=== PATIENT | male | born 1960 | race Caucasian/White ===

== ENCOUNTER → 2018-06-26 14:16 | Outpatient (CLI) | payer MEDICARE, SELFPAY ==
--- NOTE | 2018-06-26 14:21 | XR_ITS ---
XR hand LT min 3V HISTORY: Left hand pain and swelling ITS.REASON: LT HAND PAIN ORDERING PHYSICIAN: Ritesh Collins MD PATIENT AGE: 58 years COMPARISON: None FINDINGS: No fracture or dislocation. No lytic or blastic change. There is normal mineralization.. The joint spaces are well-preserved. No significant degenerative/arthritic changes. No erosive changes evident.. Tiny subarticular cystic areas present along the radial and distal aspect of the middle phalanx of the third finger according to clinical significance IMPRESSION: No acute finding. Small subarticular cyst of the DIP joint of the third finger
== END ==
PROVIDERS: PCP Internal Medicine Adolescent Medicine; Visit Provider Internal Medicine Adolescent Medicine
DX: M79.642 Pain in left hand (principal)
CPT/HCPCS: 73130

== ENCOUNTER → 2019-02-06 11:52 | Outpatient (CLI) | payer MEDICARE, SELFPAY ==
[2019-02-06 13:34] LABS: Basophils % 0.4 % (0.1-2.0); Eosinophils # 0.1 K/mm3 (0.0-0.4); Eosinophils % 2.2 % (0.1-12.0); Hematocrit 48.3 % (42.0-52.0); Hemoglobin 15.1 g/dL (14.1-18.0); Lymphocytes # 1.8 K/mm3 (0.7-4.5); Lymphocytes % 30.5 % (10-50); Mean Corpuscular HGB Conc 31.2 g/dL (31.8-35.4); Mean Corpuscular Volume 102.5 fl (80-94); Mean Platelet Volume 9.5 fl (7.4-10.4); Monocytes # 0.5 K/mm3 (0.1-1.0); Neutrophils # 3.5 K/mm3 (1.8-7.8); Neutrophils % 57.8 % (37.0-80.0); Platelet Count 191 K/mm3 (142-424); Red Blood Count 4.71 M/mm3 (4.60-6.20); Red Cell Distribution Width 13.6 % (11.5-17.5)
[2019-02-06 16:03] LABS: Alanine Aminotransferase 37 U/L (12-78); Albumin Level 3.4 gm/dL (3.4-5.0); Albumin/Globulin Ratio 0.9 (1.1-1.8); Alkaline Phosphatase 139 U/L (46-116); Anion Gap 12.7 mEq/L (5-15); Aspartate Amino Transferase 28 U/L (15-37); Blood Urea Nitrogen 41 mg/dL (7-18); Calcium 9.6 mg/dL (8.5-10.1); Carbon Dioxide 32 mmol/L (21.0-32.0); Chloride 111 mmol/L (98-107); Creatinine,Serum 1.29 mg/dL (0.70-1.30); Estimated Glomerular Filt Rate 57 ml/min (>60); GFR (African American) 69 ML/MIN (>60); Globulin 3.6 gm/dl (1.3-3.2); Glucose 127 mg/dL (74-106); Potassium 3.7 mmoL/L (3.5-5.1)
[2019-02-06 16:15] LABS: Sodium 152 mmol/L (136-145)
== END ==
PROVIDERS: PCP Nurse Practitioner Family; Visit Provider Nurse Practitioner Family
DX: N17.9 Acute kidney failure, unspecified (principal); E87.0 Hyperosmolality and hypernatremia; R13.10 Dysphagia, unspecified
CPT/HCPCS: 36415; 80053; 85025

== ENCOUNTER → 2020-04-28 09:15 | Outpatient (CLI) | payer MEDICARE, SELFPAY ==
[2020-04-28 15:57] LABS: Chloride 114 mmol/L (98-107); Potassium 4.8 mmoL/L (3.5-5.1)
[2020-04-28 16:00] LABS: Alanine Aminotransferase 198 U/L (12-78); Albumin Level 4.6 g/dl (3.5-5.0); Albumin/Globulin Ratio 1.4 (1.1-1.8); Alkaline Phosphatase 239 U/L (38-126); Anion Gap 8.8 mEq/L (5-15); Aspartate Amino Transferase 119 U/L (17-59); Calcium 10.5 mg/dl (8.4-10.2); Carbon Dioxide 33 mmol/L (22.0-30.0); Globulin 3.3 g/dL (1.3-3.2); Glucose 87 mg/dl (74-100); Total Protein,Serum 7.9 g/dl (6.3-8.2)
[2020-04-28 16:03] LABS: Sodium 151 mmol/L (136-145)
[2020-04-28 16:05] LABS: Blood Urea Nitrogen 39 mg/dl (9-20)
[2020-04-28 16:06] LABS: Estimated Glomerular Filt Rate 69 ml/min (>60); GFR (African American) 83 ML/MIN (>60)
== END ==
PROVIDERS: Visit Provider Internal Medicine Adolescent Medicine
DX: R74.8 Abnormal levels of other serum enzymes (principal)
CPT/HCPCS: 36415; 80053

== ENCOUNTER 2021-04-20 20:18 | Observation (INO) | payer MEDICARE, SELFPAY ==
[2021-04-20] VITALS (17 sets, daily range): BP systolic 105–134; BP diastolic 53–72; PULSE 71–75; RESP 10–22; TEMP 34.1–35; O2SAT 85–99; BMI 20.2
--- NOTE | 2021-04-20 20:27 | ECG_ITS ---
APPROVED REPORT Exam: Resting ECG HR:67 bpm ECG Measurements Heart Rate 67 AXES IL 176 P 76 QRSd 115 QRS 72 QT 427 T 60 QTc 443 Conclusion SINUS RHYTHM INFERIOR MYOCARDIAL INFARCTION , PROBABLY OLD [40+ ms Q WAVE AND/OR ST/T ABNORMALITY IN II/aVF] ABNORMAL ECG UNCONFIRMED REPORT Electronically signed by : Ritesh Collins MD 04/21/2021 20:23:22
--- NOTE | 2021-04-20 20:36 | XR_ITS ---
PROCEDURE INFORMATION: Exam: XR Chest Exam date and time: 04/20/2021 8:36 PM Age: 61 years old Clinical indication: Injury or trauma; Fall; Blunt trauma (contusions or hematomas); Additional info: Seizure w/ fall TECHNIQUE: Imaging protocol: XR of the chest. Views: 4 or more views. COMPARISON: CR XR CHEST 2V 02/04/2019 12:58 AM FINDINGS: Lungs: Unremarkable. No consolidation. Pleural spaces: Unremarkable. No pleural effusion. No pneumothorax. Heart/Mediastinum: Unremarkable. No cardiomegaly. Bones/joints: Degenerative changes of the shoulders. Mild scoliosis. IMPRESSION: No acute findings.
--- NOTE | 2021-04-20 20:36 | XR_ITS ---
PROCEDURE INFORMATION: Exam: XR Pelvis Exam date and time: 04/20/2021 8:36 PM Age: 61 years old Clinical indication: Injury or trauma; Fall; Blunt trauma (contusions or hematomas); Bilateral; Pelvic region; Additional info: Seizure with fall TECHNIQUE: Imaging protocol: XR pelvis. Views: 1 or 2 view. COMPARISON: No relevant prior studies available. FINDINGS: Tubes, catheters and devices: Serrato catheter with tip overlying the expected location of the urinary bladder. Bones/joints: Unremarkable. No acute fracture. Soft tissues: Unremarkable. Gastrointestinal tract: Moderate to large stool burden within the colon. IMPRESSION: No acute findings.
--- NOTE | 2021-04-20 20:36 | CT_ITS ---
PROCEDURE INFORMATION: Exam: CT Head Without Contrast Exam date and time: 04/20/2021 8:36 PM Age: 61 years old Clinical indication: Injury or trauma; Fall; Blunt trauma (contusions or hematomas); Consciousness not specified; Additional info: Seizure TECHNIQUE: Imaging protocol: Computed tomography of the head without contrast. Radiation optimization: All CT scans at this facility use at least one of these dose optimization techniques: automated exposure control; mA and/or kV adjustment per patient size (includes targeted exams where dose is matched to clinical indication); or iterative reconstruction. COMPARISON: [facility] CT HEAD W/O CONTRAST 04/15/2015 1:13 PM FINDINGS: Brain: White matter changes compatible with small vessel occlusive change. No mass. No hemorrhage. Cerebral ventricles: No ventriculomegaly. Paranasal sinuses: Minimal debris within the posterior left maxillary sinus. Mastoid air cells: Visualized mastoid air cells are well aerated. Bones/joints: Mild deviation of the nasal bones left. Soft tissues: No significant soft tissue abnormality. IMPRESSION: Mild deviation of the nasal bones left which is of unknown chronicity. Correlation with point tenderness is recommended. Paranasal sinus disease.
--- NOTE | 2021-04-20 20:38 | CT_ITS ---
PROCEDURE INFORMATION: Exam: CT Cervical Spine Without Contrast Exam date and time: 04/20/2021 8:38 PM Age: 61 years old Clinical indication: Injury or trauma; Fall; Blunt trauma TECHNIQUE: Imaging protocol: Computed tomography images of the cervical spine without contrast. Radiation optimization: All CT scans at this facility use at least one of these dose optimization techniques: automated exposure control; mA and/or kV adjustment per patient size (includes targeted exams where dose is matched to clinical indication); or iterative reconstruction. COMPARISON: [facility] CT HEAD W/O CONTRAST 04/15/2015 1:13 PM FINDINGS: Bones/joints: Moderate to advanced multilevel degenerative changes. No acute fracture. Trachea: Debris within the posterior trachea. Lungs: Scarring at the lung apices. Soft tissues: No soft tissue swelling. IMPRESSION: No acute osseous abnormality. Debris within the posterior trachea which can be seen with aspiration.
[2021-04-20 20:42] LABS: Microscopic, Urine URINE MICROSCOPIC (MICROSCOPIC)
[2021-04-20 21:09] LABS: Basophils % 0.2 % (0.1-2.0); Eosinophils % 0.4 % (0.1-12.0); Hematocrit 41.9 % (42.0-52.0); Hemoglobin 13.7 g/dL (14.1-18.0); Lymphocytes # 1.2 K/mm3 (0.7-4.5); Lymphocytes % 10.1 % (10-50); Mean Corpuscular HGB Conc 32.8 g/dL (31.8-35.4); Mean Corpuscular Hemoglobin 33.3 pg (27.0-31.2); Mean Corpuscular Volume 101.6 fl (80-94); Mean Platelet Volume 9.7 fl (7.4-10.4); Monocytes # 0.6 K/mm3 (0.1-1.0); Monocytes % 5.1 % (1.7-9.3); Neutrophils # 9.8 K/mm3 (1.8-7.8); Neutrophils % 84.2 % (37.0-80.0); Platelet Count 152 K/mm3 (142-424); Red Blood Count 4.12 M/mm3 (4.60-6.20); Red Cell Distribution Width 16.2 % (11.5-17.5); White Blood Count 11.6 K/mm3 (4.8-10.8)
[2021-04-20 21:11] LABS: Alanine Aminotransferase 123 U/L (12-78); Albumin Level 4.2 g/dl (3.5-5.0); Albumin/Globulin Ratio 1.5 (1.1-1.8); Alkaline Phosphatase 153 U/L (38-126); Anion Gap 7.7 mEq/L (5-15); Aspartate Amino Transferase 119 U/L (17-59); Bilirubin,Total 0.6 mg/dl (0.2-1.3); Blood Urea Nitrogen 42 mg/dl (9-20); Calcium 9.8 mg/dl (8.4-10.2); Carbon Dioxide 32 mmol/L (22.0-30.0); Chloride 111 mmol/L (98-107); Creatine Kinase 117 U/L (55-170); Creatinine Clearance Estimated 81 mL/min (50-200); Estimated Glomerular Filt Rate 86 ml/min (>60); GFR (African American) 104 ML/MIN (>60); Globulin 2.8 g/dL (1.3-3.2); Glucose 95 mg/dl (74-100); Potassium 4.7 mmoL/L (3.5-5.1); Sodium 146 mmol/L (136-145)
[2021-04-20 21:16] LABS: C-Reactive Protein 2.8 mg/L (0-4)
[2021-04-20 21:21] LABS: Appearance,Urine CLEAR (Clear); Bilirubin,Urine Negative (Negative); Blood, Urine Negative (Negative); Color,Urine YELLOW (Yellow); Glucose,Urine (UA) Negative (Negative); Ketones,Urine Negative (Negative); Leukocyte Esterase,Urine Negative (Negative); Nitrate,Urine Negative (Negative); PH,Urine 6.5 (5.0-8.5); Protein,Urine 1+ (Negative); Urobilinogen,Urine 0.2 EU/dl (0.2)
[2021-04-20 21:30] LABS: Procalcitonin 0.086 ng/mL (0.0-2.0)
[2021-04-20 21:39] LABS: Coronavirus 19, PCR Not Detected (NotDetected); Influenza A, PCR Not Detected (NotDetected); Influenza B, PCR Not Detected (NotDetected)
--- NOTE | 2021-04-20 21:42 | HMH.EDSEIZ ---
ED Disposition Clinical Impression: New onset seizure Disposition: Admitted as Observation Condition on Discharge: Good Instructions: DI for Seizure Disorder -- Adult, DI for Seizure (Not Epilepsy/Seizure Disorder), DI for Seizure Disorder -- Child Referrals: Ritesh Collins MD [Primary Care Provider] - - Critical Care Critical Care Time: No Attestation: On 04/20/21, the high probability of a clinically significant, sudden or life threatening deterioration of the following system(s) required my full and direct attention, intervention and personal management. The time I documented below is in addition to time spent performing reported procedures but includes the following listed in this critical care notation. Medical Decision Making - Medical Records Medical records reviewed: Yes: I reviewed the patient's medical records. - Juan J Inquiry Pt receiving controlled substance: No Vital Signs: 04/20/21 20:08 Temperature 95 F L Temperature Source Rectal Pulse Rate [Left] 72 Respiratory Rate 16 Blood Pressure [Right Arm] 105/66 L Blood Pressure Mean [Right Arm] 79 02 Sat by Pulse Oximetry 95 Oxygen Delivery Method Room Air - Lab Data Lab results reviewed: Yes: I reviewed the patient's lab results. Lab Results 04/20/21 20:34: Urine Color Yellow, Urine Appearance Clear, Urine pH 6.5, Ur Specific [place] 1.020, Urine Protein 1+, Urine Glucose (UA) Negative, Urine Ketones Negative, Urine Blood Negative, Urine Nitrate Negative, Urine Bilirubin Negative, Urine Urobilinogen 0.2, Ur Leukocyte Esterase Negative, Urine WBC Occasional 04/20/21 20:34: Urine Opiates Screen Negative, Urine Methadone Screen Negative, Ur Barbituates Screen Negative, Ur Phencyclidine Scrn Negative, Ur Amphetamines Screen Negative, U Benzodiazepines Scrn Positive H, Urine Cocaine Screen Negative, U Marijuana (THC) Screen Positive H 04/20/21 20:37: SARS-CoV-2 (PCR) Not detected, Influenza A Untype (PCR) Not detected, Influenza Type B (PCR) Not detected 04/20/21 20:48: WBC 11.6 H, RBC 4.12 L, Hgb 13.7 L, Hct 41.9 L, MCV 101.6 H, MCH 33.3 H, MCHC 32.8, RDW 16.2, Plt Count 152, MPV 9.7, Neut % (Auto) 84.2 H, Lymph % (Auto) 10.1, [place] % (Auto) 5.1, Eos % (Auto) 0.4, Baso % (Auto) 0.2, Neut # (Auto) 9.8 H, Lymph # (Auto) 1.2, [place] # (Auto) 0.6, Eos # (Auto) 0.0, Baso # (Auto) 0.0, ESR 31 H 04/20/21 20:48: Sodium 146 H, Potassium 4.7, Chloride 111 H, Carbon Dioxide 32 H, Anion Gap 7.7, BUN 42 H, Creatinine 0.90, Estimated Creat Clear 81, Estimated GFR 86, Est GFR ( Amer) 104, Glucose 95, Calcium 9.8, Total Bilirubin 0.6, AST 119 H, ALT 123 H, Alkaline Phosphatase 153 H, Total Creatine Kinase 117, C-Reactive Protein 2.8, Total Protein 7.0, Albumin 4.2, Globulin 2.8, Albumin/Globulin Ratio 1.5, Procalcitonin 0.086 04/20/21 20:48: Lactate 1.0 04/20/21 20:48: Plasma/Serum Alcohol < 10 04/20/21 20:48: Salicylates < 1.0 L, Acetaminophen < 10 L Result diagrams: 04/20/21 20:48 04/20/21 20:48 Orders (Tests/Meds): ED MEDICATIONS Discontinued Medications Generic Name Dose Route Start Last Admin Trade Name Freq PRN Reason Stop Dose Admin Levetiracetam 1,000 mg/ Sodium 110 mls @ 220 mls/hr 04/20/21 22:26 Chloride IV 04/20/21 22:27 ONCE ONE ORDERS Category Date Time Status Blood Culture Stat Micro 04/20/21 20:38 Received - Radiology Data #1 Image(s): Chest, Pelvis Image Reviewed: Yes I have reviewed radiologist's interpretation Preliminary Findings: No Fracture Seen - CT Data CT Scan: Head, C-Spine Time Received: 22:[address] Reviewed: Yes: I have viewed the radiologist's interpretation Preliminary Findings: No Fracture Seen - ECG Data Tracing #1 Normal Sinus Rhythm: Yes Ischemic changes: non-specific ST-T wave changes - Physician Consults Physician Consulted: jennifer Reason -: Admission Medical Decision Narrative: prob sz and will be admitted at this time Seizures HPI - General Chief Complaint:
--- NOTE | 2021-04-20 21:43 | PC.NURSE ---
pt waking up disoriented attempting to pull lines and cath. pads in place. doc at bedside
[2021-04-20 21:51] LABS: Acetaminophen < 10 ug/ml (10-30); Ethyl Alcohol < 10 mg/dl (0-10); Salicylate < 1.0 mg/dL (2.0-20.0)
[2021-04-20 21:53] LABS: WBC,Urine Occasional #/hpf (0-3)
[2021-04-20 22:01] LABS: Benzodiazepines Screen,Urine Positive ng/ml (<200)
[2021-04-20 22:02] LABS: Amphetamine/Metha Screen,Urine Negative ng/ml (<1000)
[2021-04-20 22:03] LABS: Barbiturates Screen,Urine Negative ng/ml (<200)
[2021-04-20 22:04] LABS: Cannabinoid Screen,Urine Positive ng/ml (<50); Cocaine Screen,Urine Negative ng/ml (<300)
[2021-04-20 22:05] LABS: Methadone Screen,Urine Negative ng/ml (<300); Opiate Screen,Urine Negative ng/ml (<300)
[2021-04-20 22:06] LABS: Phencyclidine Screen,Urine Negative ng/ml (<25)
[2021-04-20 22:09] LABS: Erythrocyte Sedimentation Rate 31 mm/hr (0-20)
--- NOTE | 2021-04-20 23:12 | PC.NURSE ---
Patients temperature upon arrival to ER was 95.0f rectally. patient was given two warm blankets and warm iv fluids. Patients temperature was again rechecked at 2300 and temperature was 93.4 rectally. Patient placed on mara rodriguez MD notified.
[2021-04-21] VITALS (9 sets, daily range): BP systolic 98–133; BP diastolic 49–100; PULSE 61–97; RESP 16–20; TEMP 35.1–36.7; O2SAT 93–100; BMI 17.2
--- NOTE | 2021-04-21 01:08 | PC.NURSE ---
PT ARRIVED TO FLOOR VIA STRETCHER FROM ED W/STAFF @ [phone]
[2021-04-21 06:15] LABS: Basophils % 0.3 % (0.1-2.0); Eosinophils % 0.3 % (0.1-12.0); Hematocrit 38.3 % (42.0-52.0); Hemoglobin 12.7 g/dL (14.1-18.0); Lymphocytes # 1.6 K/mm3 (0.7-4.5); Lymphocytes % 13.8 % (10-50); Mean Corpuscular Hemoglobin 33.1 pg (27.0-31.2); Mean Corpuscular Volume 100.1 fl (80-94); Monocytes # 0.7 K/mm3 (0.1-1.0); Monocytes % 6.1 % (1.7-9.3); Neutrophils # 9.1 K/mm3 (1.8-7.8); Neutrophils % 79.5 % (37.0-80.0); Platelet Count 144 K/mm3 (142-424); Red Blood Count 3.83 M/mm3 (4.60-6.20); Red Cell Distribution Width 16.1 % (11.5-17.5); White Blood Count 11.4 K/mm3 (4.8-10.8)
[2021-04-21 06:25] LABS: Chloride 111 mmol/L (98-107); Potassium 4.3 mmoL/L (3.5-5.1); Sodium 143 mmol/L (136-145)
[2021-04-21 06:27] LABS: Blood Urea Nitrogen 33 mg/dl (9-20); Creatinine Clearance Estimated 69 mL/min (50-200); Estimated Glomerular Filt Rate 86 ml/min (>60); GFR (African American) 104 ML/MIN (>60)
[2021-04-21 06:28] LABS: Anion Gap 5.3 mEq/L (5-15); Calcium 8.7 mg/dl (8.4-10.2); Carbon Dioxide 31 mmol/L (22.0-30.0); Glucose 54 mg/dl (74-100); Magnesium 1.6 mg/dl (1.6-2.3)
--- NOTE | 2021-04-21 06:29 | PC.NURSE ---
pt has not rested well, has been pulling at lines and catheter, PRN medications given for anxiety with little change in behavior, is alert to name, birthdate, and that he is at [facility], but has confusion and has repeated words over and over, catheter D/C this shift per Dr. Collins
--- NOTE | 2021-04-21 08:12 | HMH.PHAVTE ---
[facility] Pharmacy VTE Monitoring - Patient Demographics Admission date: 04/21/21 Report Date: 04/21/21 Time: 08:12 Allergies/Adverse Reactions: Patient Allergies No Known Allergies Allergy (Verified 02/04/19 00:37) Height: 1.8 m Weight: 55.928 kg Patient Problems: Current Active Problems New onset seizure (Acute) - VTE Risk Labs: VTE Related Lab Results Hgb 12.7 g/dL (14.1-18.0) L 04/21/21 05:12 Hct 38.3 % (42.0-52.0) L 04/21/21 05:12 Plt Count 144 K/mm3 (142-424) 04/21/21 05:12 BUN 33 mg/dl (9-20) H 04/21/21 05:12 Creatinine 0.90 mg/dl (0.66-1.25) 04/21/21 05:12 Estimated Creat Clear 69 mL/min (50-200) 04/21/21 05:12 Was VTE Risk Assessment Performed: Yes VTE Score: 2 VTE Risk Level: Very Low Risk Clinical Trial Participant: No - Prophylaxis VTE Prophylaxis Ordered?: Yes Types of VTE Prophylaxis: TEDS Knee High
--- NOTE | 2021-04-21 08:40 | HMH.HP ---
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 Unfortunately yesterday while at home with his family he became unresponsive, had some tonic-clonic activity, drooling, eye rotation, EMS was called and witnessed what appeared to be generalized tonic-clonic seizure activity. He was given Versed intravenously and by the time he got to the emergency department this had stopped but he was exhibiting post ictal behaviors and was very somnolent. CT scan in the ER was unremarkable, labs were unrevealing and we decided to admit patient to hospital and I had him loaded with Keppra, 1000 mg IV in the ER. Patient now is in second floor for observation and further diagnostic testing. He is alert, talkative but remains disoriented. 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, lives independently and performs ADLs of center home Other Surgeries: Yes: Cardiac Catheterization Amputation: No Fractures: No - *Social History Smoking Status: Current every day smoker Tobacco Type: cigarettes # Packs/Day (cigarettes): 2 Alcohol Intake: never *Occupational Status:: disabled Household Members: none *Travel in the last 8 weeks: None Family Hx:: No significant family history Review of Systems - Review of Systems Review of systems:: unable to obtain Meds Home Medications Medication Instructions Recorded Confirmed Type Atorvastatin Calcium [Lipitor 20mg 20 mg PO HS 04/20/21 04/20/21 History Tablet*] Omeprazole [Omeprazole 20mg 20 mg PO DAILY 04/20/21 04/20/21 History Capsule] Allergies Allergy/AdvReac Type Severity Reaction Status Date / Time No Known Allergies Allergy Verified 02/04/19 00:37 Exam Vital signs and Labs for Last 24 Hours: Temp Pulse Resp BP Pulse Ox 97.7 F 64 16 116/50 L 96 04/21/21 08:00 04/21/21 08:00 04/21/21 08:00 04/21/21 08:00 04/21/21 08:00 Laboratory Results - last 24 hr 04/20/21 20:34: Urine Color Yellow, Urine Appearance Clear, Urine pH 6.5, Ur Specific [place] 1.020, Urine Protein 1+, Urine Glucose (UA) Negative, Urine Ketones Negative, Urine Blood Negative, Urine Nitrate Negative, Urine Bilirubin Negative, Urine Urobilinogen 0.2, Ur Leukocyte Esterase Negative, Urine WBC Occasional 04/20/21 20:34: Urine Opiates Screen Negative, Urine Methadone Screen Negative, Ur Barbituates Screen Negative, Ur Phencyclidine Scrn Negative, Ur Amphetamines Screen Negative, U Benzodiazepines Scrn Positive H, Urine Cocaine Screen Negative, U Marijuana (THC) Screen Positive H 04/20/21 20:37: SARS-CoV-2 (PCR) Not detected, Influenza A Untype (PCR) Not detected, Influenza Type B (PCR) Not detected 04/20/21 20:48: WBC 11.6 H, RBC 4.12 L, Hgb 13.7 L, Hct 41.9 L, MCV 101.6 H, MCH 33.3 H, MCHC 32.8, RDW 16.2, Plt Count 152, MPV 9.7, Neut % (Auto) 84.2 H, Lymph % (Auto) 10.1, [place] % (Auto) 5.1, Eos % (Auto) 0.4, Baso % (Auto) 0.2, Neut # (Auto) 9.8 H, Lymph # (Auto) 1.2, [place] # (Auto) 0.6, Eos # (Auto) 0.0, Baso # (Auto) 0.0, ESR 31 H 04/20/21 20:48: Sodium 146 H, Potassium 4.7, Chloride 111 H, Carbon Dioxide 32 H, Anion Gap 7.7, BUN 42 H, Creatinine 0.90, Estimated Creat Clear 81, Estimated GFR 86, Est GFR ( Amer) 104, Glucose 95, Calcium 9.8, Total Bilirubin 0.6, AST 119 H, ALT 123 H, Alkaline Phosphatase 153 H, Total Creatine Kinase 117, C-Reactive Prote
--- NOTE | 2021-04-21 10:18 | PC.NURSE ---
RT @ bedside to perform EEG
--- NOTE | 2021-04-21 13:14 | PC.NURSE ---
Addendum entered by Brooklyn Vieyra RN 04/21/21 18:06: No acute changes this afternoon. Pt has slept at intervals this shift. Family have been in periodically to see patient as well. Pt is cooperative and pleasant w/ staff. Diet changed to chopped meats d/t pt's poor dentition. No complaints voiced. Safety in place. Original Note: Pt awake, alert and is able to speak in sentences. Pt is tearful occasionally, but states he doesn't know why he is crying and continues to apologize to staff. Father is present at bedside. Pt cooperative w/ staff and not trying to get out of bed independently. Safety does remain in place, call linus w/in reach.
--- NOTE | 2021-04-21 21:25 | PC.NURSE ---
Pt's rectal temp 95.0, applied warm blankets, and increased room temp, will recheck temp in one hour.
[2021-04-22] VITALS: BP 91/47; PULSE 51; RESP 16; TEMP 36.4; O2SAT 96
[2021-04-22 04:00] VITALS: BP 101/49; PULSE 47; RESP 16; TEMP 36.4; O2SAT 98
[2021-04-22 05:16] VITALS: BMI 17.2
[2021-04-22 06:44] LABS: Chloride 107 mmol/L (98-107); Potassium 4.2 mmoL/L (3.5-5.1); Sodium 137 mmol/L (136-145)
--- NOTE | 2021-04-22 06:44 | PC.NURSE ---
Pt temp improved and remained stable t/o shift. Pt was cooperative t/o night and slept well. Bed safety remains in place.
[2021-04-22 06:47] LABS: Alanine Aminotransferase 87 U/L (12-78); Albumin Level 3.4 g/dl (3.5-5.0); Albumin/Globulin Ratio 1.4 (1.1-1.8); Alkaline Phosphatase 134 U/L (38-126); Anion Gap 4.2 mEq/L (5-15); Aspartate Amino Transferase 89 U/L (17-59); Bilirubin,Total 0.9 mg/dl (0.2-1.3); Blood Urea Nitrogen 27 mg/dl (9-20); Calcium 8.4 mg/dl (8.4-10.2); Carbon Dioxide 30 mmol/L (22.0-30.0); Creatinine Clearance Estimated 69 mL/min (50-200); Estimated Glomerular Filt Rate 86 ml/min (>60); GFR (African American) 104 ML/MIN (>60); Globulin 2.5 g/dL (1.3-3.2); Glucose 65 mg/dl (74-100); Total Protein,Serum 5.9 g/dl (6.3-8.2)
[2021-04-22 06:48] LABS: Basophils % 0.2 % (0.1-2.0); Eosinophils # 0.1 K/mm3 (0.0-0.4); Eosinophils % 1.5 % (0.1-12.0); Hematocrit 35.7 % (42.0-52.0); Hemoglobin 11.6 g/dL (14.1-18.0); Lymphocytes % 35.7 % (10-50); Mean Corpuscular HGB Conc 32.4 g/dL (31.8-35.4); Mean Corpuscular Hemoglobin 32.9 pg (27.0-31.2); Mean Corpuscular Volume 101.4 fl (80-94); Mean Platelet Volume 10.3 fl (7.4-10.4); Monocytes # 0.3 K/mm3 (0.1-1.0); Monocytes % 5.8 % (1.7-9.3); Neutrophils # 3.1 K/mm3 (1.8-7.8); Neutrophils % 56.7 % (37.0-80.0); Platelet Count 115 K/mm3 (142-424); Red Blood Count 3.52 M/mm3 (4.60-6.20); Red Cell Distribution Width 16.1 % (11.5-17.5); White Blood Count 5.5 K/mm3 (4.8-10.8)
--- NOTE | 2021-04-22 07:25 | HMH.ACPN2 ---
Internal Medicine - PN: Subj *Date: 04/22/21 *Time: 07:25 Exam Vital signs and Labs for Last 24 Hours: Temp Pulse Resp BP Pulse Ox 97.6 F 47 L 16 101/49 L 98 04/22/21 04:00 04/22/21 04:00 04/22/21 04:00 04/22/21 04:00 04/22/21 04:00 Laboratory Results - last 24 hr 04/22/21 05:19: WBC 5.5 D, RBC 3.52 L, Hgb 11.6 L, Hct 35.7 L, MCV 101.4 H, MCH 32.9 H, MCHC 32.4, RDW 16.1, Plt Count 115 L, MPV 10.3, Neut % (Auto) 56.7, Lymph % (Auto) 35.7, [place] % (Auto) 5.8, Eos % (Auto) 1.5, Baso % (Auto) 0.2, Neut # (Auto) 3.1, Lymph # (Auto) 2.0, [place] # (Auto) 0.3, Eos # (Auto) 0.1, Baso # (Auto) 0.0 04/22/21 05:19: Sodium 137, Potassium 4.2, Chloride 107, Carbon Dioxide 30, Anion Gap 4.2 L, BUN 27 H, Creatinine 0.90, Estimated Creat Clear 69, Estimated GFR 86, Est GFR ( Amer) 104, Glucose 65 L, Calcium 8.4, Total Bilirubin 0.9, AST 89 H D, ALT 87 H D, Alkaline Phosphatase 134 H, Total Protein 5.9 L, Albumin 3.4 L D, Globulin 2.5, Albumin/Globulin Ratio 1.4 I & O for Last 24 hours: Intake & Output 04/19/21 04/20/21 04/21/21 04/22/21 23:59 23:59 23:59 23:59 Intake Total 1238 / 1238 Output Total 800 / 800 Balance 438 / 438 Weight 65.771 kg 55.928 kg 55.883 kg Assessment and Plan (1) History of coronary atherosclerosis Status: Acute Category: Medical Code(s): Z86.79 - Personal history of other diseases of the circulatory system (2) History of traumatic brain injury Status: Acute Category: Medical Code(s): Z87.820 - Personal history of traumatic brain injury (3) Cognitive impairment Status: Acute Category: Medical Code(s): R41.89 - Other symptoms and signs involving cognitive functions and awareness (4) New onset seizure Status: Acute Category: Medical Code(s): R56.9 - Unspecified convulsions
[2021-04-22 08:00] VITALS: BP 115/70; PULSE 51; RESP 22; TEMP 36.4; O2SAT 95
--- NOTE | 2021-04-22 09:12 | PC.NURSE ---
Spoke to patient's brother (Chris) this AM, updated on plan of care. Brother gave his # for DC planning to call , gave this # to Dagmar as well w/ case management.
--- NOTE | 2021-04-22 09:22 | SW/DCPLANNER ---
Addendum entered by Noy Sparks 04/22/21 14:58: Gayla suggs/ [facility] has stated that services will begin on 04/27/21. Addendum entered by Noy Sparks 04/22/21 12:33: Patient information/order has been faxed to [facility]. I will follow up with Gayla from [facility] once information/order is reviewed. Original Note: I spoke with patients brother (Chris) regarding discharge plans. I explained to Chris that Dr Saini stressed the importance of home with family 24/7 vs placement. Chris stated that prior to hospital admission patient was living at home alone: the plan at discharge is for patient to move in with his father. I informed Chris that PT will evaluate patient this AM then I will call him back with updates. This patient could potentially discharge later today.
--- NOTE | 2021-04-22 10:47 | HMH.OTEV ---
OT Inpatient Evaluation Rehab OT IP Evaluation Start: 04/22/21 08:01 Freq: ONCE Status: Complete Protocol: Document 04/22/21 10:35 [email or web address] (Rec: 04/22/21 10:47 [facility] [id number]) Rehab OT IP Assessment Subjective History Pt oriented x 3 on arrival. Pt agreeable to engage in therapy evaluation. Pt was admitted via ED on 09/17/21 due to a seizure. 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 Unfortunately yesterday while at home with his family he became unresponsive, had some tonic-clonic activity, drooling, eye rotation, EMS was called and witnessed what appeared to be generalized tonic-clonic seizure activity. He was given Versed intravenously and by the time he got to the emergency department this had stopped but he was exhibiting post ictal behaviors and was very somnolent. CT scan in the ER was unremarkable, labs were unrevealing and we decided to admit patient to hospital and I had him loaded with Keppra, 1000 mg IV in the ER. Patient now is in second floor for observation and further diagnostic testing. Pt has a past medical history of Atherosclerotic Heart Disease, Coronary Artery Disease. Pt reports pior to his seizure he lived at home alone. He
[2021-04-22 10:58] VITALS: BMI 16.9
--- NOTE | 2021-04-22 11:20 | HMH.PTEV ---
Physical Therapy Evaluation Rehab PT IP Evaluation Start: 04/22/21 08:01 Freq: ONCE Status: Active Protocol: Document 04/22/21 11:17 PHORNE (Rec: 04/22/21 11:20 PHORNE [id number]) Subjective/History History History 61 yowm adm to [facility] after seizure at home. He reports he lives alone, 4-5 steps to enter the home and is generally independent with all mobility using SC. He does have remote hx of TBI. Subjective Subjective Pt reports no new c/o this am. Rehab PT IP Eval Objective Appearance Patient Behavior Appropriate Patient Orientation Person,Place,Time Difficulty following instructions none Speech Pattern Clear Ambulation Patient Able to Ambulate Yes Ambulation Observation IP General Gait Pattern Observation Shuffling Step Ambulation Distance (feet) 20 Ambulation Assistive Device None Ambulation Ability Contact Guard/Hand Hold Balance Ability to Arise Able, uses arms to help Sitting Balance Steady, safe Standing Balance Steady, wide stance Dynamic Sitting Balance Ability Good Dynamic Standing Balance Ability Fair Transfers Bed Transfer Ability Contact Guard/Hand Hold Chair Transfer Ability Contact Guard/Hand Hold Sit to Stand Bed Transfer Ability Contact Guard/Hand Hold Sit to Stand Chair Transfer Ability Contact Guard/Hand Hold Rehab PT IP prob,goals,plan Problems Date of Evaluation: 04/22/21 PT IP Problems Bed Mobility,Transfers,Gait, Self care Rehab Potential Rehab Potential Good Plan PT Intervention Plan Bed Mobility,Transfers,Gait, Self care,Therapeutic Exercise PT Plan Frequency BID Duration LOS Discharge Goals Bed Transfer Ability Supervision/Stand by Sit to Stand Chair Transfer Ability Supervision/Stand by Ambulation Assistive Device Straight Cane Ambulation Distance (feet) 40 Discharge Plan PT Discharge Plan Pt is currently appropriate to return home once medically stable with family assist. G -code Required No Eval Complexity Eval Charge Codes 86402 - Moderate Complexity PHYSICIAN CERTIFICATION: I certify the specified therapy services for Rafa Driscoll are required, authorized, and reviewed every 30 days.
--- NOTE | 2021-04-22 13:35 | HMH.DCSUM ---
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 Unfortunately yesterday while at home with his family he became unresponsive, had some tonic-clonic activity, drooling, eye rotation, EMS was called and witnessed what appeared to be generalized tonic-clonic seizure activity. He was given Versed intravenously and by the time he got to the emergency department this had stopped but he was exhibiting post ictal behaviors and was very somnolent. CT scan in the ER was unremarkable, labs were unrevealing and we decided to admit patient to hospital and I had him loaded with Keppra, 1000 mg IV in the ER. Patient now is in second floor for observation and further diagnostic testing. He is alert, talkative but remains disoriented. Hospital Course Hospital Course: 61-year-old male with history of traumatic brain injury. Came to the ER due to new onset seizure. Brought in by EMS. 2 witnessed seizures by family and hospital/EMS. Responded well to Versed. Started on Keppra p.o. Tolerating well with no further seizure activity during hospitalization. Drug screen interestingly positive for marijuana. Given traumatic brain injury, toxin exposure, suspect these are likely the cause of his seizure. CT obtained with no gross abnormalities or focal findings. No signs of stroke. Deferred on EEG there is no further seizure activity. Consider further work-up in the outpatient setting. Pt back to baseline. Patient pleasant on day of discharge. Examined with no focal findings. Assessed by physical therapy and Occupational Therapy. Plan to discharge home with family so he can be observed. Counseled on new medication and potential side effects. We will potentially adjust dose in the outpatient setting. close follow-up in the next 1-2 weeks. stable for DC home. Objective Vital signs: Temp Pulse Resp BP Pulse Ox 97.5 F L 51 L 22 115/70 95 04/22/21 08:00 04/22/21 08:00 04/22/21 08:00 04/22/21 08:00 04/22/21 08:00 Narrative: - Constitutional no acute distress, thin, disheveled, alert, baseline mentation - *Routine HEENT Exam Head: Present: normocephalic Eye: Present: EOMI, PERRL ENT: Present: mucous membranes moist, poor dentition - *Routine Neck Exam Present: supple. Absent: lymphadenopathy - *Routine Respiratory Exam Present: CTA bilaterally - *Routine Cardiovascular Exam Present: RRR - *Routine Abdominal Exam Present: soft, normoactive bowel sounds. Absent: tenderness - *Routine Extremities Exam Present: full ROM. Absent: cyanosis, clubbing, edema - *Routine Skin Exam Present: warm. Absent: rash - *Routine Neurological Exam Present: alert; Patient is very verbal, however has somewhat of a word salad conversation, continues to go back and forth between talking about eating and going to the bathroom. pleasant. Mood and affect congruent; He is able to move arms and legs well. No grossly abnormal cranial nerves. Results Labs on day of discharge: Labs from last 24 hours 04/22/21 04/22/21 05:19 05:19 WBC 5.5 D RBC 3.52 L Hgb 11.6 L Hct 35.7 L MCV 101.4 H MCH 32.9 H MCHC 32.4 RDW 16.1 Plt Count 115 L MPV 10.3 Neut % (Auto) 56.7 Lymph % (Auto) 35.7 Carver % (Auto) 5.8 Eos % (Auto) 1.5 Baso % (Auto) 0.2 Neut # (Auto) 3.1 Lymph # (Auto) 2.0 Carver # (Auto) 0.3 Eos # (Auto) 0.1 Baso # (Auto) 0.0 Sodium 137 Potassium 4.2 Chloride 107 Carbon Dioxide 30 Anion Gap 4.2 L BUN 27 H Creatinine 0.90 Estimated Creat Clear 69 Estimated GFR 86 Est GFR ( Amer) 104 Glucose 65 L Calcium 8.4 Total Bilirubin 0.9 AST 89
--- NOTE | 2021-04-22 13:57 | HMH.PHAINT ---
Discharge counseling complete. Informed patient of new medications, purpose, how to take, and possible side effects. Pt understood and had no questions or concerns
== END 2021-04-22 14:34 | disposition home or self-care (01) ==
LOC: ER 20:28 → 2ND 22:32
PROVIDERS: Admitting Provider Internal Medicine Adolescent Medicine; Emergency Provider Emergency Medicine; PCP Internal Medicine Adolescent Medicine; Visit Provider Internal Medicine Adolescent Medicine
DX: R56.9 Unspecified convulsions (principal); Z87.820 Personal history of traumatic brain injury; R41.89 Other symptoms and signs involving cognitive functions and awareness; F17.210 Nicotine dependence, cigarettes, uncomplicated; R64 Cachexia; Z68.1 Body mass index [BMI] 19.9 or less, adult; Z20.822 Contact with and (suspected) exposure to COVID-19; Z79.899 Other long term (current) drug therapy
CPT/HCPCS: G0378; 36415; 70450; 71045; 72125; 72170; 80048; 80053; 80305; 80329; 81001; 82550; 83605; 83735; 84145; 85025; 85651; 86140; 87040; 93005; 95816; 96365; 97116; 97162; 97166; 97530; 99284; C9803; J1953; U0003; U0005

== ENCOUNTER 2021-05-09 13:31 | Outpatient (CLI) | payer MEDICARE, SELFPAY ==
[2021-05-09 13:54] VITALS: BMI 16.4
[2021-05-09 14:00] VITALS: BP 122/64; PULSE 44; RESP 18; TEMP 36.4; O2SAT 100
[2021-05-09 14:30] VITALS: BP 119/60; PULSE 49; RESP 18; O2SAT 99
[2021-05-09 15:04] LABS: Basophils # 0.1 K/mm3 (0-0.2); Basophils % 0.7 % (0.1-2.0); Eosinophils # 0.1 K/mm3 (0.0-0.4); Eosinophils % 1.2 % (0.1-12.0); Hematocrit 46.2 % (42.0-52.0); Lymphocytes # 2.2 K/mm3 (0.7-4.5); Lymphocytes % 27.5 % (10-50); Mean Corpuscular HGB Conc 30.3 g/dL (31.8-35.4); Mean Corpuscular Hemoglobin 32.9 pg (27.0-31.2); Mean Corpuscular Volume 108.6 fl (80-94); Mean Platelet Volume 10.2 fl (7.4-10.4); Monocytes # 0.4 K/mm3 (0.1-1.0); Monocytes % 4.7 % (1.7-9.3); Neutrophils # 5.2 K/mm3 (1.8-7.8); Neutrophils % 65.9 % (37.0-80.0); Platelet Count 166 K/mm3 (142-424); Red Blood Count 4.25 M/mm3 (4.60-6.20)
[2021-05-09 15:15] VITALS: BP 107/48; PULSE 48; RESP 18; O2SAT 99
[2021-05-09 15:33] LABS: Anion Gap 10.4 mEq/L (5-15); Blood Urea Nitrogen 70 mg/dl (9-20); Calcium 9.3 mg/dl (8.4-10.2); Carbon Dioxide 29 mmol/L (22.0-30.0); Chloride 115 mmol/L (98-107); Creatinine Clearance Estimated 70 mL/min (50-200); Estimated Glomerular Filt Rate 99 ml/min (>60); GFR (African American) 119 ML/MIN (>60); Glucose 76 mg/dl (74-100); Potassium 4.4 mmoL/L (3.5-5.1)
[2021-05-09 15:35] LABS: Sodium 150 mmol/L (136-145)
--- NOTE | 2021-05-09 15:51 | PC.NURSE ---
05/09/21 1534 Bj Najera called Braden Michael RN at 1534 to report na level 150. RN repeated and verified pt name, , and lab value. Result called to Ayanna Aguila APRN/Dr. Collins, no new orders noted.
== END 2021-05-09 15:50 | disposition home or self-care (01) ==
PROVIDERS: PCP Internal Medicine Adolescent Medicine; Visit Provider Nurse Practitioner Family
DX: E87.0 Hyperosmolality and hypernatremia (principal)
CPT/HCPCS: 80048; 85025; 96360

== ENCOUNTER → 2021-05-12 08:16 | Outpatient (CLI) | payer MEDICARE, SELFPAY ==
--- NOTE | 2021-05-12 09:02 | MR_ITS ---
FINAL REPORT CLINICAL HISTORY: WEAKNESS.. UNABLE TO WALK. 10ML PROHANCE GIVEN. SEIZURE FINDINGS: Multiplanar MR imaging of the brain was performed without and with contrast. There is no evidence of intracranial hemorrhage or mass. No abnormal extra-axial fluid collection is seen. The ventricular size is within normal limits. There is no evidence of shift of the midline structures. The posterior fossa and brainstem have an unremarkable appearance. No area of abnormal restricted diffusion is identified. No abnormal contrast enhancement is seen. Normal major vessel vascular flow voids are noted. IMPRESSION: No acute intracranial abnormality identified. Reviewed, Interpreted and Dictated by Rafa Mena III, MD Transcribed by Selena Sr Authenticated by Rafa Mena III, MD on 05/12/2021 11:38:31 AM [facility]
[2021-05-12 09:08] LABS: Chloride 107 mmol/L (98-107); Sodium 144 mmol/L (136-145)
[2021-05-12 09:11] LABS: Alanine Aminotransferase 222 U/L (12-78); Albumin Level 4.1 g/dl (3.5-5.0); Albumin/Globulin Ratio 1.3 (1.1-1.8); Alkaline Phosphatase 225 U/L (38-126); Aspartate Amino Transferase 138 U/L (17-59); Bilirubin,Total 0.8 mg/dl (0.2-1.3); Blood Urea Nitrogen 38 mg/dl (9-20); Calcium 9.1 mg/dl (8.4-10.2); Carbon Dioxide 32 mmol/L (22.0-30.0); Estimated Glomerular Filt Rate 99 ml/min (>60); GFR (African American) 119 ML/MIN (>60); Globulin 3.1 g/dL (1.3-3.2); Glucose 77 mg/dl (74-100); Total Protein,Serum 7.2 g/dl (6.3-8.2)
[2021-05-13 10:13] LABS: Hep A Ab, IgM Negative (Negative); Hepatitis B Core Antibody IgM Negative (Negative); Hepatitis B Surface Antigen Negative (Negative); Hepatitis C Antibody <0.1 s/co ratio (0.0-0.9)
== END ==
LOC: RAD 08:23
PROVIDERS: PCP Internal Medicine Adolescent Medicine; Visit Provider Nurse Practitioner Family
DX: R56.9 Unspecified convulsions (principal); R53.1 Weakness; R26.9 Unspecified abnormalities of gait and mobility; E87.0 Hyperosmolality and hypernatremia; R74.8 Abnormal levels of other serum enzymes
CPT/HCPCS: 36415; 70553; 80053; 80074; A9576

== ENCOUNTER → 2021-05-24 10:14 | Outpatient (CLI) | payer MEDICARE, SELFPAY ==
--- NOTE | 2021-05-24 10:20 | CT_ITS ---
FINAL REPORT TECHNIQUE: Axial images through the chest were performed by computed tomography before and after the administration of IV contrast. This study was performed with techniques to keep radiation doses as low as reasonably achievable, (ALARA). Individualized dose reduction techniques using automated exposure control or adjustment of mA and/or kV according to the patient's size were employed. CLINICAL HISTORY: WEIGHT LOSS FINDINGS: There is no axillary adenopathy. There is no hilar or mediastinal adenopathy. Mediastinal vasculature is well opacified. There is no pulmonary artery filling defect. The heart size is normal. There is no pericardial or pleural effusion. Limited images of the upper abdomen are unremarkable. The lung window images demonstrate a little bit of pleural and parenchymal scarring in the posterior right hemithorax. IMPRESSION: Mild pleural and parenchymal scarring in the posterior aspect of the upper right lower lobe. Reviewed, Interpreted and Dictated by Yair Acharya MD Transcribed by Kandace Breaux Authenticated by Yair Acharya MD on 05/24/2021 01:54:00 PM [facility]
--- NOTE | 2021-05-24 10:20 | CT_ITS ---
FINAL REPORT CLINICAL HISTORY: WEIGHT LOSS FINDINGS: The lung bases are clear. There are some small low-attenuation foci in the liver with the largest measuring up to 8 mm. These are nonspecific and probably due to benign cysts. The gallbladder is present. The spleen is unremarkable. The adrenals are normal. The pancreas is unremarkable. A benign-appearing cyst is seen in the right kidney measuring 1.5 cm in diameter. Precontrast images demonstrate tiny non obstructing stones in the renal collection systems bilaterally. A large amount of stool is seen throughout the colon. IMPRESSION: Tiny renal stones bilaterally. Renal and hepatic cysts. Large amount of stool throughout the colon. Reviewed, Interpreted and Dictated by Yair Acharya MD Transcribed by Kandace Breaux Authenticated by Yair Acharya MD on 05/24/2021 01:53:28 PM [facility]
== END ==
PROVIDERS: PCP Internal Medicine Adolescent Medicine; Visit Provider Internal Medicine Adolescent Medicine
DX: R63.4 Abnormal weight loss (principal)
CPT/HCPCS: 71270; 74178; Q9967

== ENCOUNTER 2021-07-25 12:30 | Emergency (ER) | payer MEDICARE, SELFPAY ==
[2021-07-25 12:40] VITALS: BP 127/67; PULSE 53; RESP 18; TEMP 36.7; O2SAT 98; BMI 19.4
--- NOTE | 2021-07-25 12:55 | XR_ITS ---
FINAL REPORT CLINICAL HISTORY: HIT ARM ON FENCE POST-hit arm on fence post- has laceration mid forearm and is wrapped with bandage to stop bleeding-- incidental finding on upper forearm toward elbow -- not where he is hurting or has laceration FINDINGS: AP and lateral views of the left forearm are obtained. There is no prior exam for comparison. There is no acute osseous abnormality of the left forearm. The wrist and elbow are intact. Calcifications adjacent to the radial tuberosity are likely chronic and may be related to old biceps tendon tear. There is soft tissue edema over the dorsal mid forearm. No radiopaque foreign body. IMPRESSION: No acute osseous abnormality of the left forearm. Reviewed, Interpreted and Dictated by Lisa Francois MD Transcribed by Kendrick Infante Authenticated by Lisa Francois MD on 07/25/2021 03:14:16 PM [facility]
--- NOTE | 2021-07-25 12:59 | HMH.EDUTC ---
[facility] [place] Disposition Clinical Impression: Laceration Disposition: Home, Self-Care Condition on Discharge: Good Instructions: Laceration Repair, DI for Laceration Repair -- Simple Additional Instructions: Suture instructions: You have required stitches today. Please read the following instructions so you know how to care for them: 1. Keep wound area dry for the first 24 hours. 2 May clean gently with mild soap and water, after 48 hours to prevent crusting over suture knots. 3. You may shower if your provider gives permission but do not take a bath until the skin is healed.. 4. Never leave a wet dressing or Band-Aid on your stitches as this allows bacteria to reach the area and may cause infection. Band-aids can cause the wound to sweat and not recommended to wear for long periods of time Watch for signs of infection: Increasing redness, tenderness or warmth around the suture site Unusual swelling around the site Appearance of pus around each suture or any red streaks Fever If you develop any of the above signs or symptoms of infection, Follow up with Family Physician immediately 5. Suture removal in _7-10___days 6. Return to [facility] or follow up with family doctor for removal. This can be done by any medical provider during regular hours on Sunday through Sunday, by appointment. Prescriptions: Amoxicillin/Potassium Clav [Augmentin 500mg tab] 500 mg PO TID #21 tab Transmission Status: Pending to [facility] Referrals: Ritesh Collins MD [Primary Care Provider] - As needed Time of Disposition: 16:00 Medical Decision Making - Juan J Inquiry Pt receiving controlled substance: No Juan J was queried for this patient: No Vital Signs: 07/25/21 12:40 07/25/21 13:08 Temperature 98.1 F 98.1 F Temperature Source Oral Pulse Rate 53 L Pulse Rate [Right Brachial] 53 L Respiratory Rate 18 18 Blood Pressure 127/61 Blood Pressure [Right Arm] 127/67 Blood Pressure Mean [Right Arm] 87 Blood Pressure Source [Right Arm] Automatic Cuff Blood Pressure Position [Right Arm] Sitting 02 Sat by Pulse Oximetry 98 Oxygen Delivery Method Room Air Orders (Tests/Meds): ED MEDICATIONS Discontinued Medications Generic Name Dose Route Start Last Admin Trade Name Freq PRN Reason Stop Dose Admin Tetanus/Reduced Diphtheria/Acell Pertussis 0.5 ml 07/25/21 12:59 07/25/21 13:05 Tet/Diphth/Pert-Adult 0.5ml Syringe IM 07/25/21 13:00 0.5 ml .ONCE ONE Administration - Radiology Data #1 Image(s): Forearm Image Reviewed: Yes I have reviewed radiologist's interpretation IMPRESSION: No acute osseous abnormality of the left forearm. Medical Decision Narrative: Upon viewing xray noted what appears to be calcification of radius area noted is well above laceration however will wait for official read prior to closing [facility] HPI - General Stated complaint: AO 07/25 lt arm laceration Time Seen by Provider: 07/25/21 12:59 Mode of Arrival: Ambulatory Source of Information: Patient Limitations: No Limitations Description of Symptoms (Recalled from Triage Doc. by RN): PATIENT C/O LACERATION TO LEFT FOREARM. HE REPORTS A FENCE POST HIT HIS ARM AND A NAIL ON THERE CAUSED THE LACERATION. HE IS UNSURE IF HIS TDAP IS UP TO DATE HEENT Symptoms (Recalled from RN notes): No Resp Symptoms (Recalled from RN notes): No Skin Symptoms (Recalled from RN notes): Yes MS Symptoms (Recalled from RN notes): No Functional Status (Recalled from RN notes): WNL - History of Present Illness Provider Complaint: Patient states he was working on a fence when the post fell States that the post had a nail sticking out and caught him in the left forearm causing laceration to forearm States that they applied pressure and thought they could clean it up and it be ok but after looking at thought they may need to bring him in for stitches - Related Data Home Medications Medication Instructions Recorded Confirmed Atorvastatin Calcium
[2021-07-25 13:08] VITALS: BP 127/61; PULSE 53; RESP 18; TEMP 36.7; O2SAT 98
== END 2021-07-25 16:04 | disposition home or self-care (01) ==
PROVIDERS: Emergency Provider Nurse Practitioner; PCP Internal Medicine Adolescent Medicine
DX: S51.812A Laceration without foreign body of left forearm, initial encounter (principal); Z23 Encounter for immunization; W45.0XXA Nail entering through skin, initial encounter; Y92.9 Unspecified place or not applicable; F17.210 Nicotine dependence, cigarettes, uncomplicated; I25.10 Atherosclerotic heart disease of native coronary artery without angina pectoris; E78.5 Hyperlipidemia, unspecified
CPT/HCPCS: 12001; 73090; 90471; 90715; 99213; G0463

== ENCOUNTER → 2022-01-02 09:27 | Outpatient (CLI) | payer MEDICARE, SELFPAY ==
--- NOTE | 2022-01-02 09:27 | US_ITS ---
FINAL REPORT CLINICAL HISTORY: elevated liver enzymes FINDINGS: Sonographic images of the right upper quadrant were obtained. The pancreas is partially obscured. There are a few small cysts within the liver. There are echogenic nonshadowing foci in the gallbladder which may represent tumefactive sludge, polyps or stones with poorly demonstrated shadowing. There is no evidence of biliary ductal dilatation.The common duct measures 3 mm. The right kidney measures 8.9 cm in length. There is a 1.7 cm right renal cyst. IMPRESSION: Echogenic nonshadowing foci in the gallbladder. Follow-up ultrasound may be helpful. Few small hepatic cysts. 1.7 cm right renal cyst. Reviewed, Interpreted and Dictated by Rafa Mena III, MD Transcribed by Kandace Breaux Authenticated and [facility]
== END ==
LOC: RAD 09:27
PROVIDERS: PCP Nurse Practitioner Family; Visit Provider Nurse Practitioner Family
DX: R74.8 Abnormal levels of other serum enzymes (principal)
CPT/HCPCS: 76705

== ENCOUNTER 2022-01-25 09:15 | Day surgery (SDC) | payer MEDICARE, SELFPAY ==
[2022-01-09 14:08] VITALS: BMI 19.8
[2022-01-25 09:52] VITALS: BP 133/70; PULSE 50; RESP 18; TEMP 36.1; O2SAT 99
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
[2022-01-25 10:23] VITALS: O2SAT 99
--- NOTE | 2022-01-25 10:52 | HMH.SCOPE ---
Procedure: Date: 01/25/22 Patient Date of :: 1960 Procedure Performed:: Screening colonoscopy Indications:: Screening for colorectal cancer Performing Provider:: Kyle Johnson MD Referring Provider:: Gayatri Mccarty Sedation:: Propofol Procedure:: After placing the patient in the left lateral decubitus position, the colonoscopy was gently inserted into the rectum and under direct visualization advanced to the cecum which was identified by transillumination in the right lower quadrant, identification of the ileocecal valve, appendiceal orifice, and cecal strap. Color, texture, mucosa, and anatomy of the colon were carefully examined with the scope. Findings:: Anal canal: normal Rectum: normal Sigmoid colon: normal, 2 adenomatous polyps 0.5cm in size identified and removed with snare. Descending colon: normal without polyps or inflammatory changes Splenic flexure: normal Transverse colon: normal without polyps or inflammatory changes Hepatic flexure: normal Ascending colon: normal without polyps or inflammatory changes Cecum: normal Terminal ileum: not visualized Impression: Sigmoid polyps x 2 Specimens:: Sigmoid polyps Recommendations:: Repeat examination in about THREE years or so, sooner if clinically indicated. Complications:: None Estimated blood obtained (mL): 0
[2022-01-25 10:54] VITALS: BP 86/48; PULSE 48; RESP 16; TEMP 36.1; O2SAT 98
[2022-01-25 11:04] VITALS: BP 82/46; PULSE 47; RESP 17; O2SAT 98
[2022-01-25 11:14] VITALS: BP 97/63; PULSE 46; RESP 18; O2SAT 98
[2022-01-25 11:24] VITALS: BP 106/62; PULSE 45; RESP 18; O2SAT 98
== END 2022-01-25 11:41 | disposition home or self-care (01) ==
PROVIDERS: PCP Nurse Practitioner Family; Visit Provider Internal Medicine Gastroenterology
PROC: 0DJD8ZZ Inspection of Lower Intestinal Tract, Via Natural or Artificial Opening Endoscopic (ICD-10-PCS; CPT 45378; principal; 2022-01-25 10:30)
DX: Z12.11 Encounter for screening for malignant neoplasm of colon (principal); D12.6 Benign neoplasm of colon, unspecified; Z72.0 Tobacco use; Z79.899 Other long term (current) drug therapy
CPT/HCPCS: 45385; 88305

== ENCOUNTER → 2022-12-19 12:23 | Outpatient (CLI) | payer MEDICARE, SELFPAY ==
--- NOTE | 2022-12-19 12:34 | XR_ITS ---
FINAL REPORT CLINICAL HISTORY: L 4th osteo FINDINGS: Left foot Three views were obtained. There is no acute fracture or dislocation. There are mild degenerative changes. Mild hallux valgus deformity is identified. There is no definite bony erosion to suggest osteomyelitis. No soft tissue abnormality is identified. IMPRESSION: No definite bony erosion to suggest osteomyelitis. MRI would be a more sensitive study. Reviewed, Interpreted and Dictated by Rafa Mena III, MD Transcribed by Kalee Bolden Authenticated and [facility]
--- NOTE | 2022-12-19 12:34 | XR_ITS ---
FINAL REPORT CLINICAL HISTORY: foot pain-- FINDINGS: Right foot Three views were obtained. There is no acute fracture or dislocation. The joint spaces appear normal. No soft tissue abnormality is identified. IMPRESSION: No acute process. Reviewed, Interpreted and Dictated by Rafa Mena III, MD Transcribed by Kalee Bolden Authenticated and [facility][1]
== END ==
LOC: RAD 12:25
PROVIDERS: PCP Family Medicine; Visit Provider Nurse Practitioner Family
DX: M19.90 Unspecified osteoarthritis, unspecified site (principal); M79.671 Pain in right foot; M79.672 Pain in left foot
CPT/HCPCS: 73630

== ENCOUNTER 2023-04-27 19:29 | Outpatient (CLI) | payer MEDICARE, SELFPAY ==
[2023-04-27 17:01] LABS: Basophils # 0.1 K/mm3 (0-0.2); Basophils % 0.5 % (0.1-2.0); Eosinophils # 0.2 K/mm3 (0.0-0.4); Eosinophils % 1.6 % (0.1-12.0); Hematocrit 52.7 % (42.0-52.0); Hemoglobin 16.2 g/dL (14.1-18.0); Lymphocytes % 35.7 % (10-50); Mean Corpuscular HGB Conc 30.7 g/dL (31.8-35.4); Mean Corpuscular Volume 110.7 fl (80-94); Mean Platelet Volume 13.8 fl (7.4-10.4); Monocytes # 0.5 K/mm3 (0.1-1.0); Monocytes % 4.4 % (1.7-9.3); Neutrophils # 6.5 K/mm3 (1.8-7.8); Neutrophils % 57.8 % (37.0-80.0); Platelet Count 134 K/mm3 (142-424); Red Blood Count 4.76 M/mm3 (4.60-6.20); Red Cell Distribution Width 13.6 % (11.5-17.5); White Blood Count 11.2 K/mm3 (4.8-10.8)
[2023-04-27 17:39] LABS: Alanine Aminotransferase 37 U/L (12-78); Albumin Level 4.4 g/dl (3.5-5.0); Albumin/Globulin Ratio 1.4 (1.1-1.8); Alkaline Phosphatase 166 U/L (38-126); Anion Gap 15.9 mEq/L (5-15); Aspartate Amino Transferase 40 U/L (17-59); Bilirubin,Total 1.1 mg/dl (0.2-1.3); Blood Urea Nitrogen 50 mg/dl (9-20); Carbon Dioxide 27 mmol/L (22.0-30.0); Cholesterol 161 mg/dl (140-200); Estimated Glomerular Filt Rate 41 ml/min (>60); GFR (African American) 50 ML/MIN (>60); Globulin 3.1 g/dL (1.3-3.2); Glucose 115 mg/dl (74-100); HDL Cholesterol 27 mg/dl (40-60); Potassium 3.9 mmoL/L (3.5-5.1); Total Protein,Serum 7.5 g/dl (6.3-8.2); Triglycerides 191 mg/dl (30-150); VLDL Cholesterol 38 mg/dL (0-40)
[2023-04-27 17:50] LABS: Direct LDL Cholesterol 89.97 mg/dL (100-129)
[2023-04-27 18:10] LABS: Thyroid Stimulating Hormone 1.35 uIU/mL (0.465-4.68)
[2023-04-27 18:45] LABS: Chloride 135 mmol/L (98-107); Sodium 174 mmol/L (136-145)
== END 2023-04-27 23:59 ==
LOC: LAB.DROPOF 19:30
PROVIDERS: PCP Family Medicine; Visit Provider Family Medicine
DX: G40.909 Epilepsy, unspecified, not intractable, without status epilepticus (principal); E78.5 Hyperlipidemia, unspecified
CPT/HCPCS: 80053; 80061; 84443; 85025

== ENCOUNTER 2023-04-27 20:46 | Inpatient (IN) | payer MEDICARE, SELFPAY ==
--- NOTE | 2023-04-27 21:11 | ECG_ITS ---
APPROVED REPORT Exam: Resting ECG HR:66 bpm ECG Measurements Heart Rate 66 AXES MS 136 P 51 QRSd 106 QRS 76 QT 435 T 7 QTc 448 Conclusion SINUS RHYTHM PROBABLE INFERIOR MYOCARDIAL INFARCTION , Old changes ABNORMAL ECG UNCONFIRMED REPORT Electronically signed by : Ritesh Collins MD 04/28/2023 12:34:15
[2023-04-27 21:19] VITALS: BP 119/80; PULSE 67; RESP 18; TEMP 36.7; O2SAT 98; BMI 17.1
[2023-04-27 21:30] VITALS: BP 121/76; PULSE 65; RESP 24; O2SAT 98
[2023-04-27 21:33] LABS: Basophils # 0.1 K/mm3 (0-0.2); Basophils % 0.4 % (0.1-2.0); Eosinophils # 0.3 K/mm3 (0.0-0.4); Eosinophils % 2.1 % (0.1-12.0); Hematocrit 51.3 % (42.0-52.0); Hemoglobin 15.7 g/dL (14.1-18.0); Lymphocytes # 4.2 K/mm3 (0.7-4.5); Lymphocytes % 33.2 % (10-50); Mean Corpuscular HGB Conc 30.6 g/dL (31.8-35.4); Mean Corpuscular Hemoglobin 33.6 pg (27.0-31.2); Mean Corpuscular Volume 109.8 fl (80-94); Monocytes # 0.4 K/mm3 (0.1-1.0); Monocytes % 3.5 % (1.7-9.3); Neutrophils # 7.7 K/mm3 (1.8-7.8); Neutrophils % 60.9 % (37.0-80.0); Platelet Count 126 K/mm3 (142-424); Red Blood Count 4.67 M/mm3 (4.60-6.20); Red Cell Distribution Width 13.5 % (11.5-17.5); White Blood Count 12.7 K/mm3 (4.8-10.8)
[2023-04-27 21:35] LABS: Potassium 3.6 mmoL/L (3.5-5.1)
[2023-04-27 21:38] LABS: Alanine Aminotransferase 40 U/L (12-78); Albumin Level 4.1 g/dl (3.5-5.0); Albumin/Globulin Ratio 1.2 (1.1-1.8); Alkaline Phosphatase 148 U/L (38-126); Anion Gap 7.6 mEq/L (5-15); Aspartate Amino Transferase 44 U/L (17-59); Bilirubin,Total 0.8 mg/dl (0.2-1.3); Blood Urea Nitrogen 53 mg/dl (9-20); Carbon Dioxide 32 mmol/L (22.0-30.0); Creatinine Clearance Estimated 36 mL/min (50-200); Estimated Glomerular Filt Rate 44 ml/min (>60); GFR (African American) 53 ML/MIN (>60); Globulin 3.4 g/dL (1.3-3.2); Total Protein,Serum 7.5 g/dl (6.3-8.2)
[2023-04-27 21:39] LABS: Calcium 9.8 mg/dl (8.4-10.2); Glucose 125 mg/dl (74-100)
[2023-04-27 21:42] LABS: Chloride 132 mmol/L (98-107); Sodium 168 mmol/L (136-145)
[2023-04-27 22:00] VITALS: BP 125/85; PULSE 60; RESP 25; O2SAT 98
[2023-04-27 22:30] VITALS: BP 123/76; PULSE 55; RESP 24; O2SAT 97
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
--- NOTE | 2023-04-27 22:52 | PC.NURSE ---
Spoke with MD Velasquez @[phone] regarding fluids for pt. States they will put order in for fluids. Report called to Nicholas Arcos RN on 2nd floor at this time. States hospitalist has put fluid order in.
[2023-04-27 22:54] VITALS: BP 123/76; PULSE 52; RESP 24; TEMP 36.8; O2SAT 98
--- NOTE | 2023-04-27 23:15 | PC.NURSE ---
pt arrived to floor at this time
[2023-04-27] MEDS: DEXTROSE 5 % IN WATER 1,000 ML 75 ML IV (23:22)
[2023-04-28] VITALS: BP 103/75; PULSE 50; PULSE 60; RESP 18; TEMP 36.4; O2SAT 97; BMI 17.9
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
[2023-04-28 03:26] LABS: Potassium 3.4 mmoL/L (3.5-5.1)
[2023-04-28 03:28] LABS: Alanine Aminotransferase 36 U/L (12-78); Blood Urea Nitrogen 50 mg/dl (9-20); Creatinine Clearance Estimated 46 mL/min (50-200); Estimated Glomerular Filt Rate 56 ml/min (>60); GFR (African American) 68 ML/MIN (>60)
[2023-04-28 03:29] LABS: Albumin Level 3.7 g/dl (3.5-5.0); Albumin/Globulin Ratio 1.2 (1.1-1.8); Alkaline Phosphatase 132 U/L (38-126); Anion Gap 7.4 mEq/L (5-15); Aspartate Amino Transferase 37 U/L (17-59); Bilirubin,Total 0.7 mg/dl (0.2-1.3); Calcium 9.3 mg/dl (8.4-10.2); Carbon Dioxide 30 mmol/L (22.0-30.0); Globulin 3.1 g/dL (1.3-3.2); Glucose 139 mg/dl (74-100); Total Protein,Serum 6.8 g/dl (6.3-8.2)
[2023-04-28 03:30] LABS: Chloride 132 mmol/L (98-107); Sodium 166 mmol/L (136-145)
[2023-04-28 04:00] VITALS: BP 115/61; PULSE 40; PULSE 46; RESP 18; TEMP 36.4; O2SAT 97; BMI 17.9
--- NOTE | 2023-04-28 05:09 | PC.NURSE ---
patient has been mary t/o night 50's/40's, asymptomatic.
[2023-04-28] MEDS: D5W/0.45% NaCl w/20mEq KCL 1,000 ML 75 ML IV (06:43)
[2023-04-28 06:56] LABS: POC Glucose,Bedside 121 (70-110)
[2023-04-28 08:00] VITALS: BP 106/69; PULSE 39; PULSE 50; PULSE 60; RESP 17; TEMP 36.9; O2SAT 99
--- NOTE | 2023-04-28 08:10 | EXP.ACUTE.PN ---
Subjective *Date: 04/28/23 *Time: 14:03 Interval history: Denies any chest pain or shortness of breath. Complains of weakness. Slow to respond. Mild confusion. No nausea or vomiting. Tolerating p.o. intake. Afebrile. No tremor or seizure like activity since admission. Medical Exam Vital signs and Labs for Last 24 Hours: Vital Signs Temp Pulse Pulse Resp BP BP Pulse Ox 04/28/23 04:00 40 L 04/28/23 00:00 50 L 04/28/23 04:00 97.6 F 46 L 18 115/61 97 04/28/23 06:26 04/28/23 03:00 04/28/23 00:00 97.5 F L 60 18 103/75 L 97 04/28/23 01:00 04/27/23 22:30 55 L 24 123/76 97 04/27/23 22:00 60 25 H 125/85 98 04/27/23 21:30 65 24 121/76 98 04/27/23 22:54 98.2 F 52 L 24 123/76 04/27/23 21:19 98.1 F 67 18 119/80 98 O2 Del Method 04/28/23 04:00 04/28/23 00:00 04/28/23 04:00 Room Air 04/28/23 06:26 Room Air 04/28/23 03:00 Room Air 04/28/23 00:00 Room Air 04/28/23 01:00 Room Air 04/27/23 22:30 04/27/23 22:00 04/27/23 21:30 04/27/23 22:54 Room Air 04/27/23 21:19 Room Air Intake and Output 04/27/23 04/28/23 04/28/23 23:59 07:59 15:59 Intake Total 60 / 60 Output Total 500 / 500 Balance -440 / -440 Intake: Intake, Oral Amount 60 / 60 Output: Output, Urine Amount 500 / 500 Other: Weight 52.617 kg 55.026 kg Patient Weight 04/28/23 23:59 Weight 55.026 kg Laboratory Results - last 24 hr 04/27/23 21:15: WBC 12.7 H, RBC 4.67, Hgb 15.7, Hct 51.3, MCV 109.8 H, MCH 33.6 H, MCHC 30.6 L, RDW 13.5, Plt Count 126 L, MPV 11.0 H, Neut % (Auto) 60.9, Lymph % (Auto) 33.2, [place] % (Auto) 3.5, Eos % (Auto) 2.1, Baso % (Auto) 0.4, Neut # (Auto) 7.7, Lymph # (Auto) 4.2, [place] # (Auto) 0.4, Eos # (Auto) 0.3, Baso # (Auto) 0.1, Sodium 168 H*, Potassium 3.6, Chloride 132 H, Carbon Dioxide 32 H, Anion Gap 7.6, BUN 53 H, Creatinine 1.60 H, Estimated Creat Clear 36, Estimated GFR 44 L, Est GFR ( Amer) 53 L, Glucose 125 H, Calcium 9.8, Total Bilirubin 0.8, AST 44, ALT 40, Alkaline Phosphatase 148 H, Total Protein 7.5, Albumin 4.1, Globulin 3.4 H, Albumin/Globulin Ratio 1.2 04/28/23 03:00: Sodium 166 H*, Potassium 3.4 L, Chloride 132 H, Carbon Dioxide 30, Anion Gap 7.4, BUN 50 H, Creatinine 1.30 H, Estimated Creat Clear 46, Estimated GFR 56 L, Est GFR ( Amer) 68 D, Glucose 139 H, Calcium 9.3, Total Bilirubin 0.7, AST 37, ALT 36, Alkaline Phosphatase 132 H, Total Protein 6.8, Albumin 3.7, Globulin 3.1, Albumin/Globulin Ratio 1.2 04/28/23 06:44: POC Glucose 121 H I & O for Labs for Last 24 Hours: Intake & Output 04/25/23 04/26/23 04/27/23 04/28/23 23:59 23:59 23:59 23:59 Intake Total 60 / 60 Output Total 500 / 500 Balance -440 / -440 Weight 52.617 kg 55.026 kg Constitutional: Present no acute distress, cachectic, chronically ill appearing and cooperative Head: Present atraumatic and normocephalic ENT: Present normal exam Neck: Present normal inspection Respiratory: Present normal respiratory effort; Absent rhonchi, wheezes or crackles Cardiac: Present Reg Rate and Rhythm GI: Present normal bowel sounds; Absent tenderness Extremities: Present normal inspection and full ROM Skin: Present intact; Absent erythema Neuro: Present Grossly Intact, alert, awake and moves all extremities Comment:: Patient slow to respond, complains of feeling weak. Assessment and Plan *Assessment and plan (1) Hypernatremia: Status: Acute Category: Medical Code(s): E87.0 - Hyperosmolality and hypernatremia (2) Weakness: Status: Acute Category: Medical Code(s): R53.1 - Weakness (3) LORETTA (acute kidney injury): Status: Acute Category: Medical Code(s): N17.9 - Acute kidney failure, unspecified (4) History of traumatic brain injury: Status: Chronic Category: Medical Code(s): Z87.820 - Personal history of traumatic brain injury (5) Cognitive impairment: Status: Chronic Category: Medical Code(s): R41.89 - Other symptoms and signs involving cognitive functions and awareness (6) History of coronary atherosclerosis: Status: Chronic Category: Medical Code(s): Z86.79 - Personal history of other diseases of the circulatory system Plan 63-year-old male with PMHx of moderate hyponatremia, traumatic brain injury, seizure, presented to the emergency department after being requested by PCP office for worsening hypernatremia. Today patient had routine labs done at his doctor's office and his PCP advised him to come to the emergency department due to hyponatremia to 174. On arrival patient is asymptomatic. Denying diarrhea or vomiting. Family members reported he has been shaking. Chemistry showed severe hypernatremia of 168. creatinine above his baseline at 1.7. Responding to fluid hydration with D5 half-normal. Appropriate correction of sodium at this time. Continues to require inpatient management for high risk of decompensation and risk of over correcting sodium with potential for cerebral edema. Problems addressed as follows: -Acute on chronic hypernatremia, likely secondary to water depletion, dehydration Patient with history of traumatic brain disease, suspect hypodipsia, Cognitive impairment: LORETTA: Continuing D5 half-normal with 20 of K. Increased rate to 100 cc an hour. Sodium correcting slowly but appropriately. Monitoring sodium every 6 hours, correct at rate of no more than 8 mEq/day. Sodium this morning 165, repeat at noon of 164. Potassium low at 3.2. Will replace orally with potassium chloride 40 mEq x 1 Encouraged p.o. free water intake. strict in and out. Continue Keppra and vitamin B1 -CAD. On aspirin and statin. Resumed Lovenox for DVT prophylaxis On Protonix for GERD Full code
[2023-04-28 08:17] LABS: Potassium 3.2 mmoL/L (3.5-5.1)
[2023-04-28 08:19] LABS: Alanine Aminotransferase 36 U/L (12-78); Blood Urea Nitrogen 48 mg/dl (9-20); Creatinine Clearance Estimated 46 mL/min (50-200); Estimated Glomerular Filt Rate 56 ml/min (>60); GFR (African American) 68 ML/MIN (>60)
[2023-04-28 08:20] LABS: Albumin Level 3.8 g/dl (3.5-5.0); Albumin/Globulin Ratio 1.2 (1.1-1.8); Alkaline Phosphatase 134 U/L (38-126); Anion Gap 6.2 mEq/L (5-15); Aspartate Amino Transferase 38 U/L (17-59); Bilirubin,Total 0.7 mg/dl (0.2-1.3); Calcium 9.1 mg/dl (8.4-10.2); Carbon Dioxide 33 mmol/L (22.0-30.0); Globulin 3.1 g/dL (1.3-3.2); Glucose 126 mg/dl (74-100); Total Protein,Serum 6.9 g/dl (6.3-8.2)
[2023-04-28 08:25] LABS: Chloride 129 mmol/L (98-107); Sodium 165 mmol/L (136-145)
[2023-04-28] MEDS: ASPIRIN EC 81MG TABLET 81 MG PO (08:32)
[2023-04-28] MEDS: levETIRAcetam 500 MG TABLET PO ×2 (08:32→20:13)
[2023-04-28] MEDS: ATORVASTATIN 20MG TABLET 20 MG PO (08:32)
[2023-04-28] MEDS: PANTOPRAZOLE 40MG TABLET 40 MG PO (08:32)
[2023-04-28 08:37] LABS: Basophils % 0.2 % (0.1-2.0); Eosinophils # 0.3 K/mm3 (0.0-0.4); Eosinophils % 3.2 % (0.1-12.0); Hematocrit 48.5 % (42.0-52.0); Lymphocytes # 3.3 K/mm3 (0.7-4.5); Lymphocytes % 34.2 % (10-50); Mean Corpuscular HGB Conc 30.9 g/dL (31.8-35.4); Mean Corpuscular Volume 110.1 fl (80-94); Mean Platelet Volume 11.4 fl (7.4-10.4); Monocytes # 0.4 K/mm3 (0.1-1.0); Monocytes % 3.6 % (1.7-9.3); Neutrophils # 5.7 K/mm3 (1.8-7.8); Neutrophils % 58.6 % (37.0-80.0); Platelet Count 117 K/mm3 (142-424); Red Blood Count 4.41 M/mm3 (4.60-6.20); Red Cell Distribution Width 13.7 % (11.5-17.5); White Blood Count 9.8 K/mm3 (4.8-10.8)
[2023-04-28 12:00] VITALS: BP 114/66; PULSE 48; PULSE 50; RESP 19; TEMP 36.7; O2SAT 98
[2023-04-28 12:05] LABS: POC Glucose,Bedside 148 (70-110)
[2023-04-28 13:14] LABS: Alanine Aminotransferase 39 U/L (12-78); Albumin Level 3.9 g/dl (3.5-5.0); Albumin/Globulin Ratio 1.3 (1.1-1.8); Alkaline Phosphatase 132 U/L (38-126); Anion Gap 7.7 mEq/L (5-15); Aspartate Amino Transferase 38 U/L (17-59); Bilirubin,Total 0.8 mg/dl (0.2-1.3); Blood Urea Nitrogen 45 mg/dl (9-20); Calcium 9.3 mg/dl (8.4-10.2); Carbon Dioxide 36 mmol/L (22.0-30.0); Chloride 124 mmol/L (98-107); Creatinine Clearance Estimated 50 mL/min (50-200); Estimated Glomerular Filt Rate 61 ml/min (>60); GFR (African American) 74 ML/MIN (>60); Glucose 102 mg/dl (74-100); Potassium 3.7 mmoL/L (3.5-5.1); Total Protein,Serum 6.9 g/dl (6.3-8.2)
[2023-04-28 13:17] LABS: Sodium 164 mmol/L (136-145)
--- NOTE | 2023-04-28 13:36 | HMH.PHAINT1 ---
Pharmacy Intervention Comments: MEDICATION RECONCILIATION COMPLETED ON PATIENT USING EXTERNAL FILL HISTORY FROM PHARMACY AND LIST FROM PCP OFFICE. -MARCELA BLOOM, [place]
[2023-04-28] MEDS: POTASSIUM CHLORIDE 20MEQ TAB 40 MEQ PO (14:33)
[2023-04-28 16:00] VITALS: BP 109/61; PULSE 40; PULSE 44; RESP 16; TEMP 36.9; O2SAT 96
[2023-04-28] MEDS: D5W/0.45% NaCl w/20mEq KCL 1,000 ML 100 ML IV (17:09)
[2023-04-28 17:19] LABS: POC Glucose,Bedside 110 (70-110)
--- NOTE | 2023-04-28 18:11 | PC.NURSE ---
ASYMPTOMATIC BRADYCARDIA NOTED ON TELE. NO COMPLAINTS T/O SHIFT. TOLERATING ROOM AIR WELL.
[2023-04-28 18:49] LABS: Chloride 122 mmol/L (98-107); Potassium 5.6 mmoL/L (3.5-5.1)
[2023-04-28 18:52] LABS: Anion Gap 7.6 mEq/L (5-15); Blood Urea Nitrogen 41 mg/dl (9-20); Calcium 8.6 mg/dl (8.4-10.2); Carbon Dioxide 31 mmol/L (22.0-30.0); Creatinine Clearance Estimated 60 mL/min (50-200); Estimated Glomerular Filt Rate 76 ml/min (>60); GFR (African American) 92 ML/MIN (>60); Glucose 115 mg/dl (74-100)
[2023-04-28 19:04] LABS: Sodium 155 mmol/L (136-145)
--- NOTE | 2023-04-28 19:31 | PC.NURSE ---
Sushma from lab called and reported critical lab: sodium 155, reported to Dr. Saini at 1904, Dr Saini ordered to D/C fluids at this time
[2023-04-28 20:00] VITALS: BP 125/67; PULSE 40; PULSE 41; RESP 16; TEMP 36.4; O2SAT 100
[2023-04-28 20:20] LABS: POC Glucose,Bedside 98 (70-110)
[2023-04-29] VITALS: BP 104/57; PULSE 40; PULSE 48; RESP 16; TEMP 36.5; O2SAT 99
[2023-04-29 01:19] LABS: Anion Gap 7.9 mEq/L (5-15); Blood Urea Nitrogen 35 mg/dl (9-20); Calcium 8.7 mg/dl (8.4-10.2); Carbon Dioxide 33 mmol/L (22.0-30.0); Chloride 119 mmol/L (98-107); Creatinine Clearance Estimated 60 mL/min (50-200); Estimated Glomerular Filt Rate 76 ml/min (>60); GFR (African American) 92 ML/MIN (>60); Glucose 92 mg/dl (74-100); Potassium 3.9 mmoL/L (3.5-5.1)
[2023-04-29 01:21] LABS: Sodium 156 mmol/L (136-145)
--- NOTE | 2023-04-29 02:56 | PC.NURSE ---
Pt HR as low as 36, Pt sleeping, asked pt to reposition, contacted Ayden Bergeron APRN to make aware, no new orders at this time
--- NOTE | 2023-04-29 03:43 | PC.NURSE ---
Pt is alert and oriented x4 and currently tolerating RA well. Pt is extremely pleasant and grateful. Pt HR remains abnormally low, Ayden Bergeron APRN aware, Lab reported a critical sodium level of 156, also reported to Ayden. Pt has no complaints and has voided x2 this shift. Pt denies needs and pain at this time.
[2023-04-29 04:00] VITALS: BP 103/65; PULSE 40; PULSE 47; RESP 16; TEMP 36.3; O2SAT 97; BMI 18.3
[2023-04-29 05:21] LABS: POC Glucose,Bedside 88 (70-110)
[2023-04-29 07:44] LABS: Basophils % 0.4 % (0.1-2.0); Eosinophils # 0.3 K/mm3 (0.0-0.4); Eosinophils % 2.6 % (0.1-12.0); Hematocrit 43.5 % (42.0-52.0); Hemoglobin 13.9 g/dL (14.1-18.0); Lymphocytes # 2.8 K/mm3 (0.7-4.5); Lymphocytes % 29.2 % (10-50); Mean Corpuscular HGB Conc 31.9 g/dL (31.8-35.4); Mean Corpuscular Hemoglobin 34.2 pg (27.0-31.2); Mean Corpuscular Volume 107.1 fl (80-94); Mean Platelet Volume 11.3 fl (7.4-10.4); Monocytes # 0.3 K/mm3 (0.1-1.0); Monocytes % 3.4 % (1.7-9.3); Neutrophils # 6.1 K/mm3 (1.8-7.8); Neutrophils % 64.4 % (37.0-80.0); Platelet Count 99 K/mm3 (142-424); Red Blood Count 4.06 M/mm3 (4.60-6.20); Red Cell Distribution Width 13.5 % (11.5-17.5); White Blood Count 9.5 K/mm3 (4.8-10.8)
[2023-04-29 08:00] VITALS: BP 108/53; PULSE 30; PULSE 49; RESP 16; TEMP 36.7; O2SAT 100
[2023-04-29] MEDS: PANTOPRAZOLE 40MG TABLET 40 MG PO (08:03)
[2023-04-29] MEDS: levETIRAcetam 500 MG TABLET PO ×2 (08:03→20:38)
[2023-04-29] MEDS: ATORVASTATIN 20MG TABLET 20 MG PO (08:03)
[2023-04-29] MEDS: ASPIRIN EC 81MG TABLET 81 MG PO (08:03)
[2023-04-29 08:10] LABS: Chloride 123 mmol/L (98-107); Potassium 3.6 mmoL/L (3.5-5.1)
[2023-04-29 08:13] LABS: Anion Gap 2.6 mEq/L (5-15); Blood Urea Nitrogen 35 mg/dl (9-20); Calcium 8.3 mg/dl (8.4-10.2); Carbon Dioxide 32 mmol/L (22.0-30.0); Creatinine Clearance Estimated 61 mL/min (50-200); Estimated Glomerular Filt Rate 76 ml/min (>60); GFR (African American) 92 ML/MIN (>60); Glucose 95 mg/dl (74-100)
[2023-04-29 08:16] LABS: Sodium 154 mmol/L (136-145)
[2023-04-29] MEDS: ONDANSETRON 4MG/2ML VIAL 4 MG IV (08:40)
--- NOTE | 2023-04-29 08:47 | P.PN_ITS ---
Subjective *Date: 04/29/23 *Time: 10:36 Interval history: Feeling some better today, not quite as tired. Alert and oriented to person and place. No nausea or vomiting. No chest pain or shortness of breath. Tolerating p.o. intake. Drinking an adequate amount. Medical Exam Vital signs and Labs for Last 24 Hours: Vital Signs Temp Pulse Pulse Resp BP Pulse Ox O2 Del Method 04/29/23 04:00 97.3 F L 47 L 16 103/65 L 97 Room Air 04/29/23 04:00 40 L 04/29/23 05:00 Room Air 04/29/23 03:00 Room Air 04/29/23 00:00 40 L 04/28/23 20:00 40 L 04/29/23 00:00 97.7 F 48 L 16 104/57 L 99 Room Air 04/29/23 01:00 Room Air 04/28/23 23:00 Room Air 04/28/23 20:00 97.6 F 41 L 16 125/67 100 Room Air 04/28/23 21:00 Room Air 04/28/23 20:00 Room Air 04/28/23 19:00 Room Air 04/28/23 16:00 40 L 04/28/23 16:00 98.4 F 44 L 16 109/61 L 96 Room Air 04/28/23 16:44 Room Air 04/28/23 15:00 Room Air 04/28/23 12:00 50 L 04/28/23 12:54 Room Air 04/28/23 11:00 Room Air 04/28/23 12:00 98.1 F 48 L 19 114/66 98 Room Air 04/28/23 09:00 Room Air Intake and Output 04/28/23 04/29/23 04/29/23 23:59 07:59 15:59 Intake Total 1913 / 2993 240 / 240 Output Total 0 / 850 300 / 300 Balance 1912 / 3 -60 / -60 Intake: Intake, Oral Amount 420 / 1500 240 / 240 Infusion Intake 1493 / 1493 D5W/0.45% NaCl w/20mEq KCL 1, 1493 / 1493 000 ml @ 100 mls/hr IV .Q10H [facility] Rx#:[id number] Output: Output, Urine Amount 0 / 850 300 / 300 Other: Number of Unmeasured Voids 1 0 Weight 56.331 kg Patient Weight 04/29/23 23:59 Weight 56.331 kg Laboratory Results - last 24 hr 04/28/23 07:05: WBC 9.8, RBC 4.41 L, Hgb 15.0, Hct 48.5, MCV 110.1 H, MCH 34.0 H , MCHC 30.9 L, RDW 13.7, Plt Count 117 L, MPV 11.4 H, Neut % (Auto) 58.6, Lymph % (Auto) 34.2, [place] % (Auto) 3.6, Eos % (Auto) 3.2, Baso % (Auto) 0.2, Neut # (Auto) 5.7, Lymph # (Auto) 3.3, [place] # (Auto) 0.4, Eos # (Auto) 0.3, Baso # (Auto) 0.0 04/28/23 11:54: POC Glucose 148 H 04/28/23 12:48: Sodium 164 H*, Potassium 3.7, Chloride 124 H, Carbon Dioxide 36 H, Anion Gap 7.7, BUN 45 H, Creatinine 1.20, Estimated Creat Clear 50, Estimated GFR 61, Est GFR ( Amer) 74, Glucose 102 H, Calcium 9.3, Total Bilirubin 0.8, AST 38, ALT 39, Alkaline Phosphatase 132 H, Total Protein 6.9, Albumin 3.9, Globulin 3.0, Albumin/Globulin Ratio 1.3 04/28/23 17:05: POC Glucose 110 04/28/23 18:10: Sodium 155 H*, Potassium 5.6 H D, Chloride 122 H, Carbon Dioxide 31 H, Anion Gap 7.6, BUN 41 H, Creatinine 1.00, Estimated Creat Clear 60, Estimated GFR 76, Est GFR ( Amer) 92 D, Glucose 115 H, Calcium 8.6 04/28/23 20:13: POC Glucose 98 04/29/23 01:00: Sodium 156 H*, Potassium 3.9 D, Chloride 119 H, Carbon Dioxide 33 H, Anion Gap 7.9, BUN 35 H, Creatinine 1.00, Estimated Creat Clear 60, Chloe mated GFR 76, Est GFR ( Amer) 92, Glucose 92, Calcium 8.7 04/29/23 05:14: POC Glucose 88 04/29/23 06:30: WBC 9.5, RBC 4.06 L, Hgb 13.9 L, Hct 43.5, MCV 107.1 H, MCH 34.2 H, MCHC 31.9, RDW 13.5, Plt Count 99 L, MPV 11.3 H, Neut % (Auto) 64.4, Lymph % (Auto) 29.2, [place] % (Auto) 3.4, Eos % (Auto) 2.6, Baso % (Auto) 0.4, Neut # (Auto) 6.1, Lymph # (Auto) 2.8, [place] # (Auto) 0.3, Eos # (Auto) 0.3, Baso # (Auto) 0.0, Sodium 154 H*, Potassium 3.6, Chloride 123 H, Carbon Dioxide 32 H, Anion Gap 2.6 L, BUN 35 H, Creatinine 1.00, Estimated Creat Clear 61, Estimated GFR 76, Est GFR ( Amer) 92, Glucose 95, Calcium 8.3 L, Magnesium 2.0 I & O for Labs for Last 24 Hours: Intake & Output 04/26/23 04/27/23 04/28/23 04/29/23 23:59 23:59 23:59 23:59 Intake Total 2753 / 2993 240 / 240 Output Total 750 / 850 300 / 300 Balance 2002 - Weight 52.617 kg 55.026 kg 56.331 kg Constitutional: Present no acute distress, cachectic, chronically ill appearing and cooperative Head: Present atraumatic and normocephalic ENT: Present normal exam Neck: Present normal inspection Respiratory: Present normal respiratory effort; Absent rhonchi, wheezes or crackles Cardiac: Present Reg Rate and Rhythm GI: Present normal bowel sounds; Absent tenderness Extremities: Present normal inspection and full ROM Skin: Present intact; Absent erythema Neuro: Present Grossly Intact, alert, awake and moves all extremities Assessment and Plan *Assessment and plan (1) Hypernatremia: Status: Acute Category: Medical Code(s): E87.0 - Hyperosmolality and hypernatremia (2) Weakness: Status: Acute Category: Medical Code(s): R53.1 - Weakness (3) [place] (acute kidney injury): Status: Acute Category: Medical Code(s): N17.9 - Acute kidney failure, unspecified (4) History of traumatic brain injury: Status: Chronic Category: Medical Code(s): Z87.820 - Personal history of traumatic brain injury (5) Cognitive impairment: Status: Chronic Category: Medical Code(s): R41.89 - Other symptoms and signs involving cognitive functions and awareness (6) History of coronary atherosclerosis: Status: Chronic Category: Medical Code(s): Z86.79 - Personal history of other diseases of the circulatory system Plan 63-year-old male with PMHx of moderate hyponatremia, traumatic brain injury, seizure, presented to the emergency department after being requested by PCP office for worsening hypernatremia. Today patient had routine labs done at his doctor's office and his PCP advised him to come to the emergency department due to hyponatremia to 174. On arrival patient is asymptomatic. Denying diarrhea or vomiting. Family members reported he has been shaking. Chemistry showed severe hypernatremia of 168. creatinine above his baseline at 1.7. Is responded well to IV and p.o. hydration. Sodium correcting but still elevated. Continues to necessitate inpatient management. Problems addressed as follows: -Acute on chronic hypernatremia, likely secondary to water depletion, dehydration Patient with history of traumatic brain disease, suspect hypodipsia, Cognitive impairment: [place]: - Held D5 half-normal yesterday afternoon to significant decrease in sodium to 155. This morning he was 154. Will resume D5 half-normal with 20 mEq of potassium. Continue at 75 cc an hour. -Repeat sodium every 8 hours, goal correction 8 to 10 mEq a day. -Sodium 154, potassium 3.6, chloride 123. Kidney function normalized with creatinine 1.0, BUN 35. -Repeat CBC, CMP, magnesium for the morning. Monitoring BMP every 8 hours while correcting sodium. Goal sodium approximately 145. -Encourage p.o. fluid intake -Strict I's and O's -Replacing potassium 40 mEq bid orally along with maintenance fluids. - Continue Keppra and vitamin B1 Bradycardia: Asymptomatic sinus bradycardia. No chest pain or discomfort. Given stability since admission, will discontinue telemetry -CAD. On aspirin and statin. Resumed Lovenox for DVT prophylaxis On Protonix for GERD Full code
[2023-04-29] MEDS: D5W/0.45% NaCl w/20mEq KCL 1,000 ML 75 ML IV (09:54)
[2023-04-29] MEDS: POTASSIUM CHLORIDE 20MEQ TAB 40 MEQ PO ×2 (10:08→20:38)
[2023-04-29 11:46] LABS: POC Glucose,Bedside 104 (70-110)
[2023-04-29 12:00] VITALS: BP 143/58; PULSE 40; RESP 16; TEMP 36.4; O2SAT 100
[2023-04-29 14:19] LABS: Chloride 121 mmol/L (98-107)
[2023-04-29 14:20] LABS: Potassium 4.2 mmoL/L (3.5-5.1)
[2023-04-29 14:23] LABS: Anion Gap 5.2 mEq/L (5-15); Blood Urea Nitrogen 29 mg/dl (9-20); Carbon Dioxide 29 mmol/L (22.0-30.0); Creatinine Clearance Estimated 61 mL/min (50-200); Estimated Glomerular Filt Rate 86 ml/min (>60); GFR (African American) 103 ML/MIN (>60); Glucose 156 mg/dl (74-100)
[2023-04-29 15:17] LABS: Sodium 151 mmol/L (136-145)
[2023-04-29 16:00] VITALS: BP 136/76; PULSE 43; RESP 17; TEMP 36.5; O2SAT 100
[2023-04-29 17:23] LABS: POC Glucose,Bedside 89 (70-110)
--- NOTE | 2023-04-29 18:06 | PC.NURSE ---
PT REMAINS ROSE ON TELE. HAS AMBULATED TO BATHROOM WITH ASSISTANCE THIS SHIFT. ONE EPISODE OF N/V THIS MORNING BUT OTHERWISE TOLERATING PO INTAKE WELL. FSBS REMAIN WNL. NOT REQUIRING O2 SUPPORT.
[2023-04-29 20:00] VITALS: BP 94/46; PULSE 45; RESP 18; TEMP 36.4; O2SAT 96
[2023-04-29 20:32] LABS: POC Glucose,Bedside 103 (70-110)
[2023-04-29 22:49] LABS: Anion Gap 8.2 mEq/L (5-15); Blood Urea Nitrogen 24 mg/dl (9-20); Calcium 7.7 mg/dl (8.4-10.2); Carbon Dioxide 24 mmol/L (22.0-30.0); Chloride 117 mmol/L (98-107); Creatinine Clearance Estimated 61 mL/min (50-200); Estimated Glomerular Filt Rate 86 ml/min (>60); GFR (African American) 103 ML/MIN (>60); Glucose 84 mg/dl (74-100); Potassium 4.2 mmoL/L (3.5-5.1); Sodium 145 mmol/L (136-145)
[2023-04-30 04:00] VITALS: BP 94/41; PULSE 44; RESP 18; TEMP 36.4; O2SAT 100; BMI 19.0
--- NOTE | 2023-04-30 05:34 | PC.NURSE ---
pt. has rested well through the night, mary on , sats remain 96%-100% on RA, no complaints have been voiced at this time, call button is within reach
[2023-04-30 06:47] LABS: Basophils % 0.3 % (0.1-2.0); Eosinophils # 0.2 K/mm3 (0.0-0.4); Hematocrit 41.1 % (42.0-52.0); Hemoglobin 12.9 g/dL (14.1-18.0); Lymphocytes # 2.7 K/mm3 (0.7-4.5); Lymphocytes % 34.8 % (10-50); Mean Corpuscular HGB Conc 31.3 g/dL (31.8-35.4); Mean Corpuscular Hemoglobin 33.5 pg (27.0-31.2); Mean Corpuscular Volume 107.2 fl (80-94); Mean Platelet Volume 10.5 fl (7.4-10.4); Monocytes # 0.3 K/mm3 (0.1-1.0); Monocytes % 3.6 % (1.7-9.3); Neutrophils # 4.5 K/mm3 (1.8-7.8); Neutrophils % 58.4 % (37.0-80.0); Platelet Count 109 K/mm3 (142-424); Red Blood Count 3.84 M/mm3 (4.60-6.20); Red Cell Distribution Width 13.1 % (11.5-17.5); White Blood Count 7.7 K/mm3 (4.8-10.8)
[2023-04-30 06:51] LABS: Chloride 118 mmol/L (98-107); Potassium 3.8 mmoL/L (3.5-5.1); Sodium 147 mmol/L (136-145)
[2023-04-30 06:54] LABS: Alanine Aminotransferase 30 U/L (12-78); Albumin Level 2.8 g/dl (3.5-5.0); Albumin/Globulin Ratio 1.1 (1.1-1.8); Alkaline Phosphatase 122 U/L (38-126); Anion Gap 1.8 mEq/L (5-15); Aspartate Amino Transferase 36 U/L (17-59); Bilirubin,Total 0.6 mg/dl (0.2-1.3); Blood Urea Nitrogen 18 mg/dl (9-20); Calcium 7.8 mg/dl (8.4-10.2); Carbon Dioxide 31 mmol/L (22.0-30.0); Creatinine Clearance Estimated 63 mL/min (50-200); Estimated Glomerular Filt Rate 86 ml/min (>60); GFR (African American) 103 ML/MIN (>60); Globulin 2.5 g/dL (1.3-3.2); Glucose 84 mg/dl (74-100); Total Protein,Serum 5.3 g/dl (6.3-8.2)
[2023-04-30 06:55] LABS: Magnesium 1.9 mg/dl (1.6-2.3)
[2023-04-30 08:00] VITALS: BP 97/49; PULSE 45; RESP 20; TEMP 36.5; O2SAT 97
[2023-04-30] MEDS: levETIRAcetam 500 MG TABLET PO (08:01)
[2023-04-30] MEDS: PANTOPRAZOLE 40MG TABLET 40 MG PO (08:01)
[2023-04-30] MEDS: POTASSIUM CHLORIDE 20MEQ TAB 40 MEQ PO (08:01)
[2023-04-30] MEDS: ATORVASTATIN 20MG TABLET 20 MG PO (08:01)
[2023-04-30] MEDS: ASPIRIN EC 81MG TABLET 81 MG PO (08:01)
--- NOTE | 2023-04-30 08:08 | EXP.DC.SUM ---
General Admission date:: 04/27/23 Discharge date: 04/30/23 HPI HPI HPI: This is a 63-year-old male with PMHx of moderate hyponatremia, traumatic brain injury, seizure, presented to the emergency department after being requested by PCP office for worsening hypernatremia. Today patient had routine labs done at his doctor's office and his PCP advised him to come to the emergency department due to hyponatremia to 174. Family member has noted to nursing staff he has been shaking when he walks however family member is not present at the time of my evaluation. Due to patient's history of TBI he has limited memory is unable to provide further details about whether he has had changing symptoms recently. Admitted for treatment and management Hospital Course Hospital Course Hospital Course: 63-year-old male with PMHx of moderate hyponatremia, traumatic brain injury, seizure, presented to the emergency department after being requested by PCP office for worsening hypernatremia. Today patient had routine labs done at his doctor's office and his PCP advised him to come to the emergency department due to hypernatremia to 174. On arrival patient is asymptomatic. Denying diarrhea or vomiting. Family members reported he has been shaking. Chemistry showed severe hypernatremia of 168. creatinine above his baseline at 1.7. Patient responded well to gentle rehydration and gradual correction. Sodium has normalized. Stable for discharge at this time. Encouraged to drink 2 L of water or more a day to maintain adequate free water intake. Recommend close follow-up with PCP for repeat labs. Problems addressed as follows: -Acute on chronic hypernatremia, likely secondary to water depletion, dehydration Patient with history of traumatic brain disease, suspect hypodypsia, Cognitive impairment: [place]: -Sodium initially elevated 174 prior to arrival, elevated 168 on admission. Started on D5 half-normal as well as p.o. fluid intake. Showed gradual improvement of 8 to 10 mEq a day. Monitor daily, initially monitored every 6 hours for the first 48 hours with slow appropriate correction. Was able to maintain stable sodium within normal range off of IV fluids for 24 hours. On day of discharge, Sodium 147, chloride 118, BUN 18 and creatinine 0.9. Counseled patient on drinking at least 2 L of water a day to maintain free water intake and normal sodium. Concerned that he has hypodypsia due to his TBI. Continued his Keppra and B vitamins. No seizures during admission. Would benefit from repeat labs in 1 week Bradycardia: Asymptomatic sinus bradycardia. No chest pain or discomfort. Given stability since admission, initially monitored with telemetry, discontinued after 48 hours. CAD: On aspirin and statin. Exam Data for Last 24 hours Vital signs and Labs for Last 24 Hours: Temp Pulse Resp BP Pulse Ox O2 Del Method 97.5 F L 44 L 18 94/41 L 100 Room Air 04/30/23 04:00 04/30/23 04:00 04/30/23 04:00 04/30/23 04:00 04/30/23 04:00 04/30/23 06:41 Laboratory Results - last 24 hr 04/29/23 06:30: Sodium 154 H*, Potassium 3.6, Chloride 123 H, Carbon Dioxide 32 H, Anion Gap 2.6 L, BUN 35 H, Creatinine 1.00, Estimated Creat Clear 61, Estimated GFR 76, Est GFR ( Amer) 92, Glucose 95, Calcium 8.3 L 04/29/23 11:37: POC Glucose 104 04/29/23 14:06: Sodium 151 H*, Potassium 4.2, Chloride 121 H, Carbon Dioxide 29, Anion Gap 5.2, BUN 29 H, Creatinine 0.90, Estimated Creat Clear 61, Estimated GFR 86, Est GFR ( Amer) 103, Glucose 156 H D, Calcium 8.0 L 04/29/23 17:16: POC Glucose 89 04/29/23 20:21: POC Glucose 103 04/29/23 22:25: Sodium 145, Potassium 4.2, Chloride 117 H, Carbon Dioxide 24, Anion Gap 8.2, BUN 24 H, Creatinine 0.90, Estimated Creat Clear 61, Estimated GFR 86, Est GFR ( Amer) 103, Glucose 84 D, Calcium 7.7 L 04/30/23 06:17: WBC 7.7, RBC 3.84 L, Hgb 12.9 L, Hct 41.1 L, MCV 107.2 H, MCH 33.5 H, MCHC 31.3 L, RDW 13.1, Plt Count 109 L, MPV 10.5 H, Neut % (Auto) 58.4, Lymph % (Auto) 34.8, [place] % (Auto) 3.6, Eos % (Auto) 3.0, Baso % (Auto) 0.3, Neut # (Auto) 4.5, Lymph # (Auto) 2.7, [place] # (Auto) 0.3, Eos # (Auto) 0.2, Baso # (Auto) 0.0, Sodium 147 H, Potassium 3.8, Chloride 118 H, Carbon Dioxide 31 H, Anion Gap 1.8 L, BUN 18, Creatinine 0.90, Estimated Creat Clear 63, Estimated GFR 86, Est GFR ( Amer) 103, Glucose 84, Calcium 7.8 L, Magnesium 1.9, Total Bilirubin 0.6, AST 36, ALT 30, Alkaline Phosphatase 122, Total Protein 5.3 L, Albumin 2.8 L, Globulin 2.5, Albumin/Globulin Ratio 1.1 I & O for Last 24 hours: Intake & Output 04/27/23 04/28/23 04/29/23 04/30/23 23:59 23:59 23:59 23:59 Intake Total 2753 / 2993 900 / 1000 100 / 100 Output Total 750 / 850 950 / 950 1800 / 1800 Balance 2002 -50 / 50 -1700 / -1700 Weight 52.617 kg 55.026 kg 56.331 kg 58.173 kg Constitutional Constitutional: no acute distress, thin, chronically ill appearing and cooperative *Routine HEENT Exam Head: Present normocephalic Eye: Present EOMI and PERRL ENT: Present mucous membranes moist *Routine Neck Exam Neck: Present supple; Absent lymphadenopathy *Routine Respiratory Exam Respiratory: Present CTA bilaterally; Absent rhonchi, wheezes or crackles *Routine Cardiovascular Exam Cardiovascular: Present RRR and bradycardia *Routine Abdominal Exam Abdominal: Present soft and normoactive bowel sounds; Absent tenderness *Routine Rectal Exam Patient deferred: visual exam *Routine Exam Patient deferred: penile exam *Routine Extremities Exam Extremities: Absent cyanosis, clubbing or edema *Routine Skin Exam Skin: Present warm; Absent rash *Routine Neurological Exam Neurological: Present alert, oriented X3 and moving all extremities; Absent altered mental status Results Data Completed and Pending Labs on day of discharge: Labs from last 24 hours 04/30/23 04/29/23 04/29/23 06:17 22:25 20:21 WBC 7.7 RBC 3.84 L Hgb 12.9 L Hct 41.1 L MCV 107.2 H MCH 33.5 H MCHC 31.3 L RDW 13.1 Plt Count 109 L MPV 10.5 H Neut % (Auto) 58.4 Lymph % (Auto) 34.8 [place] % (Auto) 3.6 Eos % (Auto) 3.0 Baso % (Auto) 0.3 Neut # (Auto) 4.5 Lymph # (Auto) 2.7 [place] # (Auto) 0.3 Eos # (Auto) 0.2 Baso # (Auto) 0.0 Sodium 147 H 145 Potassium 3.8 4.2 Chloride 118 H 117 H Carbon Dioxide 31 H 24 Anion Gap 1.8 L 8.2 BUN 18 24 H Creatinine 0.90 0.90 Estimated Creat Clear 63 61 Estimated GFR 86 86 Est GFR ( Amer) 103 103 Glucose 84 84 D POC Glucose 103 Calcium 7.8 L 7.7 L Magnesium 1.9 Total Bilirubin 0.6 AST 36 ALT 30 Alkaline Phosphatase 122 Total Protein 5.3 L Albumin 2.8 L Globulin 2.5 Albumin/Globulin Ratio 1.1 04/29/23 04/29/23 04/29/23 17:16 14:06 11:37 WBC RBC Hgb Hct MCV MCH MCHC RDW Plt Count MPV Neut % (Auto) Lymph % (Auto) [place] % (Auto) Eos % (Auto) Baso % (Auto) Neut # (Auto) Lymph # (Auto) [place] # (Auto) Eos # (Auto) Baso # (Auto) Sodium 151 H* Potassium 4.2 Chloride 121 H Carbon Dioxide 29 Anion Gap 5.2 BUN 29 H Creatinine 0.90 Estimated Creat Clear 61 Estimated GFR 86 Est GFR ( Amer) 103 Glucose 156 H D POC Glucose 89 104 Calcium 8.0 L Magnesium Total Bilirubin AST ALT Alkaline Phosphatase Total Protein Albumin Globulin Albumin/Globulin Ratio 04/29/23 06:30 WBC RBC Hgb Hct MCV MCH MCHC RDW Plt Count MPV Neut % (Auto) Lymph % (Auto) [place] % (Auto) Eos % (Auto) Baso % (Auto) Neut # (Auto) Lymph # (Auto) [place] # (Auto) Eos # (Auto) Baso # (Auto) Sodium 154 H* Potassium 3.6 Chloride 123 H Carbon Dioxide 32 H Anion Gap 2.6 L BUN 35 H Creatinine 1.00 Estimated Creat Clear 61 Estimated GFR 76 Est GFR ( Amer) 92 Glucose 95 POC Glucose Calcium 8.3 L Magnesium Total Bilirubin AST ALT Alkaline Phosphatase Total Protein Albumin Globulin Albumin/Globulin Ratio DS: Diagnosis Discharge Diagnosis (1) Hypernatremia: Status: Acute Code(s): E87.0 - Hyperosmolality and hypernatremia (2) Weakness: Status: Acute Code(s): R53.1 - Weakness (3) [place] (acute kidney injury): Status: Resolved Code(s): N17.9 - Acute kidney failure, unspecified (4) History of traumatic brain injury: Status: Chronic Code(s): Z87.820 - Personal history of traumatic brain injury (5) Cognitive impairment: Status: Chronic Code(s): R41.89 - Other symptoms and signs involving cognitive functions and awareness (6) History of coronary atherosclerosis: Status: Chronic Code(s): Z86.79 - Personal history of other diseases of the circulatory system Meds Home Medications and Allergies Home Medications Medication Instructions Recorded Confirmed Type si-1-jom-epa-fish oil-vit D3 300 1 cap PO DAILY Supplement 12/28/21 04/28/23 History mg-1,000 mg-1,000 unit capsule (Fish Oil-Vit D3) aspirin 81 mg tablet,delayed 81 mg PO DAILY 04/27/23 04/28/23 History release vitamin B complex (B 1 tab PO DAILY Supplement 04/27/23 04/28/23 History Complex-Vitamin B12 tablet) atorvastatin 20 mg tablet 20 mg PO DAILY Cholesterol 04/28/23 04/28/23 History levetiracetam 500 mg tablet 500 mg PO BID 04/28/23 04/28/23 History omeprazole 20 mg capsule,delayed 20 mg PO DAILY Acid Reflux 04/28/23 04/28/23 History release New Prescriptions to Start Prescriptions: Allergies Allergy/AdvReac Type Severity Reaction Status Date / Time No Known Allergies Allergy Verified 04/27/23 09:46 Discharge Plan Disposition Patient Disposition: Home, Self-Care Condition: Good Discharge Order Discharge Orders: Discharge Order (Routine); Ordered 04/30/23 Ordered By: Lex Saini Follow up Plan Follow up with: Mike Shin DO [Primary Care Provider] - 05/08/23 11:00 am Prescriptions/Medication Reconciliation: Continued km-8-ege-epa-fish oil-vit D3 [Fish Oil-Vit D3] 300-1,000-1,000 mg-mg-unit capsule 1 cap PO DAILY vitamin B complex [B Complex-Vitamin B12] Tablet 1 tab PO DAILY aspirin 81 mg tablet,delayed release (DR/EC) 81 mg PO DAILY atorvastatin 20 mg tablet 20 mg PO DAILY levetiracetam 500 mg tablet 500 mg PO BID omeprazole 20 mg capsule,delayed release(DR/EC) 20 mg PO DAILY Other Ambulatory Orders: Basic Metabolic Panel (Routine) Timeframe: 3 Days Facility: [facility] - Location: Laboratory Ordered By: Lex Saini Problem Reconciliation Problems Reviewed?: Yes Patient Discharge Instructions ACTIVITY: Continue current activity DIET: continue same diet Additional Instructions: Minimum of 2 L of water intake a day, goal 2 to 3 L daily. Patient Instructions: DI for Hypernatremia, DI for Acute Kidney Injury Providers Primary Care Provider: Mike Shin Admit Provider: Lex Saini Attending Provider: Lex Saini
[2023-04-30] MEDS: VITAMIN B-12 1,000 MCG 1ML VIAL 1000 MCG IM (08:54)
--- NOTE | 2023-05-01 14:46 | CARE MANAGER ---
Spoke with patient's family regarding recent discharge. She states that he is doing well, no concerns voiced at time of call.
[2023-05-02 08:24] LABS: Osmolality, Urine 990 mOsmol/kg (.)
== END 2023-04-30 10:42 | disposition home or self-care (01) | DRG 641 ==
LOC: ER 21:17 → 2ND 22:50
PROVIDERS: Nurse Practitioner Family; Admitting Provider Internal Medicine Adolescent Medicine; Emergency Provider Emergency Medicine; PCP Internal Medicine; Visit Provider Internal Medicine Adolescent Medicine
DX: E87.0 Hyperosmolality and hypernatremia (principal); N17.9 Acute kidney failure, unspecified; Z87.820 Personal history of traumatic brain injury; R41.89 Other symptoms and signs involving cognitive functions and awareness; Z86.79 Personal history of other diseases of the circulatory system; R53.1 Weakness; G31.84 Mild cognitive impairment of uncertain or unknown etiology
CPT/HCPCS: 36415; 80048; 80053; 80061; 82962; 83735; 83935; 84443; 85025; 93005; 99285; J2405

== ENCOUNTER 2023-05-17 10:35 | Outpatient (CLI) | payer MEDICARE, SELFPAY ==
--- NOTE | 2023-05-17 10:40 | XR_ITS ---
FINAL REPORT CLINICAL HISTORY: Cough and shortness of breath COMPARISON: 04/20/2021 FINDINGS: Two views of the chest were obtained. The heart size and pulmonary vascularity are within normal limits. The mediastinum is normal. No acute pulmonary abnormality is identified. There is no pneumothorax. The bony thorax is intact. IMPRESSION: No active cardiopulmonary disease. Reviewed, Interpreted and Dictated by Rafa Mena III, MD Transcribed by Gayla Kirkland Authenticated and [facility]
[2023-05-17 11:30] LABS: Chloride 112 mmol/L (98-107); Potassium 3.9 mmoL/L (3.5-5.1); Sodium 147 mmol/L (136-145)
[2023-05-17 11:33] LABS: Anion Gap 6.9 mEq/L (5-15); Blood Urea Nitrogen 26 mg/dl (9-20); Calcium 9.2 mg/dl (8.4-10.2); Carbon Dioxide 32 mmol/L (22.0-30.0); Estimated Glomerular Filt Rate 76 ml/min (>60); GFR (African American) 92 ML/MIN (>60); Glucose 105 mg/dl (74-100)
[2023-05-17 13:19] LABS: Folate 4.53 ng/mL; Vitamin B12 > 1000 pg/mL (239-931)
[2023-05-19 10:10] LABS: Levetiracetam (Keppra) 15.4 ug/mL (10.0-40.0)
== END 2023-05-17 23:59 ==
LOC: LAB 10:36
PROVIDERS: Visit Provider Nurse Practitioner Family
DX: R05.3 Chronic cough (principal); E87.0 Hyperosmolality and hypernatremia; R56.9 Unspecified convulsions; R41.89 Other symptoms and signs involving cognitive functions and awareness; D75.89 Other specified diseases of blood and blood-forming organs; G93.40 Encephalopathy, unspecified; R29.2 Abnormal reflex; Z79.899 Other long term (current) drug therapy; R06.02 Shortness of breath; F17.210 Nicotine dependence, cigarettes, uncomplicated
CPT/HCPCS: 36415; 71046; 80048; 80177; 82607; 82746

== ENCOUNTER 2023-06-13 14:47 | Outpatient (CLI) | payer MEDICARE, SELFPAY ==
--- NOTE | 2023-06-13 14:57 | XR_ITS ---
FINAL REPORT CLINICAL HISTORY: 4th toe callus pain with walking FINDINGS: LEFT FOOT Three views of the left foot demonstrate no acute fracture or dislocation. Mild degenerative changes are seen with mild hallux valgus deformity. The visualized joint spaces are normally aligned. The soft tissues are unremarkable. IMPRESSION: No acute bony abnormality. Reviewed, Interpreted and Dictated by Rafa Mena III, MD Transcribed by Selena Sr Authenticated and . [facility]
== END 2023-06-13 23:59 ==
LOC: RAD 14:48
PROVIDERS: PCP Family Medicine; Visit Provider Nurse Practitioner
DX: L84 Corns and callosities (principal); M79.672 Pain in left foot
CPT/HCPCS: 73630

== ENCOUNTER 2023-10-01 15:16 | Outpatient (CLI) | payer MEDICARE, SELFPAY ==
[2023-10-01 18:01] LABS: Basophils % 0.3 % (0.1-2.0); Eosinophils # 0.2 K/mm3 (0.0-0.4); Eosinophils % 1.8 % (0.1-12.0); Hematocrit 47.5 % (42.0-52.0); Hemoglobin 14.9 g/dL (14.1-18.0); Lymphocytes # 2.9 K/mm3 (0.7-4.5); Lymphocytes % 28.6 % (10-50); Mean Corpuscular HGB Conc 31.4 g/dL (31.8-35.4); Mean Corpuscular Hemoglobin 33.4 pg (27.0-31.2); Mean Corpuscular Volume 106.5 fl (80-94); Mean Platelet Volume 10.9 fl (7.4-10.4); Monocytes # 0.5 K/mm3 (0.1-1.0); Monocytes % 4.8 % (1.7-9.3); Neutrophils # 6.5 K/mm3 (1.8-7.8); Neutrophils % 64.4 % (37.0-80.0); Platelet Count 137 K/mm3 (142-424); Red Blood Count 4.46 M/mm3 (4.60-6.20); Red Cell Distribution Width 14.2 % (11.5-17.5); White Blood Count 10.1 K/mm3 (4.8-10.8)
[2023-10-01 18:11] LABS: Alanine Aminotransferase 21 U/L (12-78); Albumin Level 3.8 g/dl (3.5-5.0); Albumin/Globulin Ratio 1.2 (1.1-1.8); Alkaline Phosphatase 104 U/L (38-126); Anion Gap 10.3 mEq/L (5-15); Aspartate Amino Transferase 26 U/L (17-59); Bilirubin,Total 0.6 mg/dl (0.2-1.3); Blood Urea Nitrogen 44 mg/dl (9-20); Carbon Dioxide 30 mmol/L (22.0-30.0); Chloride 123 mmol/L (98-107); Chol/HDL Ratio 4.7 (1-3.5); Cholesterol 169 mg/dl (140-200); Estimated Glomerular Filt Rate 61 ml/min (>60); GFR (African American) 74 ML/MIN (>60); Globulin 3.3 g/dL (1.3-3.2); Glucose 94 mg/dl (74-100); HDL Cholesterol 36 mg/dl (40-60); Potassium 4.3 mmoL/L (3.5-5.1); Total Protein,Serum 7.1 g/dl (6.3-8.2); Triglycerides 177 mg/dl (30-150); VLDL Cholesterol 35 mg/dL (0-40)
[2023-10-01 18:22] LABS: Sodium 159 mmol/L (136-145)
[2023-10-01 18:41] LABS: Thyroid Stimulating Hormone 2.25 uIU/mL (0.465-4.68)
== END 2023-10-01 23:59 | disposition home or self-care (01) ==
LOC: LAB.DROPOF 10-02 15:17
PROVIDERS: PCP Family Medicine; Visit Provider Family Medicine
DX: Z86.79 Personal history of other diseases of the circulatory system (principal); E78.5 Hyperlipidemia, unspecified
CPT/HCPCS: 80053; 80061; 84443; 85025

== ENCOUNTER 2023-10-01 23:05 | Inpatient (IN) | payer MEDICARE, SELFPAY ==
[2023-10-01 23:07] VITALS: BP 139/77; PULSE 48; RESP 18; TEMP 36.7; O2SAT 98; BMI 19.2
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
[2023-10-01 23:31] VITALS: BP 130/64; PULSE 46; RESP 14; O2SAT 96
[2023-10-01 23:53] LABS: Basophils # 0.1 K/mm3 (0-0.2); Eosinophils # 0.3 K/mm3 (0.0-0.4); Eosinophils % 2.5 % (0.1-12.0); Hematocrit 48.3 % (42.0-52.0); Hemoglobin 14.9 g/dL (14.1-18.0); Lymphocytes % 36.4 % (10-50); Mean Corpuscular HGB Conc 30.8 g/dL (31.8-35.4); Mean Corpuscular Volume 107.3 fl (80-94); Mean Platelet Volume 10.1 fl (7.4-10.4); Monocytes # 0.6 K/mm3 (0.1-1.0); Monocytes % 5.1 % (1.7-9.3); Neutrophils # 6.1 K/mm3 (1.8-7.8); Platelet Count 132 K/mm3 (142-424); Red Blood Count 4.51 M/mm3 (4.60-6.20); Red Cell Distribution Width 14.2 % (11.5-17.5); White Blood Count 11.1 K/mm3 (4.8-10.8)
[2023-10-01 23:57] LABS: Albumin Level 4.2 g/dl (3.5-5.0); Chloride 122 mmol/L (98-107); Potassium 3.9 mmoL/L (3.5-5.1)
[2023-10-02] VITALS (10 sets, daily range): BP systolic 94–128; BP diastolic 44–72; PULSE 40–46; RESP 16–24; TEMP 36.3–36.7; O2SAT 96–99; BMI 18.6
[2023-10-02] LABS: Alanine Aminotransferase 23 U/L (12-78); Albumin/Globulin Ratio 1.2 (1.1-1.8); Alkaline Phosphatase 84 U/L (38-126); Anion Gap 7.9 mEq/L (5-15); Aspartate Amino Transferase 35 U/L (17-59); Bilirubin,Total 0.6 mg/dl (0.2-1.3); Blood Urea Nitrogen 44 mg/dl (9-20); Calcium 9.4 mg/dl (8.4-10.2); Carbon Dioxide 33 mmol/L (22.0-30.0); Creatinine Clearance Estimated 64 mL/min (50-200); Estimated Glomerular Filt Rate 76 ml/min (>60); GFR (African American) 92 ML/MIN (>60); Globulin 3.4 g/dL (1.3-3.2); Glucose 84 mg/dl (74-100); Magnesium 2.2 mg/dl (1.6-2.3); Total Protein,Serum 7.6 g/dl (6.3-8.2)
[2023-10-02 00:14] LABS: Sodium 159 mmol/L (136-145)
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
--- NOTE | 2023-10-02 00:32 | PC.NURSE ---
Patient admitted to room 209 to hospitalist for hypernatremia; observation status.
--- NOTE | 2023-10-02 00:49 | PC.NURSE ---
Nurse to nurse report to Bárbara ORR
--- NOTE | 2023-10-02 00:57 | PC.NURSE ---
pt arrived to floor at this time
[2023-10-02] MEDS: Dex 5% in 0.45% NaCl 1,000 ML 100 ML IV (01:11)
[2023-10-02 04:27] LABS: Microscopic, Urine URINE MICROSCOPIC (MICROSCOPIC)
[2023-10-02 04:30] LABS: Appearance,Urine CLEAR (Clear); Bilirubin,Urine Negative (Negative); Blood, Urine Negative (Negative); Color,Urine YELLOW (Yellow); Glucose,Urine (UA) Negative (Negative); Ketones,Urine Negative (Negative); Leukocyte Esterase,Urine Negative (Negative); Nitrate,Urine Negative (Negative); Protein,Urine Negative (Negative); Specific Gravity, Urine 1.025 (1.005-1.030); Urobilinogen,Urine 0.2 EU/dl (0.2)
[2023-10-02 04:37] LABS: Bacteria,Urine Trace /lpf; Mucus,Urine 2+ /lpf; RBC,Urine Occasional #/hpf (0-3); WBC,Urine Occasional #/hpf (0-3)
[2023-10-02 04:44] LABS: Creatinine,Urine Random 147 mg/dL (Not Estab.)
--- NOTE | 2023-10-02 05:55 | PC.NURSE ---
Pt is A/O to person and place, baseline per family. Pt has not voiced any complaints to staff t/o shift. Urine sample sent to lab. Bed alarm on for pt safety. Call light within reach.
[2023-10-02 07:03] LABS: Alanine Aminotransferase 19 U/L (12-78); Albumin Level 3.3 g/dl (3.5-5.0); Albumin/Globulin Ratio 1.1 (1.1-1.8); Alkaline Phosphatase 84 U/L (38-126); Anion Gap 7.7 mEq/L (5-15); Aspartate Amino Transferase 30 U/L (17-59); Bilirubin,Total 0.5 mg/dl (0.2-1.3); Blood Urea Nitrogen 42 mg/dl (9-20); Calcium 9.1 mg/dl (8.4-10.2); Carbon Dioxide 26 mmol/L (22.0-30.0); Chloride 124 mmol/L (98-107); Creatinine Clearance Estimated 62 mL/min (50-200); Estimated Glomerular Filt Rate 98 ml/min (>60); GFR (African American) 119 ML/MIN (>60); Glucose 124 mg/dl (74-100); Magnesium 2.1 mg/dl (1.6-2.3); Potassium 3.7 mmoL/L (3.5-5.1); Total Protein,Serum 6.3 g/dl (6.3-8.2)
[2023-10-02 07:07] LABS: Basophils % 0.5 % (0.1-2.0); Eosinophils # 0.3 K/mm3 (0.0-0.4); Eosinophils % 3.5 % (0.1-12.0); Hematocrit 42.7 % (42.0-52.0); Hemoglobin 13.7 g/dL (14.1-18.0); Lymphocytes # 3.1 K/mm3 (0.7-4.5); Mean Corpuscular Hemoglobin 33.4 pg (27.0-31.2); Mean Corpuscular Volume 104.5 fl (80-94); Mean Platelet Volume 9.7 fl (7.4-10.4); Monocytes # 0.5 K/mm3 (0.1-1.0); Monocytes % 5.1 % (1.7-9.3); Neutrophils % 55.9 % (37.0-80.0); Platelet Count 117 K/mm3 (142-424); Red Blood Count 4.09 M/mm3 (4.60-6.20); Red Cell Distribution Width 14.1 % (11.5-17.5); White Blood Count 8.9 K/mm3 (4.8-10.8)
[2023-10-02 07:20] LABS: Sodium 154 mmol/L (136-145)
--- NOTE | 2023-10-02 07:53 | HMH.PHAINT1 ---
Pharmacy Intervention Comments: HOME MEDICATION LIST VERIFIED USING LIST FROM OUTPATIENT PHARMACY AND PT INTERVIEW
[2023-10-02] MEDS: ASPIRIN EC 81MG TABLET 81 MG PO (08:55)
[2023-10-02] MEDS: levETIRAcetam 500 MG TABLET PO ×2 (08:55→20:19)
[2023-10-02] MEDS: ENOXAPARIN 40MG/0.4ML SYRINGE 40 MG SQ (08:55)
[2023-10-02] MEDS: Dex 5% in 0.45% NaCl 1,000 ML 150 ML IV (10:58)
--- NOTE | 2023-10-02 13:40 | HMH.PTEV ---
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 Patient was admitted on 10/02/23 for hypernatremia. Patient lives at home with his father and sister, his sister works fly frame tender and they all take care of one another. Patient has a few steps to get to the porch attached to his home but he normally has no issues as they have a ramp. Patient stated he normally uses a walker or a cane to get around, and doesn 't recall any past significant falls. Subjective Subjective Patient stated that he currently is in no pain and that he is ready to get out of his bed for a little bit. Patient stated that it felt good to get up and walk around the [place]. New diagnosis of cancer in past 12 No months? Rehab PT IP Eval Objective Appearance Patient Behavior Appropriate,Cooperative Patient Orientation Person,Place,Name,Age,Birthday ,Patient Baseline Speech Pattern Appropriate,Soft-Spoken Ambulation Patient Able to Ambulate Yes Ambulation Observation IP General Gait Pattern Observation Narrow Based Gait,Decrease Stride Lngth (R),Decrease Stride Lngth (L) Ambulation Distance (feet) 250 Ambulation Assistive Device Rolling Walker Ambulation Ability Contact Guard/Hand Hold Balance Ability to Arise Able, uses arms to help Sitting Balance Leans or slides in chair Standing Balance Narrow stance w/o support Dynamic Sitting Balance Ability Good Dynamic Standing Balance Ability Good Transfers Bed Transfer Ability Contact Guard/Hand Hold, Minimal x 1 (25% assist) Sit to Stand Bed Transfer Ability Minimal x 1 (25% assist) Rehab PT IP prob,goals,plan Problems Date of Evaluation: 10/02/23 PT IP Problems Bed Mobility,Transfers,Safety Rehab Potential Rehab Potential Good Plan PT Intervention Plan Bed Mobility,Transfers,Safety PT Plan Frequency Daily Duration LOS Discharge Goals Bed Transfer Ability Independent Sit to Stand Chair Transfer Ability Independent,Supervision/Stand by Ambulation Assistive Device Rolling Walker Ambulation Distance (feet) 300 Discharge Plan PT Discharge Plan Patient is a good candidate for skilled PT at this time to address the LE weakness and unsteadiness during ambulation . Patient requires verbal cueing with correct usage of a rolling walker. He will significantly benefit from PT by address strengthening his LE and providing proper gait pattern while using an AD to improve his QOL. It is recommended that once the patient is medically stable to go home that he gets home health to further address his safety concerns. Eval Complexity Eval Charge Codes 49537 - High Complexity PHYSICIAN CERTIFICATION: I certify the specified therapy services for Rafa Driscoll JR are required, authorized, and reviewed every 30 days.
--- NOTE | 2023-10-02 13:42 | HMH.OTEV ---
OT Inpatient Evaluation Rehab OT IP Evaluation Start: 10/02/23 11:18 Freq: ONCE Status: Active Protocol: Document 10/02/23 13:32 NOY (Rec: 10/02/23 13:41 [id number] Rehab OT IP Assessment Subjective History Pt oriented x 3 on arrival. Pt agreeable to engage in therapy evaluation. Pt admitted on 10/02/23 due to hypernatremia. 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 Patient is pleasant, but a poor historian. He was admitted here in April for severe hypernatremia as well. On routine labs today with PCP he was noted to have a sodium of 159. On discussion with patient and family, they report no significant recent changes in the patient's status. He takes Keppra for his seizures and has been taking them as prescribed. He does not drink a lot and they are worried he could be dehydrated. admitted for further management Subjective I live with my dad. Pt reports prior to being in the hospital, he lived at home with his father and sister. Pt claims normally he completes all ADLs independently (dressing, bathing, and feeding). Pt also claims he is able to complete simple IADLs independently. Pt also uses a cane or walker during functional transfers. Objective Patient Orientation Person,Place,Birthday Right Upper Extremity Gross ROM WFL Left Upper Extremity Gross ROM WFL Bed Mobility bed mobility-scooting,bed mobility - supine/sit Assist Level Supervision/Stand by Transfer Training Sit/Stand Transfer Assist Level Minimal x 1 (25% assist) Chair Transfer Ability Contact Guard/Hand Hold, Minimal x 1 (25% assist) Chair Transfer Technique Sit to/from Ambulatory Chair Transfer Assistive Devices Rolling Walker Lower Body Dressing Ability Standby Assistance Rehab OT IP prob,goals,plan Problems Date of Evaluation: 10/02/23 OT IP Problems Bed Mobility,Transfers,Balance ,Self care,Safety Rehab Potential Rehab Potential Good Equipment Needs Assistive Devices Rolling / Wheeled Walker Plan OT intervention Plan Bed Mobility,Transfers,Balance ,Self care,Safety,Therapeutic Exercise OT Plan Frequency Daily Duration LOS Discharge Goals Bed Mobility Ability Standby Assistance Sit to Stand Chair Transfer Ability Contact Guard/Hand Hold Chair Transfer Ability Contact Guard/Hand Hold Chair Transfer Technique Sit to/from Ambulatory Chair Transfer Assistive Devices Rolling Walker Lower Body Dressing Ability Standby Assistance Upper Body Dressing Ability Standby Assistance Bathing Ability Standby Assistance Performing Toilet Hygiene Ability Standby Assistance Overall Commode/Toilet Transfer Ability Standby Assistance Commode/Toilet Transfer Technique Sit to/from Ambulatory Commode/Toilet Transfer Assistive Grab Bars Devices Discharge Plan OT Discharge Plan Pt will continue to be seen for OT services while at [facility]. Pt appears to be close to her baseline with ADLs and functional transfers. Pt can discharge home with family once he is medically stable per physician. Therapist does recommend OT evaluation upon returning home. Continued therapy is important in order for patient to improve strength, safety, endurance, ADL independence, and functional transfers to reach PLOF. Eval Complexity Eval Charge Codes 57323 - Moderate Complexity PHYSICIAN CERTIFICATION: I certify the specified therapy services for Rafa Drisclol JR are required, authorized, and reviewed every 30 days.
[2023-10-02 14:25] LABS: Anion Gap 5.5 mEq/L (5-15); Blood Urea Nitrogen 41 mg/dl (9-20); Calcium 8.2 mg/dl (8.4-10.2); Carbon Dioxide 28 mmol/L (22.0-30.0); Chloride 119 mmol/L (98-107); Creatinine Clearance Estimated 62 mL/min (50-200); Estimated Glomerular Filt Rate 86 ml/min (>60); GFR (African American) 103 ML/MIN (>60); Glucose 117 mg/dl (74-100); Potassium 3.5 mmoL/L (3.5-5.1); Sodium 149 mmol/L (136-145)
--- NOTE | 2023-10-02 15:47 | PC.NURSE ---
pt has rested in bed this shift. pt is alert to self and place. pt appears to have short term memory issues r/t tbi from etymology teacher. pt lung sounds are clear throughout. bowel sounds are active in all quads. pt father has been at bedside since the late morning. pt voids with assistance via urinal. pt urine is noted to be light jeanie in color.
[2023-10-02] MEDS: ATORVASTATIN 20MG TABLET 20 MG PO (20:19)
[2023-10-02] MEDS: PANTOPRAZOLE 40MG TABLET 40 MG PO (20:19)
[2023-10-02] MEDS: MELATONIN 5MG TABLET 10 MG PO (20:19)
[2023-10-02] MEDS: ACETAMINOPHEN 325MG TAB 650 MG PO (20:21)
[2023-10-02 22:22] LABS: Chloride 114 mmol/L (98-107); Potassium 3.2 mmoL/L (3.5-5.1); Sodium 146 mmol/L (136-145)
[2023-10-02 22:25] LABS: Anion Gap 6.2 mEq/L (5-15); Blood Urea Nitrogen 34 mg/dl (9-20); Carbon Dioxide 29 mmol/L (22.0-30.0); Creatinine Clearance Estimated 62 mL/min (50-200); Estimated Glomerular Filt Rate 86 ml/min (>60); GFR (African American) 103 ML/MIN (>60)
[2023-10-02 22:26] LABS: Glucose 81 mg/dl (74-100)
[2023-10-03 04:00] VITALS: BP 110/45; PULSE 35; RESP 16; TEMP 36.5; O2SAT 96; BMI 20.1
--- NOTE | 2023-10-03 04:08 | PC.NURSE ---
Pt is alert and oriented x4 however is slow to answer and extremely pleasant. Pt has a noted concern for poor intake and staff has encouraged intake. Pt has complained of moderate lower back pain this shift and has been treated per MAR. Pt has rested well for the most part of the shift and received a shower. Pt denies other needs and has had no acute changes this shift to note.
[2023-10-03] MEDS: POTASSIUM CHLORIDE 20MEQ TAB 40 MEQ PO ×2 (04:20→08:35)
--- NOTE | 2023-10-03 04:44 | PC.NURSE ---
Ayden Gamboa APRN notified face to face at this time, Pt V/S are as follows: BP: 110/45, HR: 35, RR: 16, T: 97.7, and O2: 96% on RA. EQ voiced concerns of dehydration and pt not understanding the need for intake. Note added to pts bedside table to remind him to drink water. New orders for 0.45 NS bolus obtained.
[2023-10-03] MEDS: SODIUM CHLORIDE 0.45 % 500 ML 999 ML IV (04:50)
--- NOTE | 2023-10-03 05:53 | PC.NURSE ---
Pt placed on telemetry at this time to monitor Pt HR. Pt HR is currently 38 BPM (no significant change).
[2023-10-03 07:17] LABS: Basophils % 0.3 % (0.1-2.0); Eosinophils # 0.3 K/mm3 (0.0-0.4); Hematocrit 40.8 % (42.0-52.0); Hemoglobin 13.3 g/dL (14.1-18.0); Lymphocytes # 2.7 K/mm3 (0.7-4.5); Lymphocytes % 32.8 % (10-50); Mean Corpuscular HGB Conc 32.5 g/dL (31.8-35.4); Mean Corpuscular Hemoglobin 33.5 pg (27.0-31.2); Mean Corpuscular Volume 103.1 fl (80-94); Mean Platelet Volume 9.6 fl (7.4-10.4); Monocytes # 0.4 K/mm3 (0.1-1.0); Monocytes % 4.3 % (1.7-9.3); Neutrophils % 59.6 % (37.0-80.0); Platelet Count 103 K/mm3 (142-424); Red Blood Count 3.96 M/mm3 (4.60-6.20); Red Cell Distribution Width 13.9 % (11.5-17.5); White Blood Count 8.3 K/mm3 (4.8-10.8)
[2023-10-03 07:35] VITALS: BP 126/65; PULSE 40; RESP 18; TEMP 36.4; O2SAT 98
[2023-10-03 07:41] LABS: Anion Gap 5.6 mEq/L (5-15); Blood Urea Nitrogen 32 mg/dl (9-20); Calcium 7.7 mg/dl (8.4-10.2); Carbon Dioxide 25 mmol/L (22.0-30.0); Chloride 115 mmol/L (98-107); Creatinine Clearance Estimated 67 mL/min (50-200); Estimated Glomerular Filt Rate 114 ml/min (>60); GFR (African American) 138 ML/MIN (>60); Glucose 77 mg/dl (74-100); Magnesium 1.8 mg/dl (1.6-2.3); Potassium 3.6 mmoL/L (3.5-5.1); Sodium 142 mmol/L (136-145)
[2023-10-03 08:00] VITALS: PULSE 40
[2023-10-03] MEDS: ENOXAPARIN 40MG/0.4ML SYRINGE 40 MG SQ (08:34)
[2023-10-03] MEDS: levETIRAcetam 500 MG TABLET PO (08:34)
[2023-10-03] MEDS: ASPIRIN EC 81MG TABLET 81 MG PO (08:34)
--- NOTE | 2023-10-03 09:42 | EXP.DC.SUM ---
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 Patient is pleasant, but a poor historian. He was admitted here in April for severe hypernatremia as well. On routine labs today with PCP he was noted to have a sodium of 159. On discussion with patient and family, they report no significant recent changes in the patient's status. He takes Keppra for his seizures and has been taking them as prescribed. He does not drink a lot and they are worried he could be dehydrated. 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 Labs obtained. Sent to the ER for hypernatremia of 159. Patient more confused and slower than normal. Appeared more weak. Discussed case with ER physician, request admission for medical management of his hyponatremia. Medicine agreed to admit. Initiated on D5 half-normal with serial sodium levels. Sodium corrected within an appropriate range over the course of his admission. Corrected it approximately 10 mEq a day. Encourage p.o. liquid/free water intake. Patient's sodium normal at 142 on day of discharge. Recommend drinking 3 L of water a day to maintain hydration and maintain normal sodium levels. Provided with pictures at discharge and encouraged to drink 3 of them daily. Patient's hypodypsia puts him at high risk for recurrence. Stable to discharge home. Needs close follow-up with repeat labs in the coming week. Problems addressed as follows: Acute on chronic hypernatremia, likely secondary to water depletion, dehydration Patient with history of traumatic brain disease, suspect hypodipsia, Cognitive impairment: -Patient admitted for repletion of free water deficit. Found to have hypernatremia at 159. This is a recurrent problem for this patient given his history of traumatic brain injury and lack of desire to drink. Sodium slowly corrected on D5 half-normal with p.o. free water intake. Corrected an appropriate rate of approximately 10 mEq/day. Over the course of his hospitalization, sodium normalized to 142. Chloride 115 on day of discharge. Kidney function improving with BUN 32, creatinine 0.7. Encouraged him to drink 3 L of water a day to stay hydrated and maintain normal sodium levels. Improvement in mentation and functionality. Back to baseline by day of discharge. Needs repeat CBC, CMP, magnesium in 1 week to monitor stability of electrolytes and kidney function. -Evaluated by therapy during admission. Would benefit from home health. Ordered to discharge Bradycardia: Asymptomatic sinus bradycardia. No chest pain or discomfort. Monitored on telemetry for 48 hours. -CAD. On aspirin and statin. Resumed seizure disorder: Continued Keppra 500 mg twice daily during admission. No seizures while admitted Exam Data for Last 24 hours Vital signs and Labs for Last 24 Hours: Temp Pulse Resp BP Pulse Ox O2 Del Method 97.6 F 40 L 18 126/65 98 Room Air 10/03/23 07:35 10/03/23 07:35 10/03/23 07:35 10/03/23 07:35 10/03/23 07:35 10/03/23 08:52 Laboratory Results - last 24 hr 10/02/23 14:00: Sodium 149 H, Potassium 3.5, Chloride 119 H, Carbon Dioxide 28, Anion Gap 5.5, BUN 41 H, Creatinine 0.90, Estimated Creat Clear 62, Estimated GFR 86, Est GFR ( Amer) 103, Glucose 117 H, Calcium 8.2 L 10/02/23 22:10: Sodium 146 H, Potassium 3.2 L, Chloride 114 H, Carbon Dioxide 29, Anion Gap 6.2, BUN 34 H, Creatinine 0.90, Estimated Creat Clear 62, Estimated GFR 86, Est GFR ( Amer) 103, Glucose 81 D, Calcium 8.0 L 10/03/23 07:00: WBC 8.3, RBC 3.96 L, Hgb 13.3 L, Hct 40.8 L, MCV 103.1 H, MCH 33.5 H, MCHC 32.5, RDW 13.9, Plt Count 103 L, MPV 9.6, Neut % (Auto) 59.6, Lymph % (Auto) 32.8, [place] % (Auto) 4.3, Eos % (Auto) 3.0, Baso % (Auto) 0.3, Neut # (Auto) 5.0, Lymph # (Auto) 2.7, [place] # (Auto) 0.4, Eos # (Auto) 0.3, Baso # (Auto) 0.0, Sodium 142, Potassium 3.6, Chloride 115 H, Carbon Dioxide 25, Anion Gap 5.6, BUN 32 H, Creatinine 0.70 D, Estimated Creat Clear 67, Estimated GFR 114, Est GFR ( Amer) 138 D, Glucose 77, Calcium 7.7 L, Magnesium 1.8 D I & O for Last 24 hours: Intake & Output 09/30/23 10/01/23 10/02/23 10/03/23 23:59 23:59 23:59 23:59 Intake Total 4463 / 4703 480 / 480 Output Total 400 / 400 200 / 200 Balance 4063 / 4303 280 / 280 Weight 58.967 kg 57.153 kg 61.643 kg Constitutional Constitutional: no acute distress, thin, chronically ill appearing and cooperative *Routine HEENT Exam Head: Present normocephalic Eye: Present EOMI and PERRL ENT: Present mucous membranes moist *Routine Neck Exam Neck: Present supple; Absent lymphadenopathy *Routine Respiratory Exam Respiratory: Present CTA bilaterally; Absent rhonchi, wheezes or crackles *Routine Cardiovascular Exam Cardiovascular: Present RRR and bradycardia *Routine Abdominal Exam Abdominal: Present soft and normoactive bowel sounds; Absent tenderness *Routine Rectal Exam Patient deferred: visual exam *Routine Exam Patient deferred: penile exam *Routine Extremities Exam Extremities: Absent cyanosis, clubbing or edema *Routine Skin Exam Skin: Present warm; Absent rash *Routine Neurological Exam Neurological: Present alert, oriented X3 and moving all extremities; Absent altered mental status Results Data Completed and Pending Labs on day of discharge: Labs from last 24 hours 10/03/23 10/02/23 10/02/23 07:00 22:10 14:00 WBC 8.3 RBC 3.96 L Hgb 13.3 L Hct 40.8 L MCV 103.1 H MCH 33.5 H MCHC 32.5 RDW 13.9 Plt Count 103 L MPV 9.6 Neut % (Auto) 59.6 Lymph % (Auto) 32.8 [place] % (Auto) 4.3 Eos % (Auto) 3.0 Baso % (Auto) 0.3 Neut # (Auto) 5.0 Lymph # (Auto) 2.7 [place] # (Auto) 0.4 Eos # (Auto) 0.3 Baso # (Auto) 0.0 Sodium 142 146 H 149 H Potassium 3.6 3.2 L 3.5 Chloride 115 H 114 H 119 H Carbon Dioxide 25 29 28 Anion Gap 5.6 6.2 5.5 BUN 32 H 34 H 41 H Creatinine 0.70 D 0.90 0.90 Estimated Creat Clear 67 62 62 Estimated GFR 114 86 86 Est GFR ( Amer) 138 D 103 103 Glucose 77 81 D 117 H Calcium 7.7 L 8.0 L 8.2 L Magnesium 1.8 D DS: Diagnosis Discharge Diagnosis (1) Hypernatremia: Status: Acute Code(s): E87.0 - Hyperosmolality and hypernatremia (2) Weakness: Status: Acute Code(s): R53.1 - Weakness (3) [place] (acute kidney injury): Status: Resolved Code(s): N17.9 - Acute kidney failure, unspecified (4) History of traumatic brain injury: Status: Chronic Code(s): Z87.820 - Personal history of traumatic brain injury (5) Cognitive impairment: Status: Chronic Code(s): R41.89 - Other symptoms and signs involving cognitive functions and awareness (6) History of coronary atherosclerosis: Status: Chronic Code(s): Z86.79 - Personal history of other diseases of the circulatory system Meds Home Medications and Allergies Home Medications ?Medication ?Instructions ?Recorded ?Confirmed ?Type ie-2-[id number]-epa-fish oil-vit D3 300 1 cap PO DAILY 12/28/21 10/02/23 History mg-1,000 mg-1,000 unit capsule (Fish Oil-Vit D3) aspirin 81 mg tablet,delayed 81 mg PO DAILY 04/27/23 10/02/23 History release vitamin B complex (B 1 tab PO DAILY 04/27/23 10/02/23 History Complex-Vitamin B12 tablet) melatonin 10 mg tablet 20 mg PO HS 05/15/23 10/02/23 History atorvastatin 20 mg tablet 20 mg PO DAILY Cholesterol #90 tabs 05/31/23 10/02/23 Rx levetiracetam 500 mg tablet 500 mg PO BID #180 tabs 07/09/23 10/02/23 Rx omeprazole 20 mg capsule,delayed 20 mg PO DAILY 10/02/23 10/02/23 History release New Prescriptions to Start Prescriptions: Allergies Allergy/AdvReac Type Severity Reaction Status Date / Time No Known Allergies Allergy Verified 10/01/23 10:11 Discharge Plan Disposition Patient Disposition: Home Health Service Condition: Fair Discharge Order Discharge Orders: Discharge Order (Routine); Ordered 10/03/23 Ordered By: Lex Saini Follow up Plan Follow up with: Kyaw Lira MD [Primary Care Provider] - 10/09/23 10:30 am Prescriptions/Medication Reconciliation: Continued lf-9-[id number]-epa-fish oil-vit D3 [Fish Oil-Vit D3] 300-1,000-1,000 mg-mg-unit capsule 1 cap PO DAILY melatonin 10 mg tablet 20 mg PO HS vitamin B complex [B Complex-Vitamin B12] Tablet 1 tab PO DAILY aspirin 81 mg tablet,delayed release (DR/EC) 81 mg PO DAILY atorvastatin 20 mg tablet 20 mg PO DAILY Qty: 90 1RF levetiracetam 500 mg tablet 500 mg PO BID Qty: 180 3RF omeprazole 20 mg capsule,delayed release(DR/EC) 20 mg PO DAILY Problem Reconciliation Problems Reviewed?: Yes Patient Discharge Instructions ACTIVITY: Continue current activity DIET: continue same diet Patient Instructions: DI for Hypernatremia Print Language: Mauritian Providers Primary Care Provider: Kyaw Lira Admit Provider: Lex Saini Attending Provider: Lex Saini
--- NOTE | 2023-10-03 09:48 | SW/DCPLANNER ---
Addendum entered by Noy Sparks 10/03/23 12:44: Janeen suggs/ [facility] stated that services will start this week. Original Note: I spoke w/ this patient regarding plans once medically stable for discharge. PT/OT evaluated patient yesterday and recommended returning home w/ home health services. Patient is agreeable to home health and does not have an agency preference. I will set up home health services at time of discharge. Discharge date is unknown at this time.
[2023-10-04 04:36] LABS: Osmolality, Urine 790 mOsmol/kg (.)
--- NOTE | 2023-10-05 10:32 | CARE MANAGER ---
Spoke with patient's daughter, who stated that patient continues to have nausea and vomiting. I encouraged her to talk to him about calling his PCP to see if he can been sooner than scheduled.
== END 2023-10-03 11:55 | disposition home health service (06) | DRG 641 ==
LOC: ER 23:18 → 2ND 10-02 08:40
PROVIDERS: Nurse Practitioner Family; Admitting Provider Internal Medicine Adolescent Medicine; Emergency Provider Emergency Medicine; PCP Family Medicine; Visit Provider Internal Medicine Adolescent Medicine
DX: E87.0 Hyperosmolality and hypernatremia (principal); N17.9 Acute kidney failure, unspecified; R56.1 Post traumatic seizures; E86.0 Dehydration; R53.1 Weakness; Z87.820 Personal history of traumatic brain injury; R41.89 Other symptoms and signs involving cognitive functions and awareness; Z86.79 Personal history of other diseases of the circulatory system; E78.5 Hyperlipidemia, unspecified; F17.210 Nicotine dependence, cigarettes, uncomplicated; Z79.899 Other long term (current) drug therapy; R63.8 Other symptoms and signs concerning food and fluid intake; I25.10 Atherosclerotic heart disease of native coronary artery without angina pectoris
CPT/HCPCS: 36415; 80048; 80050; 80053; 80061; 81001; 82570; 83735; 83935; 84443; 84540; 85025; 97163; 97166; 97530; 99285; J1650

== ENCOUNTER 2023-10-18 10:39 | Outpatient (CLI) | payer MEDICARE, SELFPAY ==
[2023-10-18 16:46] LABS: Basophils % 0.3 % (0.1-2.0); Eosinophils # 0.3 K/mm3 (0.0-0.4); Eosinophils % 2.5 % (0.1-12.0); Hematocrit 47.9 % (42.0-52.0); Hemoglobin 14.7 g/dL (14.1-18.0); Lymphocytes # 2.9 K/mm3 (0.7-4.5); Lymphocytes % 26.6 % (10-50); Mean Corpuscular HGB Conc 30.7 g/dL (31.8-35.4); Mean Corpuscular Hemoglobin 33.3 pg (27.0-31.2); Mean Corpuscular Volume 108.3 fl (80-94); Mean Platelet Volume 9.9 fl (7.4-10.4); Monocytes # 0.5 K/mm3 (0.1-1.0); Monocytes % 4.3 % (1.7-9.3); Neutrophils # 7.1 K/mm3 (1.8-7.8); Neutrophils % 66.1 % (37.0-80.0); Platelet Count 230 K/mm3 (142-424); Red Blood Count 4.42 M/mm3 (4.60-6.20); Red Cell Distribution Width 14.3 % (11.5-17.5); White Blood Count 10.8 K/mm3 (4.8-10.8)
[2023-10-18 17:04] LABS: Alanine Aminotransferase 20 U/L (12-78); Albumin Level 3.8 g/dl (3.5-5.0); Albumin/Globulin Ratio 1.2 (1.1-1.8); Alkaline Phosphatase 92 U/L (38-126); Anion Gap 9.8 mEq/L (5-15); Aspartate Amino Transferase 24 U/L (17-59); Bilirubin,Total 0.5 mg/dl (0.2-1.3); Blood Urea Nitrogen 27 mg/dl (9-20); Calcium 9.7 mg/dl (8.4-10.2); Carbon Dioxide 31 mmol/L (22.0-30.0); Chloride 107 mmol/L (98-107); Estimated Glomerular Filt Rate 76 ml/min (>60); GFR (African American) 92 ML/MIN (>60); Globulin 3.1 g/dL (1.3-3.2); Glucose 110 mg/dl (74-100); Magnesium 1.8 mg/dl (1.6-2.3); Potassium 4.8 mmoL/L (3.5-5.1); Sodium 143 mmol/L (136-145); Total Protein,Serum 6.9 g/dl (6.3-8.2)
== END 2023-10-18 23:59 | disposition home or self-care (01) ==
LOC: LAB.DROPOF 10-20 16:35
PROVIDERS: PCP Nurse Practitioner Family; Visit Provider Nurse Practitioner Family
DX: E87.0 Hyperosmolality and hypernatremia (principal)
CPT/HCPCS: 80053; 83735; 85025

== ENCOUNTER 2024-05-09 13:57 | Inpatient (IN) | payer MEDICARE, SELFPAY ==
[2024-05-09] VITALS (28 sets, daily range): BP systolic 100–123; BP diastolic 57–74; PULSE 40–57; RESP 0–24; TEMP 36.4–36.7; O2SAT 94–100; BMI 19.9; BMI 18.7
--- NOTE | 2024-05-09 15:12 | ECG_ITS ---
APPROVED REPORT Exam: Resting ECG HR:53 bpm ECG Measurements Heart Rate 53 AXES AZ 126 P 40 QRSd 97 QRS 37 QT 459 T 47 QTc 441 Conclusion Sinus bradycardia Electronically signed by : XIMENA SAWYER, 05/10/2024 00:00:51
--- NOTE | 2024-05-09 15:14 | PC.NURSE ---
bloodowrk collected and sent to the lab at this time. EKG performed as well and showed sinus lianna. Given to Dr. Sweet
--- NOTE | 2024-05-09 15:16 | XR_ITS ---
FINAL REPORT CLINICAL HISTORY: weakness COMPARISON: 05/17/2023 FINDINGS: A single frontal view of the chest was obtained. No acute pulmonary opacity is present. There is no evidence of effusion or pneumothorax. Mediastinum is unremarkable. Heart size is normal. IMPRESSION: No acute abnormality. Reviewed, Interpreted and Dictated by Melvin Joyner MD Transcribed by Gayla Kirkland Authenticated and [facility]
[2024-05-09 15:20] LABS: Basophils % 0.3 % (0.1-2.0); Eosinophils # 0.2 K/mm3 (0.0-0.4); Eosinophils % 2.1 % (0.1-12.0); Hematocrit 45.2 % (42.0-52.0); Hemoglobin 14.3 g/dL (14.1-18.0); Lymphocytes # 3.1 K/mm3 (0.7-4.5); Mean Corpuscular HGB Conc 31.6 g/dL (31.8-35.4); Mean Corpuscular Hemoglobin 32.9 pg (27.0-31.2); Mean Corpuscular Volume 103.9 fl (80-94); Mean Platelet Volume 13.7 fl (7.4-10.4); Monocytes # 0.6 K/mm3 (0.1-1.0); Monocytes % 6.4 % (1.7-9.3); Neutrophils % 55.9 % (37.0-80.0); Platelet Count 113 K/mm3 (142-424); Red Blood Count 4.35 M/mm3 (4.60-6.20); White Blood Count 8.9 K/mm3 (4.8-10.8)
[2024-05-09 15:37] LABS: Albumin Level 4.2 g/dl (3.5-5.0); Chloride 124 mmol/L (98-107)
[2024-05-09 15:38] LABS: Potassium 3.4 mmoL/L (3.5-5.1)
[2024-05-09 15:40] LABS: Alanine Aminotransferase 33 U/L (12-78); Albumin/Globulin Ratio 1.5 (1.1-1.8); Alkaline Phosphatase 114 U/L (38-126); Anion Gap 9.4 mEq/L (5-15); Aspartate Amino Transferase 42 U/L (17-59); Bilirubin,Total 0.4 mg/dl (0.2-1.3); Blood Urea Nitrogen 46 mg/dl (9-20); Carbon Dioxide 34 mmol/L (22.0-30.0); Creatinine Clearance Estimated 55 mL/min (50-200); Estimated Glomerular Filt Rate 61 ml/min (>60); GFR (African American) 74 ML/MIN (>60); Globulin 2.8 g/dL (1.3-3.2)
[2024-05-09 15:41] LABS: Calcium 9.5 mg/dl (8.4-10.2); Glucose 162 mg/dl (74-100)
[2024-05-09 15:50] LABS: Sodium 164 mmol/L (136-145)
--- NOTE | 2024-05-09 15:50 | PC.NURSE ---
CRITICAL SODIUM 164, DR SAWYER NOTIFIED
[2024-05-09 15:51] LABS: Troponin I < 0.01 ng/ml (0.00-0.034)
--- NOTE | 2024-05-09 16:15 | PC.NURSE ---
DR SAWYER AT BEDSIDE
[2024-05-09] MEDS: SODIUM CHLORIDE 0.45 % 1,000 ML 150 ML IV (16:17)
[2024-05-09] MEDS: FOLIC ACID 1MG TABLET 1 MG PO (16:18)
--- NOTE | 2024-05-09 16:22 | PC.NURSE ---
1615hrs IV established 20ga IV 1618hrs labs sent by DOMINGA Ortiz 1620hrs 0.45% NS started
[2024-05-09 16:29] LABS: Lactate Venous 1.3 mmol/L (0.4-2.0); VBG Base Excess 3.5 mmol/L (-2.4-2.3); VBG HCO3 28.5 mmol/L (23-30); VBG Oxygen Saturation 79.9 % (50-70); VBG PCO2 48.6 mmol/L (35-51); VBG PH 7.39 mmol/L (7.31-7.41); VBG PO2 44.9 mmol/L (28-40)
[2024-05-09 16:34] LABS: Microscopic, Urine URINE MICROSCOPIC (MICROSCOPIC)
[2024-05-09 16:36] LABS: Appearance,Urine CLEAR (Clear); Bilirubin,Urine Negative (Negative); Blood, Urine Negative (Negative); Color,Urine YELLOW (Yellow); Glucose,Urine (UA) Negative (Negative); Ketones,Urine Negative (Negative); Leukocyte Esterase,Urine Negative (Negative); Nitrate,Urine Negative (Negative); Protein,Urine Negative (Negative); Specific Gravity, Urine 1.025 (1.005-1.030)
[2024-05-09 16:44] LABS: Creatinine,Urine Random 243 mg/dL (Not Estab.)
[2024-05-09 16:50] LABS: Phosphorous 2.1 mg/dl (2.5-4.5)
[2024-05-09 16:51] LABS: Magnesium 2.5 mg/dl (1.6-2.3)
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
--- NOTE | 2024-05-09 16:58 | PC.NURSE ---
DR SAWYER SPEAKING WITH DR ATWOOD
[2024-05-09 17:01] LABS: NT Pro Brain Natriuretic Pep. 45.8 pg/mL (0-125)
--- NOTE | 2024-05-09 17:04 | PC.NURSE ---
dr mackenzie is speaking to dr marina at this time
--- NOTE | 2024-05-09 17:05 | PC.NURSE ---
house aware of admission
--- NOTE | 2024-05-09 17:05 | PC.NURSE ---
[employer] FINISHER NOTIFIED OF ADMISSION
[2024-05-09 17:15] LABS: Bacteria,Urine 1+ /lpf; Calcium Oxalate Crystals,Urine 1+ /lpf
[2024-05-09 17:16] LABS: Mucus,Urine 4+ /lpf
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
--- NOTE | 2024-05-09 17:22 | PC.NURSE ---
report called to gwen barreto
[2024-05-09] MEDS: D5W/0.45% NaCl w/20mEq KCL 1,000 ML 200 ML IV ×2 (17:34→22:15)
[2024-05-09] MEDS: ENOXAPARIN 40MG/0.4ML SYRINGE 40 MG SUBCUT (17:36)
[2024-05-09 18:02] LABS: Chloride 125 mmol/L (98-107); Potassium 3.7 mmoL/L (3.5-5.1)
[2024-05-09 18:04] LABS: Blood Urea Nitrogen 48 mg/dl (9-20); Creatinine Clearance Estimated 55 mL/min (50-200); Estimated Glomerular Filt Rate 61 ml/min (>60); GFR (African American) 74 ML/MIN (>60)
[2024-05-09 18:05] LABS: Anion Gap 7.7 mEq/L (5-15); Calcium 9.3 mg/dl (8.4-10.2); Carbon Dioxide 34 mmol/L (22.0-30.0); Glucose 124 mg/dl (74-100)
[2024-05-09 18:13] LABS: Sodium 163 mmol/L (136-145)
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
[2024-05-09 18:57] LABS: Phosphorous 1.8 mg/dl (2.5-4.5)
[2024-05-09 19:10] LABS: Troponin I < 0.01 ng/ml (0.00-0.034)
[2024-05-09] MEDS: POTASSIUM PHOS IN 0.9 % NACL 15 MMOL/250 ML PIGGYBACK 62.5 MMOL IV (19:50)
[2024-05-09] MEDS: PANTOPRAZOLE 40MG VIAL 40 MG IV (20:27)
[2024-05-09] MEDS: levETIRAcetam 500 MG TABLET PO (21:11)
[2024-05-09] MEDS: SENNOSIDES 8.6MG/DOCUSATE 50MG TABLET 1 TAB PO (21:11)
[2024-05-09 22:16] LABS: Troponin I < 0.01 ng/ml (0.00-0.034)
[2024-05-09 23:31] LABS: Chloride 122 mmol/L (98-107); Potassium 3.5 mmoL/L (3.5-5.1)
[2024-05-09] MEDS: NICOTINE 21MG/24HR PATCH 21 MG TD (23:33)
[2024-05-09 23:34] LABS: Blood Urea Nitrogen 40 mg/dl (9-20); Creatinine Clearance Estimated 62 mL/min (50-200); Estimated Glomerular Filt Rate 75 ml/min (>60); GFR (African American) 91 ML/MIN (>60)
[2024-05-09 23:35] LABS: Anion Gap 5.5 mEq/L (5-15); Calcium 8.5 mg/dl (8.4-10.2); Carbon Dioxide 33 mmol/L (22.0-30.0); Glucose 131 mg/dl (74-100)
[2024-05-09 23:38] LABS: Sodium 157 mmol/L (136-145)
[2024-05-10] VITALS (49 sets, daily range): BP systolic 93–129; BP diastolic 52–93; PULSE 37–50; RESP 0–24; TEMP 36.4–36.7; O2SAT 90–97; BMI 20.1
[2024-05-10] MEDS: POTASSIUM PHOS IN 0.9 % NACL 15 MMOL/250 ML PIGGYBACK 62.5 MMOL IV (01:06)
[2024-05-10] MEDS: D5W/0.45% NaCl w/20mEq KCL 1,000 ML 200 ML IV ×2 (03:57→11:29)
--- NOTE | 2024-05-10 05:02 | PC.NURSE ---
PT WAS ADMITTED TO THE ICU DEHYDRATION/HYPERNATREMIA/ACUTE LORETTA. DURING MY SHIFT 2L OF D5W/045% NaCl W/ 20meq KCL WERE HUNG AND STILL BEING DISTRIBUTED IV. PT ALSO RECEIVED 2 BAGS OF OF KPHOS IN 0.9% NaCl 15MMOL IN 250ML @ 62.5 ML/HR D/T A PHOSPHORUS OF 1.8. PT PLEASANT/FRIENDLY AND IS CURRENTLY RESTING IN BED WATCHING TV WITH THEIR CALL LIGHT IN REACH.
[2024-05-10 08:18] LABS: Anion Gap 5.7 mEq/L (5-15); Blood Urea Nitrogen 34 mg/dl (9-20); Calcium 7.9 mg/dl (8.4-10.2); Carbon Dioxide 29 mmol/L (22.0-30.0); Chloride 124 mmol/L (98-107); Creatinine Clearance Estimated 66 mL/min (50-200); Estimated Glomerular Filt Rate 98 ml/min (>60); GFR (African American) 118 ML/MIN (>60); Glucose 150 mg/dl (74-100); Potassium 3.7 mmoL/L (3.5-5.1)
[2024-05-10 08:22] LABS: Sodium 155 mmol/L (136-145)
[2024-05-10 08:40] LABS: Magnesium 1.9 mg/dl (1.6-2.3)
[2024-05-10] MEDS: levETIRAcetam 500 MG TABLET PO ×2 (09:10→20:26)
[2024-05-10] MEDS: SENNOSIDES 8.6MG/DOCUSATE 50MG TABLET 1 TAB PO (09:10)
--- NOTE | 2024-05-10 10:19 | PC.NURSE ---
Patient able to walk from bed to bathroom with assistance and a walker.
[2024-05-10 11:37] LABS: Basophils % 0.3 % (0.1-2.0); Eosinophils # 0.2 K/mm3 (0.0-0.4); Eosinophils % 2.5 % (0.1-12.0); Hematocrit 38.7 % (42.0-52.0); Lymphocytes # 2.4 K/mm3 (0.7-4.5); Lymphocytes % 31.5 % (10-50); Mean Corpuscular HGB Conc 31.3 g/dL (31.8-35.4); Mean Corpuscular Hemoglobin 32.4 pg (27.0-31.2); Mean Corpuscular Volume 103.8 fl (80-94); Mean Platelet Volume 13.3 fl (7.4-10.4); Monocytes # 0.5 K/mm3 (0.1-1.0); Monocytes % 6.3 % (1.7-9.3); Neutrophils # 4.6 K/mm3 (1.8-7.8); Neutrophils % 59.1 % (37.0-80.0); Platelet Count 103 K/mm3 (142-424); Red Blood Count 3.73 M/mm3 (4.60-6.20); Red Cell Distribution Width 12.8 % (11.5-17.5); White Blood Count 7.7 K/mm3 (4.8-10.8)
--- NOTE | 2024-05-10 11:37 | P.PN_ITS ---
Subjective *Date: 05/10/24 *Time: 12:40 Interval history: Comfortable on room air this morning. Tolerating p.o. liquids. Ate a small portion of breakfast. Did eat some dinner. Kept his food down, no nausea or vomiting. Bowel movement this morning. Afebrile. [place] more alert and int eractive today. Medical Exam Vital signs and Labs for Last 24 Hours: Vital Signs Temp Pulse Pulse Resp BP BP Pulse Ox 05/10/24 10:15 48 L 23 108/60 L 96 05/10/24 09:01 108/60 L 05/10/24 09:00 39 L 15 96 05/10/24 09:00 05/10/24 08:20 05/10/24 08:00 50 L 05/10/24 08:00 46 L 24 129/93 H 95 05/10/24 07:30 44 L 15 94 L 05/10/24 07:15 47 L 13 95 05/10/24 07:00 41 L 20 95 05/10/24 07:00 123/83 05/10/24 07:00 40 L 17 123/83 94 L 05/10/24 07:00 05/10/24 06:45 42 L 20 94 L 05/10/24 06:30 42 L 24 93 L 05/10/24 06:15 38 L 19 94 L 05/10/24 06:01 39 L 18 92 L 05/10/24 06:01 126/64 05/10/24 06:00 39 L 19 92 L 05/10/24 06:00 97.6 F 39 L 18 126/64 94 L 05/10/24 05:45 37 L 17 93 L 05/10/24 05:30 39 L 19 94 L 05/10/24 05:20 39 L 16 106/64 L 93 L 05/10/24 05:15 41 L 22 92 L 05/10/24 05:00 40 L 0 L 91 L 05/10/24 05:00 106/64 L 05/10/24 05:00 05/10/24 04:45 42 L 15 91 L 05/10/24 04:30 41 L 21 90 L 05/10/24 04:15 43 L 6 L 91 L 05/10/24 04:00 41 L 9 L 91 L 05/10/24 04:00 114/70 05/10/24 04:00 43 L 05/10/24 04:00 97.5 F L 42 L 18 114/70 93 L 05/10/24 04:00 05/10/24 03:45 43 L 13 92 L 05/10/24 03:30 45 L 15 94 L 05/10/24 03:15 38 L 20 97 05/10/24 03:00 38 L 20 95 05/10/24 03:00 106/52 L 05/10/24 03:00 38 L 20 106/52 L 96 05/10/24 03:00 05/10/24 02:45 41 L 21 96 05/10/24 02:30 41 L 21 95 05/10/24 02:15 39 L 20 95 05/10/24 02:00 96/56 L 05/10/24 02:00 41 L 19 96 05/10/24 02:00 42 L 14 96/56 L 94 L 05/10/24 01:45 43 L 0 L 96 05/10/24 01:30 40 L 20 95 05/10/24 01:15 39 L 19 94 L 05/10/24 01:00 127/69 05/10/24 01:00 40 L 19 96 05/10/24 01:00 05/10/24 01:00 42 L 21 127/69 95 05/10/24 00:45 42 L 20 94 L 05/10/24 00:30 41 L 19 95 05/10/24 00:15 44 L 21 93 L 05/10/24 00:00 118/68 05/10/24 00:00 44 L 20 94 L 05/10/24 00:00 05/10/24 00:00 45 L 05/10/24 00:00 97.6 F 44 L 19 118/68 94 L 05/09/24 23:45 43 L 0 L 94 L 05/09/24 23:30 46 L 18 95 05/09/24 23:15 45 L 19 94 L 05/09/24 23:00 42 L 24 95 05/09/24 23:00 102/61 L 05/09/24 23:00 44 L 13 102/61 L 94 L 05/09/24 23:00 05/09/24 22:45 45 L 19 95 05/09/24 22:30 43 L 8 L 95 05/09/24 22:15 47 L 14 94 L 05/09/24 22:01 48 L 11 L 97 05/09/24 22:01 97.5 F L 43 L 17 110/59 L 95 05/09/24 22:00 45 L 13 110/59 L 94 L 05/09/24 21:00 05/09/24 21:00 40 L 22 94 L 05/09/24 21:00 111/71 05/09/24 20:45 51 L 15 94 L 05/09/24 20:30 50 L 12 94 L 05/09/24 20:15 46 L 11 L 94 L 05/09/24 20:00 05/09/24 20:00 44 L 8 L 95 05/09/24 20:00 100/60 L 05/09/24 20:00 45 L 05/09/24 20:00 97.5 F L 46 L 21 100/60 L 98 05/09/24 19:45 43 L 22 95 05/09/24 19:30 44 L 23 95 05/09/24 19:15 45 L 0 L 96 05/09/24 19:01 55 L 17 96 05/09/24 19:01 123/74 05/09/24 19:00 48 L 12 96 05/09/24 19:00 47 L 13 123/74 97 05/09/24 18:45 53 L 16 97 05/09/24 18:30 52 L 15 97 05/09/24 18:30 05/09/24 18:15 52 L 14 95 05/09/24 18:08 51 L 20 96 05/09/24 18:00 05/09/24 17:50 97.7 F 05/09/24 17:24 98.0 F 55 L 22 112/62 05/09/24 17:00 46 L 18 109/63 L 97 05/09/24 16:31 49 L 22 120/66 96 05/09/24 14:58 97.5 F L 57 L 17 111/57 L 98 O2 Del Method 05/10/24 10:15 Room Air 05/10/24 09:01 05/10/24 09:00 Room Air 05/10/24 09:00 Room Air 05/10/24 08:20 Room Air 05/10/24 08:00 05/10/24 08:00 Room Air 05/10/24 07:30 05/10/24 07:15 05/10/24 07:00 05/10/24 07:00 05/10/24 07:00 Room Air 05/10/24 07:00 Room Air 05/10/24 06:45 05/10/24 06:30 05/10/24 06:15 05/10/24 06:01 05/10/24 06:01 05/10/24 06:00 05/10/24 06:00 Room Air 05/10/24 05:45 05/10/24 05:30 05/10/24 05:20 Room Air 05/10/24 05:15 05/10/24 05:00 05/10/24 05:00 05/10/24 05:00 Room Air 05/10/24 04:45 05/10/24 04:30 05/10/24 04:15 05/10/24 04:00 05/10/24 04:00 05/10/24 04:00 05/10/24 04:00 Room Air 05/10/24 04:00 Room Air 05/10/24 03:45 05/10/24 03:30 05/10/24 03:15 05/10/24 03:00 05/10/24 03:00 05/10/24 03:00 Room Air 05/10/24 03:00 Room Air 05/10/24 02:45 05/10/24 02:30 05/10/24 02:15 05/10/24 02:00 05/10/24 02:00 05/10/24 02:00 Room Air 05/10/24 01:45 05/10/24 01:30 05/10/24 01:15 05/10/24 01:00 05/10/24 01:00 05/10/24 01:00 Room Air 05/10/24 01:00 Room Air 05/10/24 00:45 05/10/24 00:30 05/10/24 00:15 05/10/24 00:00 05/10/24 00:00 05/10/24 00:00 Room Air 05/10/24 00:00 05/10/24 00:00 Room Air 05/09/24 23:45 05/09/24 23:30 05/09/24 23:15 05/09/24 23:00 05/09/24 23:00 05/09/24 23:00 Room Air 05/09/24 23:00 Room Air 05/09/24 22:45 05/09/24 22:30 05/09/24 22:15 05/09/24 22:01 05/09/24 22:01 05/09/24 22:00 Room Air 05/09/24 21:00 Room Air 05/09/24 21:00 05/09/24 21:00 05/09/24 20:45 05/09/24 20:30 05/09/24 20:15 05/09/24 20:00 Room Air 05/09/24 20:00 05/09/24 20:00 05/09/24 20:00 05/09/24 20:00 Room Air 05/09/24 19:45 05/09/24 19:30 05/09/24 19:15 05/09/24 19:01 05/09/24 19:01 05/09/24 19:00 05/09/24 19:00 Room Air 05/09/24 18:45 05/09/24 18:30 05/09/24 18:30 Room Air 05/09/24 18:15 05/09/24 18:08 05/09/24 18:00 Room Air 05/09/24 17:50 05/09/24 17:24 Room Air 05/09/24 17:00 05/09/24 16:31 05/09/24 14:58 Room Air Intake and Output 05/09/24 05/10/24 05/10/24 23:59 07:59 15:59 Intake Total 210 / 1546 1336 / 2886 1550 / 2886 Output Total 200 / 200 350 / 350 0 / 350 Balance 10 / 1346 986 / 2536 1550 / 2536 Intake: Intake, Oral Amount 210 / 210 30 / 30 Intake, Total IV Amount 1336 / 2856 1520 / 2856 D5W/0.45% NaCl w/20mEq KCL 1, 1145 / 2665 1520 / 2665 000 ml @ 200 mls/hr IV .Q5H [facility] Rx#:[id number] Potassium Phos in 0.9 % NaCl 15 191 / 191 mmol In 250 ml @ 62.5 mls/hr IV Q4H [facility] Rx#:[id number] Output: Output, Urine Amount 200 / 200 350 / 350 0 / 350 Other: Number of Unmeasured Voids 1 Number of Bowel Movements 1 Weight 57.606 kg 61.689 kg Patient Weight 05/10/24 23:59 Weight 61.689 kg Laboratory Results - last 24 hr 05/09/24 15:11: WBC 8.9, RBC 4.35 L, Hgb 14.3, Hct 45.2, MCV 103.9 H, MCH 32.9 H , MCHC 31.6 L, RDW 13.0, Plt Count 113 L, MPV 13.7 H, Neut % (Auto) 55.9, Lymph % (Auto) 35.0, [place] % (Auto) 6.4, Eos % (Auto) 2.1, Baso % (Auto) 0.3, Neut # (Auto) 5.0, Lymph # (Auto) 3.1, [place] # (Auto) 0.6, Eos # (Auto) 0.2, Baso # (Auto) 0.0, Sodium 164 H*, Potassium 3.4 L, Chloride 124 H, Carbon Dioxide 34 H, Anion Gap 9.4, BUN 46 H, Creatinine 1.20, Estimated Creat Clear 55, Estimated GFR 61, Est GFR ( Amer) 74, Glucose 162 H, Calcium 9.5, Total Bilirubin 0.4, AST 42, ALT 33, Alkaline Phosphatase 114, Troponin I < 0.01, Total Protein 7.0, Albumin 4.2, Globulin 2.8, Albumin/Globulin Ratio 1.5 05/09/24 15:17: Urine Color Yellow, Urine Appearance Clear, Urine pH 6.0, Ur Specific [place] 1.025, Urine Protein Negative, Urine Glucose (UA) Negative, Ur ine Ketones Negative, Urine Blood Negative, Urine Nitrate Negative, Urine Bilirubin Negative, Urine Urobilinogen 1.0, Ur Leukocyte Esterase Negative, Urine RBC 10-20, Urine WBC 3-5, Ur Squamous Epith Cells 3-5, Calcium Oxalate Crystal 1+, Urine Bacteria 1+, Urine Mucus 4+, Urine Creatinine 243, Urine Sodium 72.0 05/09/24 16:07: VBG pH 7.39, VBG pCO2 48.6, VBG pO2 44.9 H, VBG HCO3 28.5, VBG Total CO2 30.0 H, VBG O2 Saturation 79.9 H, VBG Base Excess 3.5 H, VBG Lactic Acid 1.3 05/09/24 16:18: Phosphorus 2.1 L, Magnesium 2.5 H, NT-Pro-B Natriuret Pep 45.8 05/09/24 16:39: Phosphorus 1.8 L 05/09/24 17:45: Sodium 163 H*, Potassium 3.7, Chloride 125 H, Carbon Dioxide 34 H, Anion Gap 7.7, BUN 48 H, Creatinine 1.20, Estimated Creat Clear 55, Estimated GFR 61, Est GFR ( Amer) 74, Glucose 124 H D, Calcium 9.3 05/09/24 18:39: Troponin I < 0.01 05/09/24 21:28: Troponin I < 0.01 05/09/24 23:17: Sodium 157 H*, Potassium 3.5, Chloride 122 H, Carbon Dioxide 33 H, Anion Gap 5.5, BUN 40 H, Creatinine 1.00, Estimated Creat Clear 62, Estimated GFR 75, Est GFR ( Amer) 91 D, Glucose 131 H, Calcium 8.5 05/10/24 06:30: Sodium 155 H*, Potassium 3.7, Chloride 124 H, Carbon Dioxide 29, Anion Gap 5.7, BUN 34 H, Creatinine 0.80, Estimated Creat Clear 66, Estimated GFR 98, Est GFR ( Amer) 118 D, Glucose 150 H, Calcium 7.9 L, Phosphorus 3.0 D, Magnesium 1.9 D I & O for Labs for Last 24 Hours: Intake & Output 05/07/24 05/08/24 05/09/24 05/10/24 23:59 23:59 23:59 23:59 Intake Total 210 / 1546 2886 / 2886 Output Total 200 / 200 350 / 350 Balance 134 2536 / 2536 Weight 57.606 kg 61.689 kg Constitutional: Present no acute distress, cachectic, chronically ill appearing and cooperative Head: Present atraumatic and normocephalic ENT: Present normal exam Neck: Present normal inspection Respiratory: Present normal respiratory effort; Absent rhonchi, wheezes or crackles Cardiac: Present Reg Rate and Rhythm GI: Present normal bowel sounds; Absent tenderness Extremities: Present normal inspection and full ROM Skin: Present intact; Absent erythema Neuro: Present Grossly Intact, alert, awake and moves all extremities Comment:: Oriented to self and place Assessment and Plan *Assessment and plan (1) Hyperosmolality and hypernatremia: Status: Acute Category: Medical Code(s): E87.0 - Hyperosmolality and hypernatremia (2) Generalized weakness: Status: Acute Category: Medical Code(s): R53.1 - Weakness (3) LORETTA (acute kidney injury): Status: Resolved Category: Medical Code(s): N17.9 - Acute kidney failure, unspecified (4) History of traumatic brain injury: Status: Chronic Category: Medical Code(s): Z87.820 - Personal history of traumatic brain injury (5) Hypodipsia/adipsia: Status: Acute Category: Medical Code(s): E87.0 - Hyperosmolality and hypernatremia (6) Cognitive impairment: Status: Chronic Category: Medical Code(s): R41.89 - Other symptoms and signs involving cognitive functions and awareness (7) History of coronary atherosclerosis: Status: Chronic Category: Medical Code(s): Z86.79 - Personal history of other diseases of the circulatory system (8) Acute hypernatremia: Status: Acute Category: Medical Code(s): E87.0 - Hyperosmolality and hypernatremia (9) Acute dehydration: Status: Acute Category: Medical Code(s): E86.0 - Dehydration Plan 64-year-old male with PMHx of moderate hypernatremia, traumatic brain injury, seizure, presented to the emergency department with weakness and nausea. Found to have elevated sodium at 164 and [place] with BUN of 46, creatinine 1.2. Discussed case with ER physician, request admission for management of his electrolyte disturbances. Patient has known history of traumatic brain injury with lack of thirst drive. Showing some improvement in sodium, correcting at an appropriate rate. Still has high risk for decompensation with need for close monitoring given risk for cerebral edema if correct too quickly. Condition remains serious, given clinical stability, will downgrade status to stepdown. Problems addressed as follows: Hyperosmolality and hypernatremia Generalized weakness Hypodipsia/adipsia History of traumatic brain injury L[place] -Sodium 164, chloride 124 on presentation. Showing improvement. Sodium 155 this morning. Correcting approximately 10 mEq in the past 24 hours. Will continue to monitor closely with repeat sodium levels every 6 hours today. -Chloride still elevated at 124. Kidney function improving with BUN 34, creatinine 0.8. - continue D5 half-normal with 20 of KCl at 150 cc/h. -Free water deficit of 6.3 L to achieve normal sodium of 140 at time of admission. - Correct at rate of 8 to 10 mEq/day. -Repeat CBC, magnesium, and phosphorus ordered for the morning. -Phosphorus level low on presentation, was repleted last night. Improved to 3.0 this morning. -Encourage p.o. fluid intake at least 2 L a day. -Strict I's and O's Nausea/vomiting: Unclear etiology of stomach bug versus symptoms due to hypernatremia versus other pathology. If no improvement the next 24 hours, will consider CT abdomen pelvis to evaluate other pathology. Patient is a longtime smoker. Risk for esophageal and stomach cancer is present. Continue pantoprazole 40 mg IV given history of GERD. Zofran as needed 4 mg every 8 hours for nausea and vomiting History of seizure disorder: Continue Keppra 500 mg twice daily per home regimen Bradycardia: Present on previous admissions. Chronic. Asymptomatic sinus bradycardia. No chest pain or discomfort. Monitor on telemetry for 24 hours. If no arrhythmias or remains asymptomatic, will have low threshold to discontinue CAD: Holding aspirin and statin pending improvement in p.o. intake and electrolyte disturbances Constipation: Bowel movement this morning. Continue docusate senna twice daily. Lovenox for DVT prophylaxis On Protonix for GERD Regular diet Full code
[2024-05-10 11:39] LABS: Chloride 121 mmol/L (98-107)
[2024-05-10 11:40] LABS: Potassium 3.7 mmoL/L (3.5-5.1)
[2024-05-10 11:42] LABS: Blood Urea Nitrogen 31 mg/dl (9-20); Sodium 153 mmol/L (136-145)
[2024-05-10 11:43] LABS: Anion Gap 5.7 mEq/L (5-15); Calcium 7.7 mg/dl (8.4-10.2); Carbon Dioxide 30 mmol/L (22.0-30.0); Creatinine Clearance Estimated 66 mL/min (50-200); Estimated Glomerular Filt Rate 98 ml/min (>60); GFR (African American) 118 ML/MIN (>60); Glucose 108 mg/dl (74-100)
[2024-05-10 11:46] LABS: Hemoglobin 12.1 g/dL (14.1-18.0)
--- NOTE | 2024-05-10 16:13 | PC.NURSE ---
Patient alert and oriented times 4. Patient able to ambulate to the bathroom twice and had a bowel movement twice during shift. Lung sounds clear, no nausea reported after eating.
[2024-05-10 17:29] LABS: Chloride 119 mmol/L (98-107); Potassium 3.8 mmoL/L (3.5-5.1)
[2024-05-10 17:32] LABS: Anion Gap 6.8 mEq/L (5-15); Blood Urea Nitrogen 26 mg/dl (9-20); Calcium 7.7 mg/dl (8.4-10.2); Carbon Dioxide 29 mmol/L (22.0-30.0); Creatinine Clearance Estimated 66 mL/min (50-200); Estimated Glomerular Filt Rate 98 ml/min (>60); GFR (African American) 118 ML/MIN (>60); Glucose 112 mg/dl (74-100)
[2024-05-10 17:36] LABS: Sodium 151 mmol/L (136-145)
[2024-05-10] MEDS: ENOXAPARIN 40MG/0.4ML SYRINGE 40 MG SUBCUT (18:00)
[2024-05-10] MEDS: D5W/0.45% NaCl w/40mEq KCl 1,000 ML 150 ML IV (18:00)
[2024-05-10] MEDS: PANTOPRAZOLE 40MG VIAL 40 MG IV (20:26)
[2024-05-11] VITALS (10 sets, daily range): BP systolic 108–128; BP diastolic 60–71; PULSE 40–60; RESP 16–21; TEMP 36.3–36.8; O2SAT 92–98; BMI 20.4
[2024-05-11] MEDS: D5W/0.45% NaCl w/40mEq KCl 1,000 ML 150 ML IV (00:49)
[2024-05-11] MEDS: levETIRAcetam 500 MG TABLET PO ×2 (08:05→20:23)
[2024-05-11 09:09] LABS: Basophils % 0.1 % (0.1-2.0); Eosinophils # 0.3 K/mm3 (0.0-0.4); Eosinophils % 3.3 % (0.1-12.0); Hematocrit 38.7 % (42.0-52.0); Hemoglobin 12.6 g/dL (14.1-18.0); Lymphocytes # 2.4 K/mm3 (0.7-4.5); Lymphocytes % 31.5 % (10-50); Mean Corpuscular HGB Conc 32.6 g/dL (31.8-35.4); Mean Corpuscular Hemoglobin 33.2 pg (27.0-31.2); Mean Corpuscular Volume 101.8 fl (80-94); Mean Platelet Volume 13.8 fl (7.4-10.4); Monocytes # 0.4 K/mm3 (0.1-1.0); Monocytes % 5.3 % (1.7-9.3); Neutrophils # 4.5 K/mm3 (1.8-7.8); Neutrophils % 59.7 % (37.0-80.0); Platelet Count 107 K/mm3 (142-424); Red Cell Distribution Width 12.5 % (11.5-17.5); White Blood Count 7.6 K/mm3 (4.8-10.8)
[2024-05-11 09:33] LABS: Alanine Aminotransferase 23 U/L (12-78); Albumin Level 2.8 g/dl (3.5-5.0); Albumin/Globulin Ratio 1.2 (1.1-1.8); Alkaline Phosphatase 81 U/L (38-126); Anion Gap 3.8 mEq/L (5-15); Aspartate Amino Transferase 38 U/L (17-59); Bilirubin,Total 0.4 mg/dl (0.2-1.3); Blood Urea Nitrogen 17 mg/dl (9-20); Calcium 7.3 mg/dl (8.4-10.2); Carbon Dioxide 24 mmol/L (22.0-30.0); Chloride 122 mmol/L (98-107); Creatinine Clearance Estimated 67 mL/min (50-200); Estimated Glomerular Filt Rate 114 ml/min (>60); GFR (African American) 138 ML/MIN (>60); Globulin 2.4 g/dL (1.3-3.2); Glucose 128 mg/dl (74-100); Magnesium 1.8 mg/dl (1.6-2.3); Potassium 3.8 mmoL/L (3.5-5.1); Sodium 146 mmol/L (136-145); Total Protein,Serum 5.2 g/dl (6.3-8.2)
[2024-05-11 09:36] LABS: Phosphorous 1.9 mg/dl (2.5-4.5)
--- NOTE | 2024-05-11 09:54 | EXP.ACUTE.PN ---
Subjective *Date: 05/11/24 *Time: 09:54 Interval history: Patient alert and this morning. Stable on room air. Tolerating p.o. intake. Has had multiple bowel movements. Denies chest pain or shortness of breath. Afebrile Medical Exam Vital signs and Labs for Last 24 Hours: Vital Signs Temp Pulse Pulse Resp BP Pulse Ox O2 Del Method 05/11/24 09:00 Room Air 05/11/24 08:00 Room Air 05/11/24 08:00 42 L 05/11/24 07:55 97.8 F 44 L 16 111/68 96 Room Air 05/11/24 06:50 Room Air 05/11/24 04:51 Room Air 05/11/24 04:06 114/60 05/11/24 04:06 98 F 42 L 18 96 Room Air 05/11/24 04:00 40 L 05/11/24 03:00 Room Air 05/11/24 00:45 Room Air 05/11/24 00:00 40 L 05/11/24 00:00 108/61 L 05/11/24 00:00 98.2 F 42 L 21 92 L Room Air 05/10/24 23:00 Room Air 05/10/24 22:01 42 L 16 95 05/10/24 20:41 Room Air 05/10/24 20:00 40 L 05/10/24 20:00 41 L 22 107/65 L 96 Room Air 05/10/24 20:00 44 L 95 Room Air 05/10/24 18:33 Room Air 05/10/24 17:00 Room Air 05/10/24 16:24 97.6 F 05/10/24 16:11 46 L 12 97 Room Air 05/10/24 16:11 93/55 L 05/10/24 16:00 39 L 05/10/24 15:00 Room Air 05/10/24 12:55 Room Air 05/10/24 12:00 40 L 05/10/24 12:00 44 L 16 97 05/10/24 11:45 40 L 12 94 L 05/10/24 11:30 44 L 17 95 05/10/24 11:15 43 L 22 95 05/10/24 11:10 Room Air 05/10/24 11:00 43 L 22 96 05/10/24 10:45 40 L 19 96 05/10/24 10:30 98.1 F 39 L 17 95/58 L 95 05/10/24 10:15 48 L 23 108/60 L 96 Room Air 05/10/24 09:01 108/60 L 05/10/24 09:00 39 L 15 96 Room Air 05/10/24 09:00 Room Air Intake and Output 05/10/24 05/11/24 05/11/24 23:59 08:59 15:59 Intake Total 1176 / 4212 1042 / 1262 220 / 1262 Output Total 0 / 600 650 / 650 Balance 1176 / 3612 392 / 612 220 / 612 Intake: Intake, Oral Amount 120 / 300 220 / 220 Intake, Total IV Amount 1056 / 3912 1042 / 1042 D5W/0.45% NaCl w/20mEq KCL 1, 1056 / 3721 1042 / 1042 000 ml @ 200 mls/hr IV .Q5H [facility] Rx#:[id number] Output: Output, Urine Amount 0 / 600 650 / 650 Other: Number of Unmeasured Voids 1 1 Number of Bowel Movements 1 1 Weight 62.596 kg Patient Weight 05/12/24 00:59 Weight 62.596 kg Laboratory Results - last 24 hr 05/10/24 11:20: WBC 7.7, RBC 3.73 L, Hgb 12.1 L D, Hct 38.7 L, MCV 103.8 H, MCH 32.4 H, MCHC 31.3 L, RDW 12.8, Plt Count 103 L, MPV 13.3 H, Neut % (Auto) 59.1, Lymph % (Auto) 31.5, [place] % (Auto) 6.3, Eos % (Auto) 2.5, Baso % (Auto) 0.3, Neut # (Auto) 4.6, Lymph # (Auto) 2.4, [place] # (Auto) 0.5, Eos # (Auto) 0.2, Baso # (Auto) 0.0, Sodium 153 H*, Potassium 3.7, Chloride 121 H, Carbon Dioxide 30, Anion Gap 5.7, BUN 31 H, Creatinine 0.80, Estimated Creat Clear 66, Estimated GFR 98, Est GFR ( Amer) 118, Glucose 108 H D, Calcium 7.7 L 05/10/24 16:50: Sodium 151 H*, Potassium 3.8, Chloride 119 H, Carbon Dioxide 29, Anion Gap 6.8, BUN 26 H, Creatinine 0.80, Estimated Creat Clear 66, Estimated GFR 98, Est GFR ( Amer) 118, Glucose 112 H, Calcium 7.7 L 05/11/24 06:26: WBC 7.6, RBC 3.80 L, Hgb 12.6 L, Hct 38.7 L, MCV 101.8 H, MCH 33.2 H, MCHC 32.6, RDW 12.5, Plt Count 107 L, MPV 13.8 H, Neut % (Auto) 59.7, Lymph % (Auto) 31.5, [place] % (Auto) 5.3, Eos % (Auto) 3.3, Baso % (Auto) 0.1, Neut # (Auto) 4.5, Lymph # (Auto) 2.4, [place] # (Auto) 0.4, Eos # (Auto) 0.3, Baso # (Auto) 0.0, Sodium 146 H, Potassium 3.8, Chloride 122 H, Carbon Dioxide 24, Anion Gap 3.8 L, BUN 17 D, Creatinine 0.70, Estimated Creat Clear 67, Estimated GFR 114, Est GFR ( Amer) 138, Glucose 128 H, Calcium 7.3 L, Phosphorus 1.9 L D, Magnesium 1.8, Total Bilirubin 0.4, AST 38, ALT 23 D, Alkaline Phosphatase 81, Total Protein 5.2 L D, Albumin 2.8 L, Globulin 2.4, Albumin/Globulin Ratio 1.2 I & O for Labs for Last 24 Hours: Intake & Output 05/08/24 05/09/24 05/10/24 05/12/24 23:59 23:59 23:59 00:59 Intake Total 210 / 1546 4212 / 4212 1262 / 1262 Output Total 200 / 200 350 / 600 650 / 650 Balance 1345 3862 / 3612 612 / 612 Weight 57.606 kg 61.689 kg 62.596 kg Microbiology Reports for the Last 24 Hours: Microbiology 05/09/24 16:18 Blood Blood Culture - Preliminary NO GROWTH AFTER 24 HOURS 05/09/24 16:18 Blood Blood Culture - Preliminary NO GROWTH AFTER 24 HOURS Constitutional: Present no acute distress, cachectic, chronically ill appearing and cooperative Head: Present atraumatic and normocephalic ENT: Present normal exam Neck: Present normal inspection Respiratory: Present normal respiratory effort; Absent rhonchi, wheezes or crackles Cardiac: Present Reg Rate and Rhythm GI: Present normal bowel sounds; Absent tenderness Extremities: Present normal inspection and full ROM Skin: Present intact; Absent erythema Neuro: Present Grossly Intact, alert, awake and moves all extremities Comment:: Oriented to self and place, little bit more energetic and interactive today. Assessment and Plan *Assessment and plan (1) Hyperosmolality and hypernatremia: Status: Acute Category: Medical Code(s): E87.0 - Hyperosmolality and hypernatremia (2) Generalized weakness: Status: Acute Category: Medical Code(s): R53.1 - Weakness (3) LORETTA (acute kidney injury): Status: Resolved Category: Medical Code(s): N17.9 - Acute kidney failure, unspecified (4) History of traumatic brain injury: Status: Chronic Category: Medical Code(s): Z87.820 - Personal history of traumatic brain injury (5) Hypodipsia/adipsia: Status: Acute Category: Medical Code(s): E87.0 - Hyperosmolality and hypernatremia (6) Cognitive impairment: Status: Chronic Category: Medical Code(s): R41.89 - Other symptoms and signs involving cognitive functions and awareness (7) History of coronary atherosclerosis: Status: Chronic Category: Medical Code(s): Z86.79 - Personal history of other diseases of the circulatory system (8) Acute dehydration: Status: Acute Category: Medical Code(s): E86.0 - Dehydration (9) Hypophosphatemia: Status: Acute Category: Medical Code(s): E83.39 - Other disorders of phosphorus metabolism Plan 64-year-old male with PMHx of moderate hypernatremia, traumatic brain injury, seizure, presented to the emergency department with weakness and nausea. Found to have elevated sodium at 164 and [place] with BUN of 46, creatinine 1.2. Discussed case with ER physician, request admission for management of his electrolyte disturbances. Patient has known history of traumatic brain injury with lack of thirst drive. Continues to show improvement daily. Correcting at appropriate rate. Will discontinue IV fluids today and monitor for improvement with oral hydration. Problems addressed as follows: Hyperosmolality and hypernatremia Generalized weakness Hypodipsia/adipsia History of traumatic brain injury LOR[place]TA -Sodium 164, chloride 124 on presentation. Continues to trend down. 146 this morning. Improved from 151 yesterday evening. Correcting within the range of approximately 10 mEq every 24 hours. -Discontinue IV fluids, monitor for continued improvement/stability with oral hydration. Repeat BMP ordered for 6 PM, repeat CBC, magnesium, CMP ordered for the morning. -Phosphorus low: Replacing today. Phosphorus 1.9 this morning. Will replace both IV and oral. Repeat phosphorus level ordered for this evening. -Chloride slowly improving, 122 this morning. -Free water deficit of 6.3 L to achieve normal sodium of 140 at time of admission. - Correct at rate of 8 to 10 mEq/day. -Encourage p.o. fluid intake at least 2 L a day. -Strict I's and O's Nausea/vomiting: Unclear etiology of stomach bug versus symptoms due to hypernatremia versus other pathology. Showing improvement. No nausea or vomiting since admission. Tolerating p.o. intake. Having multiple bowel movements. Will discontinue bowel regimen. -Continue pantoprazole for GERD History of seizure disorder: Continue Keppra 500 mg twice daily per home regimen Bradycardia: Present on previous admissions. Chronic. Asymptomatic sinus bradycardia. No chest pain or discomfort. Discontinue telemetry. CAD: Holding aspirin and statin pending improvement in p.o. intake and electrolyte disturbances Constipation: Multiple bowel movements. Discontinue bowel regimen Lovenox for DVT prophylaxis On Protonix for GERD Regular diet Full code
[2024-05-11] MEDS: POTASSIUM PHOS IN 0.9 % NACL 15 MMOL/250 ML PIGGYBACK 62.5 MMOL IV (10:13)
[2024-05-11] MEDS: ONDANSETRON 4MG/2ML VIAL 4 MG IV (12:19)
[2024-05-11] MEDS: K-PHOS NEUTRAL 250MG TABLET 250 MG PO (17:09)
--- NOTE | 2024-05-11 18:39 | CT_ITS ---
PROCEDURE INFORMATION: Exam: CT Abdomen And Pelvis With Contrast Exam date and time: 05/11/2024 6:46 PM Age: 64 years old Clinical indication: Nausea and vomiting; Additional info: Weigth loss, nausea and vomiting TECHNIQUE: Imaging protocol: Computed tomography of the abdomen and pelvis with contrast. Radiation optimization: All CT scans at this facility use at least one of these dose optimization techniques: automated exposure control; mA and/or kV adjustment per patient size (includes targeted exams where dose is matched to clinical indication); or iterative reconstruction. Contrast material: ISOVUE; Contrast volume: 75 ml; Contrast route: IV; COMPARISON: CT ABDOMEN PELVIS WO/W CON 05/24/2021 10:39 AM FINDINGS: Pleural spaces: Trace bilateral pleural effusions. Liver: Subcentimeter hypodensities in the liver which are too small to accurately characterize but statistically likely to be benign. Gallbladder and biliary ducts: The gallbladder is nondistended. There are tiny layering gallstones. Pancreas: Normal. No ductal dilation. Spleen: Normal. No splenomegaly. Adrenal glands: Normal. No mass. Kidneys and ureters: Simple appearing right renal cortical cyst. No hydronephrosis or hydroureter. No solid renal mass. Stomach and bowel: Unremarkable. No obstruction. No mucosal thickening. Appendix: No evidence of appendicitis. Intraperitoneal space: Unremarkable. No free air. No significant fluid collection. Vasculature: Unremarkable. No abdominal aortic aneurysm. Lymph nodes: Unremarkable. No enlarged lymph nodes. Urinary bladder: Unremarkable as visualized. Reproductive: Unremarkable as visualized. Bones/joints: Unremarkable. No acute fracture. Soft tissues: Unremarkable. IMPRESSION: No acute intra-abdominal abnormality. Cholelithiasis. COMMENTS: Consistent with the [employer]'s Incidental Findings Committee white paper (J Am Alexandra Radiol 2018): Any incidental renal lesion less than 1 cm or classified as too small to characterize, or any incidental cystic renal lesion characterized as simple-appearing, is likely benign. No follow-up imaging is recommended for these lesions per consensus recommendations based on imaging criteria.
--- NOTE | 2024-05-11 19:49 | PC.NURSE ---
Patient left floor with Radiology staff at 19:48.
[2024-05-11] MEDS: SODIUM CHLORIDE 0.9% 10ML SYR (RAD ONLY) 10 ML IV (20:00)
[2024-05-11] MEDS: IOPAMIDOL-370 (76%);100ML BOTTLE 75 ML IV (20:01)
--- NOTE | 2024-05-11 20:02 | PC.NURSE ---
Patient returned to floor with staff from Radiology at 20:01.
[2024-05-11] MEDS: PANTOPRAZOLE 40MG TABLET 40 MG PO (20:23)
[2024-05-11 22:17] LABS: Chloride 114 mmol/L (98-107); Sodium 144 mmol/L (136-145)
[2024-05-11 22:18] LABS: Potassium 4.2 mmoL/L (3.5-5.1)
[2024-05-11 22:20] LABS: Anion Gap 6.2 mEq/L (5-15); Blood Urea Nitrogen 12 mg/dl (9-20); Carbon Dioxide 28 mmol/L (22.0-30.0); Creatinine Clearance Estimated 67 mL/min (50-200); Estimated Glomerular Filt Rate 114 ml/min (>60); GFR (African American) 138 ML/MIN (>60)
[2024-05-11 22:21] LABS: Calcium 7.9 mg/dl (8.4-10.2); Glucose 78 mg/dl (74-100); Phosphorous 3.1 mg/dl (2.5-4.5)
[2024-05-12] VITALS: BP 104/59; PULSE 53; RESP 16; TEMP 36.4; O2SAT 98
[2024-05-12 03:55] VITALS: BMI 20.4
--- NOTE | 2024-05-12 05:45 | PC.NURSE ---
Nurse ScratchJr alerted this nurse that pt had blood on his pillow, sheet and hand. This nurse noticed a moderate amount of blood in pts hair, pt has a open laceration to the back of the pts head, the laceration is noted to be approx. 1 in in size and is not actively bleeding. there appears to be no evidence of swelling, no bruising/discoloration, and no signs of trauma. laceration was dressed with a non adherent pad, gauze, and coban. Pt denies pain, denies any idea of how it happened. Pt is alert and oriented and denies dizziness. Pt nails are noted to have sharp edges and are unkept. Melvin Garcia APRN was notified, wound note is entered.
--- NOTE | 2024-05-12 05:53 | PC.WOUNDNOTE ---
open wound to back of head, approx 1 in
[2024-05-12 06:00] VITALS: BP 113/59; PULSE 52; TEMP 36.7; O2SAT 94
[2024-05-12 06:53] LABS: Basophils % 0.2 % (0.1-2.0); Eosinophils # 0.2 K/mm3 (0.0-0.4); Eosinophils % 1.9 % (0.1-12.0); Hematocrit 41.4 % (42.0-52.0); Hemoglobin 13.5 g/dL (14.1-18.0); Lymphocytes # 1.7 K/mm3 (0.7-4.5); Lymphocytes % 18.6 % (10-50); Mean Corpuscular HGB Conc 32.6 g/dL (31.8-35.4); Mean Corpuscular Hemoglobin 32.5 pg (27.0-31.2); Mean Corpuscular Volume 99.5 fl (80-94); Mean Platelet Volume 13.3 fl (7.4-10.4); Monocytes # 0.6 K/mm3 (0.1-1.0); Monocytes % 6.6 % (1.7-9.3); Neutrophils # 6.5 K/mm3 (1.8-7.8); Neutrophils % 72.5 % (37.0-80.0); Platelet Count 112 K/mm3 (142-424); Red Blood Count 4.16 M/mm3 (4.60-6.20); Red Cell Distribution Width 12.1 % (11.5-17.5)
[2024-05-12 07:16] LABS: Alanine Aminotransferase 31 U/L (12-78); Albumin/Globulin Ratio 1.2 (1.1-1.8); Alkaline Phosphatase 107 U/L (38-126); Anion Gap 3.6 mEq/L (5-15); Aspartate Amino Transferase 48 U/L (17-59); Bilirubin,Total 0.5 mg/dl (0.2-1.3); Blood Urea Nitrogen 10 mg/dl (9-20); Calcium 8.4 mg/dl (8.4-10.2); Carbon Dioxide 26 mmol/L (22.0-30.0); Chloride 119 mmol/L (98-107); Creatinine Clearance Estimated 67 mL/min (50-200); Estimated Glomerular Filt Rate 114 ml/min (>60); GFR (African American) 138 ML/MIN (>60); Globulin 2.5 g/dL (1.3-3.2); Glucose 77 mg/dl (74-100); Magnesium 1.9 mg/dl (1.6-2.3); Phosphorous 2.5 mg/dl (2.5-4.5); Potassium 3.6 mmoL/L (3.5-5.1); Sodium 145 mmol/L (136-145); Total Protein,Serum 5.5 g/dl (6.3-8.2)
[2024-05-12 08:00] VITALS: BP 118/73; PULSE 46; RESP 16; TEMP 36.4; O2SAT 95
[2024-05-12] MEDS: FAMOTIDINE 20MG TABLET 40 MG PO (08:53)
[2024-05-12] MEDS: SENNOSIDES 8.6MG/DOCUSATE 50MG TABLET 1 TAB PO (08:53)
[2024-05-12] MEDS: K-PHOS NEUTRAL 250MG TABLET 250 MG PO (08:55)
[2024-05-12] MEDS: levETIRAcetam 500 MG TABLET PO (08:55)
[2024-05-12] MEDS: DEXTROSE 5 % IN WATER 1,000 ML 125 ML IV (08:56)
--- NOTE | 2024-05-12 09:54 | SW/DCPLANNER ---
Per PT/OT no needs at this time.
--- NOTE | 2024-05-12 10:55 | HMH.OTEV ---
OT Inpatient Evaluation Rehab OT IP Evaluation Start: 05/12/24 07:08 Freq: ONCE Status: Active Protocol: Document 05/12/24 10:51 [facility] (Rec: 05/12/24 10:55 [facility] [id number]) Rehab OT IP Assessment Subjective History Pt oriented x 3 on arrival. Pt agreeable to engage in therapy evaluation. Pt admitted on 05/09/24 due to dehydration and hypernatremia. History and physical 64-year-old gentleman well- known to our facility for recurrent hypernatremia and due to history of traumatic brain injury and lack of thirst drive. Presented with a week of worsening p.o. intake. Sister helps supplement history. States he just has not felt like eating and has been nauseous for over a week. Has gotten more weak to the point he is not able to get up on his own. Has been vomiting intermittently when eating. States he can drink water and it does not feel like it is getting stuck or having difficulty. Food does not feel like it gets stuck either , he just does not have much of an appetite and is nauseous . On presentation to the ER, patient is fatigued, bradycardic (baseline). Stable on room air. Labs obtained showing significant electrolyte disturbances with sodium 164, chloride 124, kidney dysfunction with BUN elevated at 46 and creatinine 1.2. Serum osm 353. Medicine consulted for admission and further management due to free water deficit and hyponatremia. On evaluation in the ICU, patient is oriented to self and place. Slow to answer questions but able to respond. Denies any chest pain or shortness of breath. Does not know the last time he had a bowel movement. No abdominal discomfort on exam. Interested in trying some oral fluids. Of note, smokes a pack a day. Is a longtime smoker. Has never been worked up for other pathology of his abdomen/ stomach. Does have chronic history of GERD. Sister is concerned something more is going on and underlying his lack of p.o. intake. Subjective I just got sick. Prior to being in the hospital , pt lived at home with multiple family members. Pt claims normally he is independent with all ADLs such as dressing, bathing, and feeding. Family completes IADLs for him. Pt uses a rolling walker during functional transfers. Objective Patient Orientation Person,Place,Birthday Right Upper Extremity Gross ROM WFL Left Upper Extremity Gross ROM WFL Bed Mobility bed mobility-scooting,bed mobility - supine/sit Assist Level Supervision/Stand by Transfer Training Sit/Stand Transfer Assist Level Supervision/Stand by Chair Transfer Ability Supervision/Stand by Chair Transfer Technique Sit to/from Ambulatory Chair Transfer Assistive Devices Rolling Walker Lower Body Dressing Ability Standby Assistance Rehab OT IP prob,goals,plan Problems Date of Evaluation: 05/12/24 Rehab Potential Rehab Potential Innapropriate for Skilled Therapy Discharge Plan OT Discharge Plan Pt appears to be at his baseline with functional transfers and ADL independence . Pt can return home with family once he is medically stable per physician. Eval Complexity Eval Charge Codes 69100 - Moderate Complexity PHYSICIAN CERTIFICATION: I certify the specified therapy services for Rafa Driscoll JR are required, authorized, and reviewed every 30 days.
--- NOTE | 2024-05-12 11:05 | HMH.PTEV ---
Physical Therapy Evaluation Rehab PT IP Evaluation Start: 05/12/24 07:08 Freq: ONCE Status: Active Protocol: Document 05/12/24 10:58 [facility] (Rec: 05/12/24 11:05 [facility] [id number]) Subjective/History History History 64-year-old gentleman well- known to our facility for recurrent hypernatremia and due to history of traumatic brain injury and lack of thirst drive. Presented with a week of worsening p.o. intake. Sister helps supplement history. States he just has not felt like eating and has been nauseous for over a week. Has gotten more weak to the point he is not able to get up on his own. Has been vomiting intermittently when eating. States he can drink water and it does not feel like it is getting stuck or having difficulty. Food does not feel like it gets stuck either , he just does not have much of an appetite and is nauseous . He reports he lives with family, uses a RW for all ambulation, 1-2 ZURDO the home, and is generally independent with all ambulation using a RW . Subjective Subjective Pt has no c/o this am, reports feeling better, agrees to mobility assessment New diagnosis of cancer in past 12 No months? [facility] How much help from another person do you currently need... Turning from your back to your side None while in a flat bed without using bedrails? Moving from lying on back to sitting on None the side of a flat bed without using bedrails? Moving to and from a bed to a chair ( None including a wheelchair)? Standing up from a chair using your arms None ? (e.g., wheelchair, bedside chair) Walking in hospital room? None Climbing 3-5 steps with a railing? None Mobility Score 24 Mobility Level [facility] Mobility Calculator Mobility 8 Walk 250 feet or more Rehab PT IP Eval Objective Appearance Patient Behavior Appropriate Patient Orientation Person,Place,Time Difficulty following instructions none Speech Pattern Clear Ambulation Patient Able to Ambulate Yes Ambulation Observation IP General Gait Pattern Observation Shuffling Step Ambulation Distance (feet) 150 Ambulation Assistive Device Rolling Walker Ambulation Ability Independent Balance Ability to Arise Able, uses arms to help Sitting Balance Steady, safe Standing Balance Steady, wide stance Dynamic Sitting Balance Ability Good Dynamic Standing Balance Ability Good Transfers Bed Transfer Ability Independent Chair Transfer Ability Independent Sit to Stand Bed Transfer Ability Independent Sit to Stand Chair Transfer Ability Independent Rehab PT IP prob,goals,plan Problems Date of Evaluation: 05/12/24 Discharge Plan PT Discharge Plan Pt is currently appropriate to return home once medically stable for d/c. No current inpatient therapy needs. Eval Complexity Eval Charge Codes 80956 - High Complexity PHYSICIAN CERTIFICATION: I certify the specified therapy services for Rafa Driscoll JR are required, authorized, and reviewed every 30 days.
[2024-05-12 12:00] VITALS: BP 105/58; PULSE 42; RESP 16; TEMP 36.5; O2SAT 96
--- NOTE | 2024-05-12 14:13 | P.DS_ITS ---
General Admission date:: 05/09/24 Discharge date: 05/12/24 HPI HPI HPI: 64-year-old gentleman well-known to our facility for recurrent hypernatremia and due to history of traumatic brain injury and lack of thirst drive. Presented with a week of worsening p.o. intake. Sister helps supplement history. States he just has not felt like eating and has been nauseous for over a week. Has gotten more weak to the point he is not able to get up on his own. Has been vomiting intermittently when eating. States he can drink water and it does not feel like it is getting stuck or having difficulty. Food does not feel like it gets stuck either, he just does not have much of an appetite and is nauseous. On presentation to the ER, patient is fatigued, bradycardic (baseline). Stable on room air. Labs obtained showing significant electrolyte disturbances with sodium 164, chloride 124, kidney dysfunction with BUN elevated at 46 and creatinine 1.2. Serum osm 353. Medicine consulted for admission and further management due to free water deficit and hyponatremia. On evaluation in the ICU, patient is oriented to self and place. Slow to answer questions but able to respond. Denies any chest pain or shortness of breath. Does not know the last time he had a bowel movement. No abdominal discomfort on exam. Interested in trying some oral fluids. Of note, smokes a pack a day. Is a longtime smoker. Has never been worked up for other pathology of his abdomen/stomach. Does have chronic history of GERD. Sister is concerned something more is going on and underlying his lack of p.o. intake. Hospital Course Hospital Course Hospital Course: 64-year-old male with PMHx of moderate hypernatremia, traumatic brain injury, seizure, presented to the emergency department with weakness and nausea. Found to have elevated sodium at 164 and LORETTA with BUN of 46, creatinine 1.2. Discussed case with ER physician, request admission for management of his electrolyte disturbances. Patient has known history of traumatic brain injury with lack of thirst drive. Treated extensively during admission for free water deficit and hyponatremia. Showed gradual improvement at less than 8 to 10 mEq/day. Had improvement in mentation. Tolerating p.o. intake. Maintaining sodium status in a normal range without IV fluids for over 24 hours. Stable to discharge home with a goal of at least 2 L free water intake a day. Follow-up with PCP in 1 to 2 weeks for repeat labs and monitoring. Problems addressed as follows: Hyperosmolality and hypernatremia Generalized weakness Hypodipsia/adipsia History of traumatic brain injury LORETTA -Sodium 164, chloride 124 on presentation. Free water deficit calculated to be approximately 6.3 L. Slowly replaced free water deficit and correction of sodium at less than 8 to 10 mEq per 24-hour timeframe. Had gradual improvement. Sodium normalized to 145 by day of discharge. Remained less than 145 for over 24 hours off IV fluids. Kidney function improved as well with BUN and creatinine normal on day of discharge at 10 and 0.7 respectively. Had some low phosphorus initially due to poor p.o. intake. Replaced as needed. Stable on day of discharge of 2.5 with good nutritional intake. Chloride showing slow improvement, 119 on day of discharge. Down from 124 on admission. Overall doing well. Tolerating p.o. intake. Back to baseline mentation. Needs repeat CBC, CMP, magnesium and phosphorus in 1 to 2 weeks to monitor stability of electrolytes. Patient at continued risk for hyponatremia due to his history of TBI and his hypodipsia. Nausea/vomiting: Unclear etiology of stomach bug versus symptoms due to hypernatremia versus other pathology. Showing improvement. No nausea or vomiting for the first 72 hours of admission. Had some intermittent post prandial emesis. Increased GI/GERD prophylaxis and had resolution of his nausea or vomiting. Continue pantoprazole nightly and famotidine in the morning. May benefit from further evaluation as an outpatient with referral to GI for possible EGD if has persistent emesis. Does have risks for PUD or cancerous changes given long-term tobacco use disorder Scalp laceration: - Patient noted to have scalp laceration when bleeding was identified overnight on 05/11 to 05/12. Had a 1 inch laceration left occipital region. Reports he may have had a fall before he came in. Patient was in bed with seizure precautions/pads in place. Had blood on his hand. Noted to have very long jagged fingernails. Concerned that he may have cut his scalp versus open laceration that was already present. Had not had bleeding prior to night of the . Laceration evaluated morning of 05/12, decision made to proceed with irrigation and stabling. 3 rosana placed that need to be removed in 1 week. Recommend follow-up with PCP for removal and reevaluation. No signs of infection. No indication for antibiotics. Wound care precautions communicated to patient's caregiver (sister) History of seizure disorder: Continued Keppra 500 mg twice daily per home regimen, no seizures during admission Bradycardia: Present on previous admissions. Chronic. Asymptomatic sinus bradycardia. No chest pain or discomfort. Discontinue telemetry. CAD: Held aspirin and statin during admission, as mentation and PO intake improved, resume at discharge. Constipation: Multiple bowel movements after initiation of bowel regimen. continue PRN Total time spent on discharge 38 minutes in counseling, documentation, chart review, and direct care with patient. Exam Data for Last 24 hours Vital signs and Labs for Last 24 Hours: Temp Pulse Resp BP Pulse Ox O2 Del Method 97.7 F 42 L 16 105/58 L 96 Room Air 05/12/24 12:00 05/12/24 12:00 05/12/24 12:00 05/12/24 12:00 05/12/24 12:00 05/12/24 12:49 Laboratory Results - last 24 hr 05/11/24 22:00: Sodium 144, Potassium 4.2, Chloride 114 H, Carbon Dioxide 28, Anion Gap 6.2, BUN 12 D, Creatinine 0.70, Estimated Creat Clear 67, Estimated GFR 114, Est GFR ( Amer) 138, Glucose 78 D, Calcium 7.9 L, Phosphorus 3.1 D 05/12/24 06:21: WBC 9.0, RBC 4.16 L, Hgb 13.5 L, Hct 41.4 L, MCV 99.5 H, MCH 32.5 H, MCHC 32.6, RDW 12.1, Plt Count 112 L, MPV 13.3 H, Neut % (Auto) 72.5, Lymph % (Auto) 18.6, Story % (Auto) 6.6, Eos % (Auto) 1.9, Baso % (Auto) 0.2, Neut # (Auto) 6.5, Lymph # (Auto) 1.7, Story # (Auto) 0.6, Eos # (Auto) 0.2, Baso # (Auto) 0.0, Sodium 145, Potassium 3.6, Chloride 119 H, Carbon Dioxide 26, Anion Gap 3.6 L, BUN 10, Creatinine 0.70, Estimated Creat Clear 67, Estimated GFR 114, Est GFR ( Amer) 138, Glucose 77, Calcium 8.4, Phosphorus 2.5, Magnesium 1.9, Total Bilirubin 0.5, AST 48 D, ALT 31 D, Alkaline Phosphatase 107, Total Protein 5.5 L, Albumin 3.0 L, Globulin 2.5, Albumin/Globulin Ratio 1.2 I & O for Last 24 hours: Intake & Output 05/09/24 05/10/24 05/12/24 05/12/24 23:59 23:59 00:59 23:59 Intake Total 210 / 1546 4212 / 4212 1542 / 1782 520 / 520 Output Total 200 / 200 350 / 600 1020 / 1020 400 / 400 Balance 10 / 1346 3862 / 3612 522 / 762 120 / 120 Weight 57.606 kg 61.689 kg 62.596 kg 62.596 kg Microbiology Reports for the Last 24 Hours: Microbiology 05/09/24 16:18 Blood Blood Culture - Preliminary NO GROWTH AFTER 48 HOURS 05/09/24 16:18 Blood Blood Culture - Preliminary NO GROWTH AFTER 48 HOURS 05/09/24 17:55 Anus CRE Surveillance Culture - Final Constitutional Constitutional: no acute distress, thin, chronically ill appearing and cooperative *Routine HEENT Exam Head: Present normocephalic Eye: Present EOMI and PERRL ENT: Present mucous membranes moist *Routine Neck Exam Neck: Present supple; Absent lymphadenopathy *Routine Respiratory Exam Respiratory: Present CTA bilaterally; Absent rhonchi, wheezes or crackles *Routine Cardiovascular Exam Cardiovascular: Present RRR and bradycardia *Routine Abdominal Exam Abdominal: Present soft and normoactive bowel sounds; Absent tenderness *Routine Rectal Exam Patient deferred: visual exam *Routine Exam Patient deferred: penile exam *Routine Extremities Exam Extremities: Absent cyanosis, clubbing or edema *Routine Skin Exam Skin: Present warm; Absent rash *Routine Neurological Exam Neurological: Present alert, oriented X3 and moving all extremities; Absent altered mental status Results Data Completed and Pending Labs on day of discharge: Labs from last 24 hours 05/12/24 05/11/24 06:21 22:00 WBC 9.0 RBC 4.16 L Hgb 13.5 L Hct 41.4 L MCV 99.5 H MCH 32.5 H MCHC 32.6 RDW 12.1 Plt Count 112 L MPV 13.3 H Neut % (Auto) 72.5 Lymph % (Auto) 18.6 Story % (Auto) 6.6 Eos % (Auto) 1.9 Baso % (Auto) 0.2 Neut # (Auto) 6.5 Lymph # (Auto) 1.7 Story # (Auto) 0.6 Eos # (Auto) 0.2 Baso # (Auto) 0.0 Sodium 145 144 Potassium 3.6 4.2 Chloride 119 H 114 H Carbon Dioxide 26 28 Anion Gap 3.6 L 6.2 BUN 10 12 D Creatinine 0.70 0.70 Estimated Creat Clear 67 67 Estimated GFR 114 114 Est GFR ( Amer) 138 138 Glucose 77 78 D Calcium 8.4 7.9 L Phosphorus 2.5 3.1 D Magnesium 1.9 Total Bilirubin 0.5 AST 48 D ALT 31 D Alkaline Phosphatase 107 Total Protein 5.5 L Albumin 3.0 L Globulin 2.5 Albumin/Globulin Ratio 1.2 Preliminary micro results at discharge 05/09/24 16:18 Blood Culture - Preliminary Blood NO GROWTH AFTER 48 HOURS 05/09/24 16:18 Blood Culture - Preliminary Blood NO GROWTH AFTER 48 HOURS DS: Diagnosis Discharge Diagnosis (1) Hyperosmolality and hypernatremia: Status: Acute Code(s): E87.0 - Hyperosmolality and hypernatremia (2) Generalized weakness: Status: Acute Code(s): R53.1 - Weakness (3) LORETTA (acute kidney injury): Status: Resolved Code(s): N17.9 - Acute kidney failure, unspecified (4) History of traumatic brain injury: Status: Chronic Code(s): Z87.820 - Personal history of traumatic brain injury (5) Hypodipsia/adipsia: Status: Acute Code(s): E87.0 - Hyperosmolality and hypernatremia (6) Cognitive impairment: Status: Chronic Code(s): R41.89 - Other symptoms and signs involving cognitive functions and awareness (7) History of coronary atherosclerosis: Status: Chronic Code(s): Z86.79 - Personal history of other diseases of the circulatory system (8) Acute dehydration: Status: Resolved Code(s): E86.0 - Dehydration (9) Hypophosphatemia: Status: Resolved Code(s): E83.39 - Other disorders of phosphorus metabolism Meds Home Medications and Allergies Home Medications ?Medication ?Instructions ?Recorded ?Confirmed ?Type [id number]-[id number] oil-vit D3 300 1 cap PO DAILY 12/28/21 05/09/24 History mg-1,000 mg-1,000 unit capsule (Fish Oil-Vit D3) aspirin 81 mg tablet,delayed 81 mg PO DAILY 04/27/23 05/09/24 History release melatonin 10 mg tablet 20 mg PO HS 05/15/23 05/09/24 History levetiracetam 500 mg tablet 500 mg PO BID #180 tabs 07/09/23 05/09/24 Rx albuterol sulfate 90 mcg/actuation 2 puff inhalation Q4-6H PRN 01/14/24 05/09/24 Rx aerosol inhaler shortness of breath or wheezing #8.5 grams B-complex with vitamin C 1 cap PO DAILY 05/10/24 05/10/24 History atorvastatin 20 mg tablet 20 mg PO HS Cholesterol 05/10/24 05/10/24 History ondansetron 4 mg disintegrating 4 mg PO Q8HP PRN nausea and 05/10/24 05/10/24 History tablet vomiting famotidine 20 mg tablet 40 mg (2 x 20 mg) PO DAILY 30 days 05/12/24 Rx #60 tabs omeprazole 20 mg capsule,delayed 40 mg (2 x 20 mg) PO HS 30 days 05/12/24 Rx release #60 caps sennosides 8.6 mg-docusate sodium 1 tab PO DAILY 30 days #30 tabs 05/12/24 Rx 50 mg tablet (Stimulant Laxative Plus) New Prescriptions to Start Prescriptions: Lex Aguirre omeprazole Lex Saini sennosides-docusate sodium [Stimulant Laxative Plus] Lex Saini Allergies Allergy/AdvReac Type Severity Reaction Status Date / Time No Known Allergies Allergy Verified 05/06/24 13:52 Discharge Plan Disposition Patient Disposition: Home, Self-Care Condition: Good Discharge Order Discharge Orders: Discharge Order (Routine); Ordered 05/12/24 Ordered By: Lex Saini Follow up Plan Follow up with: Kyaw Lira MD [Primary Care Provider] - 05/19/24 10:30 am Prescriptions/Medication Reconciliation: New sennosides-docusate sodium [Stimulant Laxative Plus] 8.6-50 mg Tablet 1 tab PO DAILY 30 Days Qty: 30 0RF Rx Instructions: hold if having loose stools famotidine 20 mg Tablet 40 mg PO DAILY 30 Days Qty: 60 0RF Continued gx-3-rpn-epa-fish oil-vit D3 [Fish Oil-Vit D3] 300-1,000-1,000 mg-mg-unit capsule 1 cap PO DAILY melatonin 10 mg tablet 20 mg PO HS aspirin 81 mg tablet,delayed release (DR/EC) 81 mg PO DAILY albuterol sulfate 90 mcg/actuation HFA aerosol inhaler 2 puff inhalation Q4-6H PRN (Reason: shortness of breath or wheezing) Qty: 8.5 1RF levetiracetam 500 mg tablet 500 mg PO BID Qty: 180 3RF atorvastatin 20 mg tablet 20 mg PO HS ondansetron 4 mg tablet,disintegrating 4 mg PO Q8HP PRN (Reason: nausea and vomiting) B-complex with vitamin C Capsule 1 cap PO DAILY Changed omeprazole 20 mg capsule,delayed release(DR/EC) 40 mg PO HS 30 Days Qty: 60 0RF Patient Comments: TAKE 1 CAPSULE 1 TIME EACH DAY FOR ACID REFLUX Problem Reconciliation Problems Reviewed?: Yes Patient Discharge Instructions ACTIVITY: Continue current activity DIET: continue same diet Patient Instructions: DI for Dehydration -- Adult, DI for Hypernatremia Print Language: Ivorian Providers Primary Care Provider: Kyaw Lira Admit Provider: Lex Saini Attending Provider: Lex Saini
--- NOTE | 2024-05-14 10:39 | SW/DCPLANNER ---
Phoned patient x2. Left messages with call back number and name. Azul Dickinson
== END 2024-05-12 15:15 | disposition home or self-care (01) | DRG 641 ==
LOC: ER 16:06 → 2ND 17:10 → ICU 17:25 → 2ND 05-10 08:28 → ICU 05-10 08:28 → 2ND 05-11 13:37
PROVIDERS: Admitting Provider Internal Medicine Adolescent Medicine; Emergency Provider Emergency Medicine; PCP Family Medicine; Visit Provider Internal Medicine Adolescent Medicine
DX: E87.0 Hyperosmolality and hypernatremia (principal); E86.0 Dehydration; N17.9 Acute kidney failure, unspecified; R11.2 Nausea with vomiting, unspecified; R53.1 Weakness; R41.89 Other symptoms and signs involving cognitive functions and awareness; R63.8 Other symptoms and signs concerning food and fluid intake; E83.39 Other disorders of phosphorus metabolism; R00.1 Bradycardia, unspecified; F17.210 Nicotine dependence, cigarettes, uncomplicated; L60.2 Onychogryphosis; S01.01XA Laceration without foreign body of scalp, initial encounter; Y99.8 Other external cause status; K21.9 Gastro-esophageal reflux disease without esophagitis; K59.00 Constipation, unspecified; I25.10 Atherosclerotic heart disease of native coronary artery without angina pectoris; Z74.1 Need for assistance with personal care; Z86.79 Personal history of other diseases of the circulatory system; Z79.899 Other long term (current) drug therapy; Z87.820 Personal history of traumatic brain injury; Z55.6 Problems related to health literacy; Z79.82 Long term (current) use of aspirin; Z81.8 Family history of other mental and behavioral disorders; Z82.49 Family history of ischemic heart disease and other diseases of the circulatory system; Z83.438 Family history of other disorder of lipoprotein metabolism and other lipidemia; Z80.9 Family history of malignant neoplasm, unspecified; Z98.2 Presence of cerebrospinal fluid drainage device
CPT/HCPCS: 36415; 71045; 74177; 80048; 80053; 81001; 82570; 82803; 83735; 83880; 84100; 84484; 84540; 85025; 87040; 87081; 93005; 97163; 97166; 99291; J1650; J2405; J7060; Q9967

== ENCOUNTER 2024-05-19 15:25 | Outpatient (CLI) | payer MEDICARE, SELFPAY ==
[2024-05-19 17:05] LABS: Basophils % 0.4 % (0.1-2.0); Eosinophils # 0.2 K/mm3 (0.0-0.4); Eosinophils % 1.8 % (0.1-12.0); Hematocrit 44.2 % (42.0-52.0); Hemoglobin 13.9 g/dL (14.1-18.0); Lymphocytes # 2.6 K/mm3 (0.7-4.5); Lymphocytes % 25.4 % (10-50); Mean Corpuscular HGB Conc 31.4 g/dL (31.8-35.4); Mean Corpuscular Hemoglobin 32.3 pg (27.0-31.2); Mean Corpuscular Volume 102.8 fl (80-94); Mean Platelet Volume 12.1 fl (7.4-10.4); Monocytes # 0.7 K/mm3 (0.1-1.0); Monocytes % 6.5 % (1.7-9.3); Neutrophils # 6.7 K/mm3 (1.8-7.8); Neutrophils % 65.6 % (37.0-80.0); Platelet Count 195 K/mm3 (142-424); Red Cell Distribution Width 13.4 % (11.5-17.5); White Blood Count 10.2 K/mm3 (4.8-10.8)
[2024-05-19 17:25] LABS: Albumin Level 4.1 g/dl (3.5-5.0); Chloride 115 mmol/L (98-107); Potassium 3.6 mmoL/L (3.5-5.1)
[2024-05-19 17:28] LABS: Alanine Aminotransferase 25 U/L (12-78); Albumin/Globulin Ratio 1.6 (1.1-1.8); Alkaline Phosphatase 104 U/L (38-126); Anion Gap 11.6 mEq/L (5-15); Aspartate Amino Transferase 27 U/L (17-59); Bilirubin,Total 0.4 mg/dl (0.2-1.3); Blood Urea Nitrogen 29 mg/dl (9-20); Carbon Dioxide 28 mmol/L (22.0-30.0); Estimated Glomerular Filt Rate 98 ml/min (>60); GFR (African American) 118 ML/MIN (>60); Globulin 2.5 g/dL (1.3-3.2); Total Protein,Serum 6.6 g/dl (6.3-8.2)
[2024-05-19 17:34] LABS: Calcium 9.4 mg/dl (8.4-10.2); Glucose 120 mg/dl (74-100)
[2024-05-19 17:43] LABS: Sodium 151 mmol/L (136-145)
== END 2024-05-19 23:59 | disposition home or self-care (01) ==
LOC: LAB.DROPOF 05-21 08:45
PROVIDERS: PCP Family Medicine; Visit Provider Family Medicine
DX: E87.0 Hyperosmolality and hypernatremia (principal)
CPT/HCPCS: 80053; 85025

== ENCOUNTER 2024-05-22 10:41 | Outpatient (CLI) | payer MEDICARE, SELFPAY ==
[2024-05-22 12:06] LABS: Anion Gap 7.6 mEq/L (5-15); Blood Urea Nitrogen 26 mg/dl (9-20); Calcium 9.3 mg/dl (8.4-10.2); Carbon Dioxide 30 mmol/L (22.0-30.0); Chloride 111 mmol/L (98-107); Estimated Glomerular Filt Rate 85 ml/min (>60); GFR (African American) 103 ML/MIN (>60); Glucose 124 mg/dl (74-100); Potassium 3.6 mmoL/L (3.5-5.1); Sodium 145 mmol/L (136-145)
== END 2024-05-22 23:59 | disposition home or self-care (01) ==
LOC: LAB 10:42
PROVIDERS: PCP Family Medicine; Visit Provider Family Medicine
DX: E87.0 Hyperosmolality and hypernatremia (principal)
CPT/HCPCS: 36415; 80048

== ENCOUNTER 2024-09-06 16:16 | Inpatient (IN) | payer MEDICARE, SELFPAY ==
[2024-09-06] VITALS (11 sets, daily range): BP systolic 100–123; BP diastolic 58–74; PULSE 45–76; RESP 16–27; TEMP 36.6–37.1; O2SAT 95–97; BMI 17.7; BMI 17.6
--- NOTE | 2024-09-06 16:34 | ECG_ITS ---
APPROVED REPORT Exam: Resting ECG HR:75 bpm ECG Measurements Heart Rate 75 AXES FL 130 P 50 QRSd 100 QRS 59 QT 402 T 39 QTc 431 Conclusion SINUS RHYTHM POSSIBLE INFERIOR MYOCARDIAL INFARCTION , PROBABLY OLD [30 ms Q WAVE IN II/aVF] BORDERLINE ECG UNCONFIRMED REPORT Electronically signed by : Lex Rios, 09/06/2024 23:34:43
--- NOTE | 2024-09-06 16:34 | CT_ITS ---
PROCEDURE INFORMATION: Exam: CT Cervical Spine Without Contrast Exam date and time: 09/06/2024 5:29 PM Age: 64 years old Clinical indication: Injury or trauma; Fall; Blunt trauma; Additional info: Fall, injury TECHNIQUE: Imaging protocol: Computed tomography of the cervical spine without contrast. Radiation optimization: All CT scans at this facility use at least one of these dose optimization techniques: automated exposure control; mA and/or kV adjustment per patient size (includes targeted exams where dose is matched to clinical indication); or iterative reconstruction. COMPARISON: CT CERVICAL SPINE WO CON 04/20/2021 8:49 PM FINDINGS: Bones: Osseous alignment is normal. No acute fracture. Moderate degenerative changes of the atlantodental joint. Moderate multilevel bilateral facet arthropathy, disc bulge and uncovertebral spurring throughout the cervical spine. Lungs: Lung apices are normal. Soft tissues: Unremarkable. IMPRESSION: No acute fracture. Degenerative changes as noted.
--- NOTE | 2024-09-06 16:34 | CT_ITS ---
PROCEDURE INFORMATION: Exam: CT Head Without Contrast Exam date and time: 09/06/2024 5:27 PM Age: 64 years old Clinical indication: Injury or trauma; Fall; Blunt trauma (contusions or hematomas); Additional info: Fall, injury TECHNIQUE: Imaging protocol: Computed tomography of the head without contrast. Radiation optimization: All CT scans at this facility use at least one of these dose optimization techniques: automated exposure control; mA and/or kV adjustment per patient size (includes targeted exams where dose is matched to clinical indication); or iterative reconstruction. COMPARISON: MR HEAD/BRAIN WO/W CON 05/12/2021 9:33 AM FINDINGS: Brain: Mild generalized cerebral volume loss. No intracranial mass, hemorrhage or evidence of acute ischemia. Cerebral ventricles: Mild diffuse ventriculomegaly appears in proportion to the degree of renal atrophy. Ventricles appear clear. Paranasal sinuses: Visualized sinuses are unremarkable. No fluid levels. Mastoid air cells: Visualized mastoid air cells are well aerated. Bones: Unremarkable. No acute fracture. Soft tissues: Unremarkable. IMPRESSION: No acute intracranial abnormality
--- NOTE | 2024-09-06 16:34 | XR_ITS ---
PROCEDURE INFORMATION: Exam: XR Chest Exam date and time: 09/06/2024 5:32 PM Age: 64 years old Clinical indication: Dyspnea TECHNIQUE: Imaging protocol: Radiologic exam of the chest. Views: 1 view. Total images: 1 COMPARISON: CR XR CHEST PORTABLE 05/09/2024 3:29 PM FINDINGS: Tubes, catheters and devices: EKG leads are present. Lungs: Unremarkable. No consolidation. No pulmonary vascular congestion or edema. Pleural spaces: Unremarkable. No pleural effusion. No pneumothorax. Heart/Mediastinum: Unremarkable. No cardiomegaly. No mediastinal widening or hilar enlargement. Bones/joints: Minor broad-based thoracic dextrocurvature may be positional. IMPRESSION: No radiographically acute cardiopulmonary process.
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
--- OUTSIDE RECORDS SUMMARY | 2024-09-06 16:41 | XMS_ITS | Clinical Summary ---
Author Organization [facility] [place] [id number] Care Team Providers Care Top Lift Nailer Name Role Phone Unavailable Primary Care Provider Unavailabl e Social History Tobacco Use Types Packs/Day Years Used Date Smoking Tobacco: Never Assessed Sex and Gender Information Value Date Recorded Sex Assigned at Not on file Legal Sex Male 5:53 AM EDT Gender Identity Not on file Sexual Orientation Not on file Plan of Treatment Health Maintenance Due Date Last Done Comments Annual Wellness Exam 01/08/1963 Hepatitis C Screening 1979 DTaP/TDaP/Td (1 - Tdap) 01/08/1980 Cologuard 2006 Colon Cancer Screening 2006 Colonoscopy 2006 FIT 2006 Sigmoidoscopy 2006 Virtual Colonography 2006 Pneumococcal Vaccine 50+ (1 of 1 - PCV) 2011 Zoster (1 of 2) 2011 COVID-19 Vaccine (2023-2 5 season) 2023 Influenza Vaccine (#1) 2024 Hepatitis B Vaccine Aged Out No longe r eligible based on patient's age to complete this topic Meningococcal B Vaccine Aged Out No l onger eligible based on patient's age to complete this topic
[2024-09-06 16:43] LABS: Hematocrit 47.6 % (42.0-52.0); Hemoglobin 14.8 g/dL (14.1-18.0); Immature Granulocytes % 0.4 %; Mean Corpuscular HGB Conc 31.1 g/dL (31.8-35.4); Mean Corpuscular Hemoglobin 33.2 pg (27.0-31.2); Mean Corpuscular Volume 106.7 fl (80-94); Nucleated Red Blood Cells % 0 %; Platelet Count 128 K/mm3 (142-424); Red Blood Count 4.46 M/mm3 (4.60-6.20); Red Cell Distribution Width-SD 54.5 fL; White Blood Count 10.6 K/mm3 (4.8-10.8)
[2024-09-06] MEDS: LACTATED RINGERS 1000ML 1,000 ML 999 ML IV (16:46)
[2024-09-06 16:51] LABS: Alanine Aminotransferase 29 U/L (12-78); Albumin Level 4.5 g/dl (3.5-5.0); Albumin/Globulin Ratio 1.2 (1.1-1.8); Alkaline Phosphatase 84 U/L (38-126); Anion Gap 17.0 mEq/L (5-15); Aspartate Amino Transferase 54 U/L (17-59); Bilirubin,Total 1.1 mg/dl (0.2-1.3); Blood Urea Nitrogen 63 mg/dl (9-20); Calcium 9.8 mg/dl (8.4-10.2); Carbon Dioxide 27 mmol/L (22.0-30.0); Creatine Kinase 78 U/L (55-170); Creatinine Clearance Estimated 53 mL/min (50-200); Creatinine,Serum 1.10 mg/dl (0.66-1.25); Estimated Glomerular Filt Rate 68 ml/min (>60); GFR (African American) 82 ML/MIN (>60); Globulin 3.7 g/dL (1.3-3.2); Glucose 139 mg/dl (74-100); Potassium 4.0 mmoL/L (3.5-5.1); Total Protein,Serum 8.2 g/dl (6.3-8.2)
[2024-09-06 16:52] LABS: Magnesium 2.7 mg/dl (1.6-2.3); Phosphorous 2.2 mg/dl (2.5-4.5)
--- NOTE | 2024-09-06 16:57 | HMH.ITSTN ---
ER to call when pt is ready for scans
[2024-09-06 17:00] LABS: NT Pro Brain Natriuretic Pep. 56.7 pg/mL (0-125)
--- NOTE | 2024-09-06 17:12 | PC.NURSE ---
Purewick in place.
[2024-09-06 17:19] LABS: Troponin I < 0.01 ng/ml (0.00-0.034)
[2024-09-06 17:21] LABS: Chloride 128 mmol/L (98-107); Sodium 168 mmol/L (136-145)
[2024-09-06 17:22] LABS: Thyroid Stimulating Hormone 1.46 uIU/mL (0.465-4.68)
--- NOTE | 2024-09-06 17:39 | PC.NURSE ---
pt back from RAD
--- NOTE | 2024-09-06 17:46 | PC.NURSE ---
HS notified of the need for a bed to admit for severe dehydration to the hospitalist.
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
--- NOTE | 2024-09-06 17:58 | PC.NURSE ---
Report given to DOMINGA Palma
[2024-09-06] MEDS: DEXTROSE 5 % IN WATER 1,000 ML 80 ML IV (20:14)
[2024-09-06 20:35] LABS: Troponin I < 0.01 ng/ml (0.00-0.034)
[2024-09-06] MEDS: POTASSIUM PHOS IN 0.9 % NACL 15 MMOL/250 ML PIGGYBACK 62.5 MMOL IV (20:55)
[2024-09-06 20:57] LABS: Microscopic, Urine URINE MICROSCOPIC (MICROSCOPIC)
[2024-09-06] MEDS: PANTOPRAZOLE 40MG VIAL 40 MG IV (20:58)
[2024-09-06] MEDS: HEPARIN SODIUM 5,000 UNIT/ML VIAL 5000 UNIT SUBCUT (20:58)
[2024-09-06 21:19] LABS: Bilirubin,Urine Negative (Negative); Color,Urine YELLOW (Yellow); Glucose,Urine (UA) Negative (Negative); Ketones,Urine Negative (Negative); Leukocyte Esterase,Urine Negative (Negative); PH,Urine 6.0 (5.0-8.5); Protein,Urine TRACE (Negative); Specific Gravity, Urine 1.020 (1.005-1.030); Urobilinogen,Urine 0.2 EU/dl (0.2)
[2024-09-06 22:02] LABS: Bacteria,Urine Trace /lpf; Calcium Oxalate Crystals,Urine 1+ /lpf; Squamous Epithelial Cell,Urine Occasional #/hpf (0-5); WBC,Urine Occasional #/hpf (0-3)
[2024-09-06 23:12] LABS: Calcium 9.0 mg/dl (8.4-10.2); Chloride 125 mmol/L (98-107); Glucose 118 mg/dl (74-100)
[2024-09-06 23:16] LABS: Anion Gap 10.5 mEq/L (5-15); Blood Urea Nitrogen 57 mg/dl (9-20); Carbon Dioxide 30 mmol/L (22.0-30.0); Creatinine Clearance Estimated 58 mL/min (50-200); Creatinine,Serum 0.90 mg/dl (0.66-1.25); Estimated Glomerular Filt Rate 85 ml/min (>60); GFR (African American) 103 ML/MIN (>60); Potassium 3.5 mmoL/L (3.5-5.1)
[2024-09-06 23:23] LABS: Sodium 162 mmol/L (136-145)
[2024-09-06 23:28] LABS: Troponin I < 0.01 ng/ml (0.00-0.034)
[2024-09-07] VITALS (65 sets, daily range): BP systolic 80–135; BP diastolic 41–66; PULSE 38–58; RESP 10–27; TEMP 36.4–37.1; O2SAT 68–100; BMI 17.9
[2024-09-07] MEDS: DEXTROSE 5 % IN WATER 1,000 ML 50 ML IV (00:28)
[2024-09-07] MEDS: SODIUM CHLORIDE 0.45 % 250 ML IV (01:43)
[2024-09-07] MEDS: NOREPINEPHRINE BITARTRATE/D5W 8 MG/250 ML PLAST..BAG 15 MG IV (06:28)
--- OUTSIDE RECORDS SUMMARY | 2024-09-07 07:47 | XMS_ITS | Clinical Summary ---
Author Organization [facility] [place] [id number] Care Team Providers Care [employer] Name Role Phone Unavailable Primary Care Provider [...]
[2024-09-07 08:27] LABS: Alanine Aminotransferase 22 U/L (12-78); Albumin Level 3.7 g/dl (3.5-5.0); Albumin/Globulin Ratio 1.2 (1.1-1.8); Alkaline Phosphatase 96 U/L (38-126); Anion Gap 13.4 mEq/L (5-15); Aspartate Amino Transferase 61 U/L (17-59); Bilirubin,Total 1.6 mg/dl (0.2-1.3); Blood Urea Nitrogen 50 mg/dl (9-20); Calcium 8.4 mg/dl (8.4-10.2); Carbon Dioxide 24 mmol/L (22.0-30.0); Chloride 122 mmol/L (98-107); Creatinine Clearance Estimated 59 mL/min (50-200); Creatinine,Serum 0.80 mg/dl (0.66-1.25); Estimated Glomerular Filt Rate 98 ml/min (>60); GFR (African American) 118 ML/MIN (>60); Globulin 3.0 g/dL (1.3-3.2); Glucose 138 mg/dl (74-100); Magnesium 2.3 mg/dl (1.6-2.3); Potassium 3.4 mmoL/L (3.5-5.1); Total Protein,Serum 6.7 g/dl (6.3-8.2)
--- NOTE | 2024-09-07 08:30 | P.PN_ITS ---
Subjective *Date: 09/07/24 *Time: 14:17 Interval history: Pleasant this morning on exam. Stable on room air. Necessitated initiation of Levophed overnight due to hypotension and bradycardia. Has had significant bradycardia in the past, consistently sinus bradycardia. Tolerating p.o. fl uids. Afebrile. No nausea or vomiting. At baseline mentation today Medical Exam Vital signs and Labs for Last 24 Hours: Vital Signs Temp Pulse Pulse Pulse Resp BP BP 09/07/24 08:00 97.9 F 55 L 24 129/53 L 09/07/24 07:55 97.9 F 54 L 21 135/66 09/07/24 07:30 49 L 27 H 122/52 L 09/07/24 07:26 56 L 10 L 107/59 L 09/07/24 07:20 45 L 23 120/55 L 09/07/24 07:15 47 L 24 125/63 09/07/24 07:10 48 L 19 117/49 L 09/07/24 07:05 45 L 24 128/62 09/07/24 07:00 45 L 26 H 126/53 L 09/07/24 07:00 09/07/24 06:56 54 L 13 102/51 L 09/07/24 06:56 49 L 27 H 102/51 L 09/07/24 06:50 47 L 12 122/58 L 09/07/24 06:50 43 L 25 H 122/58 L 09/07/24 06:46 51 L 21 107/46 L 09/07/24 06:46 56 L 18 107/46 L 09/07/24 06:45 40 L 27 H 09/07/24 06:41 48 L 13 95/41 L 09/07/24 06:41 48 L 20 95/41 L 09/07/24 06:35 41 L 21 121/49 L 09/07/24 06:35 47 L 24 121/49 L 09/07/24 06:23 45 L 21 89/49 L 09/07/24 06:00 40 L 21 84/45 L 09/07/24 05:00 42 L 21 91/50 L 09/07/24 05:00 09/07/24 05:00 97.7 F 43 L 14 91/50 L 09/07/24 04:18 45 L 22 09/07/24 04:00 45 L 07/06/25 04:00 09/07/24 04:00 45 L 09/07/24 04:00 97.7 F 46 L 16 97/45 L 09/07/24 03:00 09/07/24 03:00 38 L 16 98/49 L 09/07/24 02:00 41 L 16 97/50 L 09/07/24 01:00 42 L 21 85/47 L 09/07/24 01:00 09/07/24 00:00 97.6 F 42 L 21 91/50 L 09/07/24 00:00 09/06/24 23:02 09/06/24 23:00 45 L 23 100/59 L 09/06/24 22:00 49 L 22 115/58 L 09/06/24 21:00 111/68 09/06/24 21:00 55 L 19 111/68 09/06/24 21:00 09/06/24 20:00 97.8 F 52 L 27 H 09/06/24 20:00 09/06/24 20:00 09/06/24 19:00 09/06/24 19:00 57 L 09/06/24 18:37 98.7 F 59 L 18 105/68 L 09/06/24 18:30 52 L 09/06/24 18:00 59 L 105/68 L 09/06/24 17:00 65 18 110/68 09/06/24 16:34 98.5 F 76 16 122/74 09/06/24 16:30 70 16 123/74 Pulse Ox O2 Del Method 09/07/24 08:00 96 Room Air 09/07/24 07:55 94 L Room Air 09/07/24 07:30 94 L Room Air 09/07/24 07:26 91 L Room Air 09/07/24 07:20 93 L Room Air 09/07/24 07:15 93 L Room Air 09/07/24 07:10 94 L Room Air 09/07/24 07:05 94 L Room Air 09/07/24 07:00 95 Room Air 09/07/24 07:00 Room Air 09/07/24 06:56 93 L Room Air 09/07/24 06:56 95 Room Air 09/07/24 06:50 96 Room Air 09/07/24 06:50 95 Room Air 09/07/24 06:46 94 L Room Air 09/07/24 06:46 94 L Room Air 09/07/24 06:45 95 Room Air 09/07/24 06:41 96 Room Air 09/07/24 06:41 96 Room Air 09/07/24 06:35 96 Room Air 09/07/24 06:35 97 Room Air 09/07/24 06:23 98 Room Air 09/07/24 06:00 96 Room Air 09/07/24 05:00 94 L 09/07/24 05:00 Room Air 09/07/24 05:00 93 L Room Air 09/07/24 04:18 96 Room Air 09/07/24 04:00 09/07/24 04:00 Room Air 09/07/24 04:00 09/07/24 04:00 93 L Room Air 09/07/24 03:00 Room Air 09/07/24 03:00 95 Room Air 09/07/24 02:00 95 Room Air 09/07/24 01:00 97 Room Air 09/07/24 01:00 Room Air 09/07/24 00:00 97 Room Air 09/07/24 00:00 Room Air 09/06/24 23:02 Room Air 09/06/24 23:00 96 Room Air 09/06/24 22:00 95 Room Air 09/06/24 21:00 09/06/24 21:00 97 Room Air 09/06/24 21:00 Room Air 09/06/24 20:00 95 Room Air 09/06/24 20:00 Room Air 09/06/24 20:00 Room Air 09/06/24 19:00 Room Air 09/06/24 19:00 09/06/24 18:37 Room Air 09/06/24 18:30 95 Room Air 09/06/24 18:00 97 Room Air 09/06/24 17:00 95 09/06/24 16:34 96 Room Air 09/06/24 16:30 95 Intake and Output 09/06/24 09/07/24 09/07/24 23:59 07:59 15:59 Intake Total 1045.3 / 1070.3 25 / 1070.3 Output Total 400 / 400 0 / 0 Balance -400 / -160 1045.3 / 1070.3 25 / 1070.3 Intake: Intake, Oral Amount 25 / 25 Intake, Oral Supplement Amount 240 / 240 Intake, Total IV Amount 805.3 / 805.3 Dextrose 5 % in Water 1,000 ml 150 / 150 @ 50 mls/hr IV .Q20H REPLACED BY [facility] Rx#: [id number] Dextrose 5 % in Water 1,000 ml 382 / 382 @ 80 mls/hr IV .[id number] REPLACED BY [facility] Rx# :[id number] Potassium Phos in 0.9 % NaCl 15 250 / 250 mmol In 250 ml @ 62.5 mls/hr IV ONCE ONE Rx#:[id number] Output: Output, Urine Amount 400 / 400 0 / 0 Other: Number of Unmeasured Voids 0 1 Weight 54.034 kg 54.703 kg Patient Weight 09/07/24 23:59 Weight 54.703 kg Laboratory Results - last 24 hr 09/06/24 16:30: WBC 10.6, RBC 4.46 L, Hgb 14.8, Hct 47.6, MCV 106.7 H, MCH 33.2 H, MCHC 31.1 L, RDW 13.8, Plt Count 128 L, MPV 14.0 H, Neut % (Auto) 51.7, Lymph % (Auto) 39.2, [place] % (Auto) 7.0, Eos % (Auto) 1.4, Baso % (Auto) 0.3, Neut # (Auto) 5.5, Lymph # (Auto) 4.2, [place] # (Auto) 0.7, Eos # (Auto) 0.2, Baso # (Auto) 0.0, Sodium 168 H*, Potassium 4.0, Chloride 128 H, Carbon Dioxide 27, Anion Gap 17.0 H, BUN 63 H, Creatinine 1.10, Estimated Creat Clear 53, Estimated GFR 68, Est GFR ( Amer) 82, Glucose 139 H, Calcium 9.8, Phosphorus 2.2 L, Magnesium 2.7 H, Total Bilirubin 1.1, AST 54, ALT 29, Alkaline Phosphatase 84, Total Creatine Kinase 78, Troponin I < 0.01, NT-Pro-B Natriuret Pep 56.7, Total Protein 8.2, Albumin 4.5, Globulin 3.7 H, Albumin/Globulin Ratio 1.2, TSH 1.46 09/06/24 19:59: Troponin I < 0.01 07/05/25 20:15: Urine Color Yellow, Urine Appearance Clear, Urine pH 6.0, Ur Specific [place] 1.020, Urine Protein Trace, Urine Glucose (UA) Negative, Urine Ketones Negative, Urine Blood Negative, Urine Nitrate Negative, Urine Bilirubin Negative, Urine Urobilinogen 0.2, Ur Leukocyte Esterase Negative, Urine WBC Occasional, Ur Squamous Epith Cells Occasional, Calcium Oxalate Crystal 1+, Urine Bacteria Trace 09/06/24 22:50: Sodium 162 H*, Potassium 3.5, Chloride 125 H, Carbon Dioxide 30, Anion Gap 10.5, BUN 57 H, Creatinine 0.90, Estimated Creat Clear 58, Estimated GFR 85, Est GFR ( Amer) 103 D, Glucose 118 H, Calcium 9.0, Troponin I < 0.01 I & O for Labs for Last 24 Hours: Intake & Output 09/04/24 09/05/24 09/06/24 09/07/24 23:59 23:59 23:59 23:59 Intake Total 1070.3 / 1070.3 Output Total 400 / 400 0 / 0 Balance -400 / -160 1070.3 / 1070.3 Weight 54.034 kg 54.703 kg Constitutional: Present no acute distress, cachectic, chronically ill appearing and cooperative Head: Present atraumatic and normocephalic ENT: Present normal exam Neck: Present normal inspection Respiratory: Present normal respiratory effort; Absent rhonchi, wheezes or crackles Cardiac: Present Regular Rhythm and Bradycardia GI: Present normal bowel sounds; Absent tenderness Extremities: Present normal inspection and full ROM Skin: Present intact; Absent erythema Neuro: Present Grossly Intact, alert, awake and moves all extremities Comment:: Oriented to self and place, little bit more energetic and interactive today. Assessment and Plan *Assessment and plan (1) Hyperosmolality and hypernatremia: Status: Acute Category: Medical Code(s): E87.0 - Hyperosmolality and hypernatremia (2) Fall: Status: Acute Category: Medical Code(s): W19.XXXA - Unspecified fall, initial encounter (3) Acute dehydration: Status: Resolved Category: Medical Code(s): E86.0 - Dehydration (4) Generalized weakness: Status: Acute Category: Medical Code(s): R53.1 - Weakness (5) LORETTA (acute kidney injury): Status: Resolved Category: Medical Code(s): N17.9 - Acute kidney failure, unspecified (6) Minor head injury: Status: Acute Category: Medical Code(s): S09.90XA - Unspecified injury of head, initial encounter (7) Hypophosphatemia: Status: Resolved Category: Medical Code(s): E83.39 - Other disorders of phosphorus metabolism (8) History of traumatic brain injury: Status: Chronic Category: Medical Code(s): Z87.820 - Personal history of traumatic brain injury (9) Hypodipsia/adipsia: Status: Acute Category: Medical Code(s): E87.0 - Hyperosmolality and hypernatremia (10) History of coronary atherosclerosis: Status: Chronic Category: Medical Code(s): Z86.79 - Personal history of other diseases of the circulatory system (11) 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 Category: Medical Code(s): R41.89 - Other symptoms and signs involving cognitive functions and awareness; S06.9XAS - Unspecified intracranial injury with loss of consciousness status unknown, sequela (12) Diabetes insipidus: Status: Chronic Category: Medical Code(s): E23.2 - Diabetes insipidus (13) Severe protein-calorie malnutrition: Status: Acute Category: Medical Code(s): E43 - Unspecified severe protein-calorie malnutrition (14) Bradycardia: Status: Chronic Category: Medical Code(s): R00.1 - Bradycardia, unspecified Plan 64-year-old male with PMHx of moderate hypernatremia, traumatic brain injury, seizure, presented to the emergency department with weakness and nausea. Found to have elevated sodium at 168 and LORETTA with BUN of 63, cr 1.1. Discussed case with ER physician, request admission for management of his electrolyte di sturbances. Patient has known history of traumatic brain injury with lack of thirst drive. High risk for cerebral edema if correction rate is too fast. Necessitating close monitoring in the ICU. Sodium slowly correcting. Problems addressed as follows: Hyperosmolality and hypernatremia Generalized weakness Hypodipsia/adipsia History of traumatic brain injury LORETTA Hypophosphatemia -Sodium 168, chloride 128 on presentation. Improved to 156 this morning. Chloride 122. Discontinue D5 for now. Monitor sodium every 8 hours. Continue p.o. free water intake. - Free water deficit calculated at 6.5 L for goal sodium of 140. Correction rate of 8 to 10 mEq/day -Repeat CBC, CMP, magnesium ordered to the morning. - Phosphorus 2.8, magnesium 2.3, potassium 3.4. Cautiously replacing - Strict I's and O's - Patient did have a fall, CT head obtained, per my review no acute findings. Does not appear to have a bleed. - Kidney function stable, improving BUN down from 63 on admission to 50 this m orning. Creatinine 0.8. Urine quite concentrated on general appearance. No active nausea at this time. Initiated on Zofran 4 mg IV every 8 hours as needed. Will continue pantoprazole 40 mg HS and resume home famotidine daily as well. Advance diet as tolerated - Will consider further evaluation of esophagus and stomach if unable to tolerate p.o. intake due to previous presentations with similar p.o. intolerance, dyspepsia, nausea and vomiting. CAD: Holding aspirin and statin pending improvement in p.o. intake and electrolyte disturbances Bradycardia: Present on previous admissions. Chronic. Asymptomatic sinus bradycardia. No chest pain or discomfort. - Was hypotensive overnight. On Levophed initially. Goal SBP greater than 90 or MAP greater than 60. Able to wean off Levophed this morning. History of seizure disorder: Continue Keppra 500 mg twice daily per home regimen Historically on previous visits has had a difficult time with bowel movements d ue to his dehydration. Initiated on MiraLAX daily and docusate daily. Heparin subcu 5000 units 3 times daily for DVT prophylaxis On Protonix for GERD Regular diet Full code ICU/Critical care attestation This patient is critically ill with 35 minutes devoted solely to this patient managing life/organ supporting interventions that required physician assessment. This includes time spent making adjustments in ventilator settings, IV fluid administration, titration of pressors, adjustments of medications, discussion of patient with consultants and other care providers as well as updating patient and/or family (if patient by virtue of his/her condition is unable to participate in decision making). This does not include time spent performing separately billed procedures. Time is not concurrent with that of other providers.
[2024-09-07 08:38] LABS: Phosphorous 2.8 mg/dl (2.5-4.5)
[2024-09-07 08:39] LABS: Sodium 156 mmol/L (136-145)
--- NOTE | 2024-09-07 08:51 | PC.NURSE ---
Per Dr. Saini, IV D5W stopped at this time. Primary RN notified of patients K of 3.4. No new orders received. Continuation of care plan.
[2024-09-07] MEDS: DOCUSATE SODIUM 100 MG CAPSULE PO (08:54)
[2024-09-07] MEDS: FAMOTIDINE 20MG TABLET 40 MG PO (08:54)
[2024-09-07] MEDS: POLYETHYLENE GLYCOL 3350 17 GM PACKET PO (08:55)
[2024-09-07] MEDS: HEPARIN SODIUM 5,000 UNIT/ML VIAL 5000 UNIT SUBCUT ×3 (08:57→21:36)
[2024-09-07] MEDS: NICOTINE 21MG/24HR PATCH 21 MG TD (09:50)
--- NOTE | 2024-09-07 10:18 | HMH.PHAINT1 ---
Pharmacy Intervention Comments: MEDICATION RECONCILIATION COMPLETED ON PATIENT USING EXTERNAL FILL HISTORY FROM PHARMACY. -MARCELA BLOOM, [place]
[2024-09-07 11:00] LABS: Hematocrit 39.6 % (42.0-52.0); Immature Granulocytes % 0.2 %; Mean Corpuscular HGB Conc 32.1 g/dL (31.8-35.4); Mean Corpuscular Hemoglobin 33.3 pg (27.0-31.2); Mean Corpuscular Volume 103.9 fl (80-94); Nucleated Red Blood Cells % 0 %; Platelet Count 110 K/mm3 (142-424); Red Blood Count 3.81 M/mm3 (4.60-6.20); Red Cell Distribution Width-SD 50.9 fL; White Blood Count 10.4 K/mm3 (4.8-10.8)
[2024-09-07 11:09] LABS: Hemoglobin 12.7 g/dL (14.1-18.0)
[2024-09-07] MEDS: ONDANSETRON 4MG/2ML VIAL 4 MG IV ×2 (12:15→20:11)
[2024-09-07 14:31] LABS: Anion Gap 10.3 mEq/L (5-15); Blood Urea Nitrogen 41 mg/dl (9-20); Calcium 8.1 mg/dl (8.4-10.2); Carbon Dioxide 31 mmol/L (22.0-30.0); Chloride 115 mmol/L (98-107); Creatinine Clearance Estimated 59 mL/min (50-200); Creatinine,Serum 0.80 mg/dl (0.66-1.25); Estimated Glomerular Filt Rate 98 ml/min (>60); GFR (African American) 118 ML/MIN (>60); Glucose 100 mg/dl (74-100); Potassium 3.3 mmoL/L (3.5-5.1)
[2024-09-07 14:32] LABS: Sodium 153 mmol/L (136-145)
[2024-09-07] MEDS: LACTATED RINGERS 1000ML 1,000 ML 100 ML IV (15:07)
[2024-09-07] MEDS: POTASSIUM CHLORIDE 20MEQ TAB 40 MEQ PO (15:08)
[2024-09-07] MEDS: PANTOPRAZOLE 40MG VIAL 40 MG IV (21:36)
[2024-09-07] MEDS: MIDODRINE HCL 5 MG TABLET PO (21:36)
[2024-09-07 22:37] LABS: Anion Gap 9.6 mEq/L (5-15); Blood Urea Nitrogen 33 mg/dl (9-20); Calcium 8.1 mg/dl (8.4-10.2); Carbon Dioxide 30 mmol/L (22.0-30.0); Chloride 113 mmol/L (98-107); Creatinine Clearance Estimated 59 mL/min (50-200); Creatinine,Serum 0.80 mg/dl (0.66-1.25); Estimated Glomerular Filt Rate 98 ml/min (>60); GFR (African American) 118 ML/MIN (>60); Glucose 113 mg/dl (74-100); Potassium 3.6 mmoL/L (3.5-5.1); Sodium 149 mmol/L (136-145)
[2024-09-08] VITALS (39 sets, daily range): BP systolic 64–126; BP diastolic 32–68; PULSE 38–77; RESP 12–26; TEMP 36.4–36.7; O2SAT 89–100; BMI 17.9
[2024-09-08] MEDS: LACTATED RINGERS 1000ML 500 ML 999 ML IV (02:33)
[2024-09-08] MEDS: NOREPINEPHRINE BITARTRATE/D5W 8 MG/250 ML PLAST..BAG 15 MG IV (05:26)
[2024-09-08 07:30] LABS: Hematocrit 39.3 % (42.0-52.0); Hemoglobin 13.0 g/dL (14.1-18.0); Immature Granulocytes % 0.3 %; Mean Corpuscular HGB Conc 33.1 g/dL (31.8-35.4); Mean Corpuscular Hemoglobin 33.1 pg (27.0-31.2); Mean Corpuscular Volume 100.0 fl (80-94); Nucleated Red Blood Cells % 0 %; Platelet Count 126 K/mm3 (142-424); Red Blood Count 3.93 M/mm3 (4.60-6.20); Red Cell Distribution Width-SD 47.0 fL; White Blood Count 11.9 K/mm3 (4.8-10.8)
[2024-09-08 07:40] LABS: Alanine Aminotransferase 23 U/L (12-78); Albumin Level 3.3 g/dl (3.5-5.0); Albumin/Globulin Ratio 1.2 (1.1-1.8); Alkaline Phosphatase 115 U/L (38-126); Anion Gap 10.3 mEq/L (5-15); Aspartate Amino Transferase 34 U/L (17-59); Bilirubin,Total 1.0 mg/dl (0.2-1.3); Blood Urea Nitrogen 26 mg/dl (9-20); Calcium 8.4 mg/dl (8.4-10.2); Carbon Dioxide 29 mmol/L (22.0-30.0); Chloride 112 mmol/L (98-107); Creatinine Clearance Estimated 58 mL/min (50-200); Creatinine,Serum 0.70 mg/dl (0.66-1.25); Estimated Glomerular Filt Rate 114 ml/min (>60); GFR (African American) 138 ML/MIN (>60); Globulin 2.7 g/dL (1.3-3.2); Glucose 116 mg/dl (74-100); Magnesium 2.1 mg/dl (1.6-2.3); Potassium 3.3 mmoL/L (3.5-5.1); Sodium 148 mmol/L (136-145); Total Protein,Serum 6.0 g/dl (6.3-8.2)
[2024-09-08] MEDS: LACTATED RINGERS 1000ML 1,000 ML 150 ML IV ×3 (08:21→20:41)
[2024-09-08 08:22] LABS: Phosphorous 2.3 mg/dl (2.5-4.5)
[2024-09-08] MEDS: HEPARIN SODIUM 5,000 UNIT/ML VIAL 5000 UNIT SUBCUT ×3 (08:22→20:34)
[2024-09-08] MEDS: DOCUSATE SODIUM 100 MG CAPSULE PO (08:23)
[2024-09-08] MEDS: MIDODRINE HCL 5 MG TABLET 10 MG PO ×3 (08:23→20:33)
[2024-09-08] MEDS: FAMOTIDINE 20MG TABLET 20 MG PO (08:23)
[2024-09-08] MEDS: POLYETHYLENE GLYCOL 3350 17 GM PACKET PO (08:25)
--- NOTE | 2024-09-08 08:30 | PC.NURSE ---
pt/ot at bedside.
--- NOTE | 2024-09-08 09:33 | HMH.OTEV ---
OT Inpatient Evaluation Rehab OT IP Evaluation Start: 09/08/24 07:30 Freq: ONCE Status: Active Protocol: Document 09/08/24 09:26 FANTASMA (Rec: 09/08/24 09:33 FANTASMA [id number]) Rehab OT IP Assessment Subjective History Per HPI narrative: Patient is a 64-year-old male with a history of a traumatic brain injury 20 years ago since that time he had epilepsy and significant dehydration events where he comes to the hospital for hyperosmolarity and hyponatremia and presents today with a similar presentation according to his sister and father who are at the bedside. Patient himself is a very poor historian at baseline and is unable to provide a significant history. They state that his symptoms have significantly worsened over the last 2 weeks both from a thirst drive but also from intolerance with some nausea and vomiting. They believe he is lost about 20 pounds over the last several weeks. He denies any pain etc. Family states that he has gotten so weak that he cannot even walk with a walker he has fallen multiple times and hit his head yesterday. Patient denies any complaints at the moment. Subjective Did I do good? Pt supine in bed when therapy arrived. pt agreed to participate in initial OT eval. pt orient x3. pt reported they live in trailer with dad and have 8 steps with HR. pt reports they use a RW for functional mobility. pt reports they have shower chair and grab bars. pt reports they still drive at times. pt reports they are ind in ADLs and Dad completes IADLs. pt reports they are not normally on O2 at baseline. Pt agreed to complete a STS and functional mobility task. Pt went from supine to EOB with SBA. Pt then completed a STS with CGA. Pt completed functional mobility task of aprox 5 ft with CGA. pt presents with unsteady balance and use of furniture for support. Pt then sat back on EOB. Pt then went from EOB to supine in bed with SBA. Pt left supine in bed with call light and all other needs within reach. Objective Patient Orientation Person,Place,Birthday Right Upper WFL Extremity Gross ROM Left Upper Extremity WFL Gross ROM Bed Mobility bed mobility-scooting,bed mobility - supine/sit Assist Level Supervision/Stand by Transfer Training Sit/Stand Transfer Assist Level Contact Guard/Hand Hold Chair Transfer Sit to/from Ambulatory Technique Decrease in Yes Endurance Rehab OT IP prob,goals,plan Problems Date of Evaluation: 09/08/24 OT IP Problems Bed Mobility,Transfers,Balance,Self care,Safety Rehab Potential Rehab Potential Good Equipment Needs Assistive Devices Rolling / Wheeled Walker Plan OT intervention Plan Bed Mobility,Transfers,Balance,Self care,Safety, Therapeutic Exercise OT Plan Frequency Daily Duration LOS Discharge Goals Bed Mobility Ability Standby Assistance Sit to Stand Chair Supervision/Stand by Transfer Ability Chair Transfer Supervision/Stand by Ability Chair Transfer Sit to/from Ambulatory Technique Chair Transfer Rolling Walker Assistive Devices Feeding Ability Assist with Tray Set Up Commode/Toilet Toilet Rails,Grab Bars Transfer Assistive Devices Decrease in No Endurance Discharge Plan OT Discharge Plan At this time, pt would benefit from skilled acute OT services and interventions to further address functional limitations in occupational performance. Pt would benefit from OT services once DC from [facility] if 24/7 care and assistance are present. If no 24/7 care and assist, rehab placement could benefit pt to further address functional limitations in occupational performance. Eval Complexity Eval Charge Codes 17517 - Moderate Complexity PHYSICIAN CERTIFICATION: I certify the specified therapy services for Rafa Driscoll are required, authorized, and reviewed every 30 days.
--- NOTE | 2024-09-08 10:57 | HMH.PTEV ---
Physical Therapy Evaluation Rehab PT IP Evaluation Start: 09/08/24 07:30 Freq: ONCE Status: Active Protocol: Document 09/08/24 10:53 MEE (Rec: 09/08/24 10:57 MEE [id number]) Subjective/History History History 64-year-old gentleman well-known to our facility for recurrent hypernatremia and due to history of traumatic brain injury and lack of thirst drive. Presented with worsening weakness, poor p.o. intake, falling at home. Symptoms have been progressing over the past several days to a week. Sister at bedside helps supplement history. She is unable to care for him due to his weakness and falls at home. She has tried to encourage him to drink but he is just not interested at this time. Having some abdominal discomfort. No daniela emesis today. Workup in the ER, patient is quite fatigued. He is awake and alert but slow to respond to questions stable on room air. Labs show significant electrolyte disturbances with sodium 168, chloride 128, kidney dysfunction with BUN elevated at 63, Cr 1.1. Phosphorus 2.2, magnesium 2.7, TSH 1.46. Medicine consulted for admission and further management due to free water deficit and hyponatremia. Pt lives with sister, 4-5 ZURDO the home, and he generally is independent with all mobility using RW. Subjective Subjective Pt presents awake, supine, agrees to mobility assessment. [facility] How much help from another person do you currently need... Turning from your None back to your side while in a flat bed without using bedrails? Moving from lying on None back to sitting on the side of a flat bed without using bedrails? Moving to and from a None bed to a chair ( including a wheelchair)? Standing up from a None chair using your arms? (e.g., wheelchair, bedside chair) Walking in hospital A little room? Climbing 3-5 steps A little with a railing? Mobility Score 22 Mobility Level [facility] Mobility 7 Walk 25 feet or more Mobility Calculator Rehab PT IP Eval Objective Appearance Patient Behavior Appropriate Patient Orientation Person,Place,Time Difficulty following none instructions Speech Pattern Clear Ambulation Patient Able to Yes Ambulate Ambulation Observation IP General Gait Wide Based Gait Pattern Observation Ambulation Distance 10 (feet) Ambulation Assistive None Device Ambulation Ability Contact Guard/Hand Hold Balance Ability to Arise Able, uses arms to help Sitting Balance Steady, safe Standing Balance Unsteady Dynamic Sitting Good Balance Ability Dynamic Standing Poor Balance Ability Transfers Bed Transfer Ability Supervision/Stand by Chair Transfer Contact Guard/Hand Hold Ability Sit to Stand Bed Contact Guard/Hand Hold Transfer Ability Sit to Stand Chair Contact Guard/Hand Hold Transfer Ability ROM All Extremities PT ROM Status WFL MMT All Extremities PT MMT WFL Rehab PT IP prob,goals,plan Problems Date of Evaluation: 09/08/24 PT IP Problems Transfers,Gait Rehab Potential Rehab Potential Good Plan PT Intervention Plan Transfers,Gait,Therapeutic Exercise PT Plan Frequency Daily Duration LOS Discharge Goals Bed Transfer Ability Independent Sit to Stand Chair Independent Transfer Ability Ambulation Assistive Rolling Walker Device Ambulation Distance 25 (feet) Discharge Plan PT Discharge Plan Pt is currently appropriate to return home with family assist once medically stable for d/c. Skilled therapy is indicated to aid improvement in ambulation and transfers in order to return pt to [facility]. Eval Complexity Eval Charge Codes 09220 - High Complexity PHYSICIAN CERTIFICATION: I certify the specified therapy services for Rafa Driscoll JR are required, authorized, and reviewed every 30 days.
[2024-09-08 15:02] LABS: Anion Gap 11.3 mEq/L (5-15); Blood Urea Nitrogen 23 mg/dl (9-20); Calcium 8.3 mg/dl (8.4-10.2); Carbon Dioxide 28 mmol/L (22.0-30.0); Chloride 111 mmol/L (98-107); Creatinine Clearance Estimated 58 mL/min (50-200); Creatinine,Serum 0.70 mg/dl (0.66-1.25); Estimated Glomerular Filt Rate 114 ml/min (>60); GFR (African American) 138 ML/MIN (>60); Glucose 96 mg/dl (74-100); Potassium 4.3 mmoL/L (3.5-5.1); Sodium 146 mmol/L (136-145)
[2024-09-08 15:31] LABS: Prealbumin 25 mg/dL (10-36)
--- NOTE | 2024-09-08 17:33 | PC.NURSE ---
pt alert and oriented. pt on room air. lung sounds clear. abdomen soft, nontender, bowel sounds active t/o. pt voiding per urinal and bsc. call light w/i reach.
--- NOTE | 2024-09-08 17:44 | EXP.ACUTE.PN ---
Subjective *Date: 09/08/24 *Time: 18:03 Interval history: Pleasant this morning on exam. Stable on room air. Necessitated initiation of Levophed overnight due to hypotension and bradycardia. Weaned off it today. Initiated on midodrine 10 mg 3 times a day. Has significant bradycardia in his past. Remains in sinus bradycardia. Tolerating p.o. intake. Afebrile. No nausea or vomiting. At baseline mentation today Medical Exam Vital signs and Labs for Last 24 Hours: Vital Signs Temp Pulse Pulse Resp BP BP Pulse Ox 09/08/24 17:00 09/08/24 16:00 41 L 09/08/24 15:59 43 L 18 106/55 L 94 L 09/08/24 15:00 09/08/24 12:00 41 L 09/08/24 12:00 46 L 20 98/57 L 95 09/08/24 11:00 77 21 102/52 L 94 L 09/08/24 11:00 09/08/24 10:00 58 L 24 108/66 L 96 09/08/24 09:49 51 L 18 118/65 97 09/08/24 09:00 09/08/24 09:00 97.8 F 60 22 102/62 L 97 09/08/24 08:00 41 L 09/08/24 08:00 60 23 120/67 97 09/08/24 08:00 52 L 18 108/68 L 99 09/08/24 08:00 100 09/08/24 07:45 42 L 22 119/66 98 09/08/24 07:31 51 L 12 126/54 L 97 09/08/24 07:16 56 L 20 125/49 L 95 09/08/24 07:00 09/08/24 07:00 42 L 25 H 125/59 L 95 09/08/24 06:45 120/59 L 09/08/24 06:45 43 L 23 94 L 09/08/24 06:33 43 L 23 95 09/08/24 06:33 123/65 09/08/24 06:30 50 L 26 H 93 L 09/08/24 06:16 121/61 09/08/24 06:16 42 L 21 93 L 09/08/24 06:00 46 L 16 112/45 L 92 L 09/08/24 05:56 89 L 09/08/24 05:50 43 L 25 H 91 L 09/08/24 05:50 41 L 22 119/61 90 L 09/08/24 05:31 38 L 21 96 09/08/24 05:31 42 L 20 96/55 L 90 L 09/08/24 05:30 21 09/08/24 05:04 40 L 20 96 09/08/24 05:04 38 L 85/49 L 09/08/24 05:00 42 L 20 92 L 09/08/24 05:00 38 L 82/44 L 09/08/24 05:00 09/08/24 04:30 97.8 F 41 L 19 96/45 L 93 L 09/08/24 04:00 09/08/24 04:00 40 L 09/08/24 03:00 09/08/24 02:45 93/53 L 09/08/24 02:45 43 L 22 93 L 09/08/24 02:30 42 L 18 97/54 L 94 L 09/08/24 02:30 16 09/08/24 02:03 41 L 20 74/39 L 97 09/08/24 02:03 41 L 20 97 09/08/24 02:02 54 L 21 96 09/08/24 02:02 42 L 18 64/33 L 97 09/08/24 02:01 67/32 L 09/08/24 02:01 55 L 21 94 L 09/08/24 02:00 21 09/08/24 02:00 43 L 20 78/40 L 96 09/08/24 01:30 43 L 20 95 09/08/24 01:00 39 L 19 94 L 09/08/24 01:00 09/08/24 00:30 41 L 17 95 09/08/24 00:09 97.5 F L 41 L 18 92/54 L 96 09/08/24 00:00 92/54 L 09/08/24 00:00 41 L 20 96 09/08/24 00:00 09/08/24 00:00 40 L 09/07/24 23:53 46 L 19 100 09/07/24 23:53 97/56 L 09/07/24 23:30 49 L 20 97 09/07/24 23:00 38 L 21 97 09/07/24 23:00 09/07/24 22:30 44 L 21 96 09/07/24 22:29 45 L 18 95/54 L 96 09/07/24 22:00 48 L 23 95/54 L 97 09/07/24 21:00 09/07/24 21:00 58 L 22 90/57 L 98 09/07/24 20:00 09/07/24 20:00 52 L 09/07/24 20:00 98.7 F 52 L 25 H 100/59 L 99 09/07/24 19:00 50 L 23 100/62 L 98 09/07/24 18:45 48 L 24 95/53 L 97 09/07/24 18:30 50 L 20 103/51 L 97 09/07/24 18:26 09/07/24 18:16 47 L 19 97/47 L 97 09/07/24 18:00 45 L 23 95/51 L 97 09/07/24 17:47 51 L 16 93/55 L 98 O2 Del Method O2 Flow Rate 09/08/24 17:00 Room Air 09/08/24 16:00 09/08/24 15:59 Room Air 09/08/24 15:00 Room Air 09/08/24 12:00 09/08/24 12:00 09/08/24 11:00 09/08/24 11:00 Room Air 09/08/24 10:00 09/08/24 09:49 Room Air 09/08/24 09:00 Room Air 09/08/24 09:00 Nasal Cannula 2 09/08/24 08:00 09/08/24 08:00 Nasal Cannula 2 09/08/24 08:00 Room Air 09/08/24 08:00 Room Air 09/08/24 07:45 09/08/24 07:31 09/08/24 07:16 09/08/24 07:00 Room Air 09/08/24 07:00 09/08/24 06:45 09/08/24 06:45 Nasal Cannula 2 09/08/24 06:33 Nasal Cannula 2 09/08/24 06:33 09/08/24 06:30 Nasal Cannula 2 09/08/24 06:16 09/08/24 06:16 Nasal Cannula 2 09/08/24 06:00 Nasal Cannula 2 09/08/24 05:56 Room Air 09/08/24 05:50 09/08/24 05:50 Room Air 09/08/24 05:31 09/08/24 05:31 Room Air 09/08/24 05:30 09/08/24 05:04 Room Air 09/08/24 05:04 09/08/24 05:00 Room Air 09/08/24 05:00 09/08/24 05:00 Room Air 09/08/24 04:30 Room Air 09/08/24 04:00 Room Air 09/08/24 04:00 09/08/24 03:00 Room Air 09/08/24 02:45 09/08/24 02:45 09/08/24 02:30 09/08/24 02:30 09/08/24 02:03 09/08/24 02:03 09/08/24 02:02 09/08/24 02:02 09/08/24 02:01 09/08/24 02:01 09/08/24 02:00 09/08/24 02:00 Room Air 09/08/24 01:30 09/08/24 01:00 09/08/24 01:00 Room Air 09/08/24 00:30 09/08/24 00:09 Room Air 09/08/24 00:00 09/08/24 00:00 09/08/24 00:00 Room Air 09/08/24 00:00 09/07/24 23:53 09/07/24 23:53 09/07/24 23:30 09/07/24 23:00 09/07/24 23:00 Room Air 09/07/24 22:30 09/07/24 22:29 Room Air 09/07/24 22:00 Room Air 09/07/24 21:00 Room Air 09/07/24 21:00 Room Air 09/07/24 20:00 Room Air 09/07/24 20:00 09/07/24 20:00 Room Air 09/07/24 19:00 Room Air 09/07/24 18:45 Room Air 09/07/24 18:30 Room Air 09/07/24 18:26 Room Air 09/07/24 18:16 Room Air 09/07/24 18:00 Room Air 09/07/24 17:47 Room Air Intake and Output 09/08/24 09/08/24 09/08/24 07:59 15:59 23:59 Intake Total 772 / 868.448 96.448 / 868.448 Output Total 825 / 1375 400 / 1375 150 / 1375 Balance -53 / -506.552 -303.552 / -506.552 -150 / -506.552 Intake: Intake, Oral Amount 240 / 315 75 / 315 Intake, Total IV Amount 532 / 553.448 21.448 / 553.448 Lactated Ringers 1000ML 1,000 500 / 500 ml @ 100 mls/hr IV .Q10H [facility] Rx #:[id number] Output: Output, Urine Amount 825 / 1375 400 / 1375 150 / 1375 Other: Number of Unmeasured Voids 1 Weight 54.7 kg Patient Weight 09/08/24 23:59 Weight 54.7 kg Laboratory Results - last 24 hr 09/06/24 16:30: Prealbumin 09/07/24 22:14: Sodium 149 H, Potassium 3.6, Chloride 113 H, Carbon Dioxide 30, Anion Gap 9.6, BUN 33 H, Creatinine 0.80, Estimated Creat Clear 59, Estimated GFR 98, Est GFR ( Amer) 118, Glucose 113 H, Calcium 8.1 L 09/08/24 06:32: WBC 11.9 H, RBC 3.93 L, Hgb 13.0 L, Hct 39.3 L, MCV 100.0 H, MCH 33.1 H, MCHC 33.1, RDW 12.9, Plt Count 126 L, MPV 14.4 H, Neut % (Auto) 53.7, Lymph % (Auto) 36.8, [facility] % (Auto) 6.4, Eos % (Auto) 2.6, Baso % (Auto) 0.2, Neut # (Auto) 6.4, Lymph # (Auto) 4.4, [facility] # (Auto) 0.8, Eos # (Auto) 0.3, Baso # (Auto) 0.0, Sodium 148 H, Potassium 3.3 L, Chloride 112 H, Carbon Dioxide 29, Anion Gap 10.3, BUN 26 H, Creatinine 0.70, Estimated Creat Clear 58, Estimated GFR 114, Est GFR ( Amer) 138, Glucose 116 H, Calcium 8.4, Phosphorus 2.3 L, Magnesium 2.1, Total Bilirubin 1.0, AST 34 D, ALT 23, Alkaline Phosphatase 115, Total Protein 6.0 L, Albumin 3.3 L D, Globulin 2.7, Albumin/Globulin Ratio 1.2 09/08/24 14:32: Sodium 146 H, Potassium 4.3 D, Chloride 111 H, Carbon Dioxide 28, Anion Gap 11.3, BUN 23 H, Creatinine 0.70, Estimated Creat Clear 58, Estimated GFR 114, Est GFR ( Amer) 138, Glucose 96, Calcium 8.3 L I & O for Labs for Last 24 Hours: Intake & Output 09/05/24 09/06/24 09/07/24 09/08/24 23:59 23:59 23:59 23:59 Intake Total 2624.824 / 2744.824 868.448 / 868.448 Output Total 400 / 400 600 / 600 1375 / 1375 Balance -400 / -160 2024.824 / 2144.824 -506.552 / -506.552 Weight 54.034 kg 54.703 kg 54.7 kg Microbiology Reports for the Last 24 Hours: Microbiology 09/06/24 18:41 Anus CRE Surveillance Culture - Final Negative Constitutional: Present no acute distress, cachectic, chronically ill appearing and cooperative Head: Present atraumatic and normocephalic ENT: Present normal exam Neck: Present normal inspection Respiratory: Present normal respiratory effort; Absent rhonchi, wheezes or crackles Cardiac: Present Regular Rhythm and Bradycardia GI: Present normal bowel sounds; Absent tenderness Extremities: Present normal inspection and full ROM Skin: Present intact; Absent erythema Neuro: Present Grossly Intact, alert, awake and moves all extremities Comment:: Oriented to self and place, little bit more energetic and interactive today. Assessment and Plan *Assessment and plan (1) Hyperosmolality and hypernatremia: Status: Acute Category: Medical Code(s): E87.0 - Hyperosmolality and hypernatremia (2) Fall: Status: Acute Category: Medical Code(s): W19.XXXA - Unspecified fall, initial encounter (3) Acute dehydration: Status: Resolved Category: Medical Code(s): E86.0 - Dehydration (4) Generalized weakness: Status: Acute Category: Medical Code(s): R53.1 - Weakness (5) LORETTA (acute kidney injury): Status: Resolved Category: Medical Code(s): N17.9 - Acute kidney failure, unspecified (6) Minor head injury: Status: Acute Category: Medical Code(s): S09.90XA - Unspecified injury of head, initial encounter (7) Hypophosphatemia: Status: Resolved Category: Medical Code(s): E83.39 - Other disorders of phosphorus metabolism (8) History of traumatic brain injury: Status: Chronic Category: Medical Code(s): Z87.820 - Personal history of traumatic brain injury (9) Hypodipsia/adipsia: Status: Acute Category: Medical Code(s): E87.0 - Hyperosmolality and hypernatremia (10) History of coronary atherosclerosis: Status: Chronic Category: Medical Code(s): Z86.79 - Personal history of other diseases of the circulatory system (11) 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 Category: Medical Code(s): R41.89 - Other symptoms and signs involving cognitive functions and awareness; S06.9XAS - Unspecified intracranial injury with loss of consciousness status unknown, sequela (12) Diabetes insipidus: Status: Chronic Category: Medical Code(s): E23.2 - Diabetes insipidus (13) Severe protein-calorie malnutrition: Status: Acute Category: Medical Code(s): E43 - Unspecified severe protein-calorie malnutrition (14) Bradycardia: Status: Chronic Category: Medical Code(s): R00.1 - Bradycardia, unspecified Plan 64-year-old male with PMHx of moderate hypernatremia, traumatic brain injury, seizure, presented to the emergency department with weakness and nausea. Found to have elevated sodium at 168 and LORETTA with BUN of 63, cr 1.1. Discussed case with ER physician, request admission for management of his electrolyte disturbances. Patient has known history of traumatic brain injury with lack of thirst drive. Showing gradual improvement. Improved to the point he can de-escalate out of the ICU. Continues to require inpatient management. Problems addressed as follows: Hyperosmolality and hypernatremia Generalized weakness Hypodipsia/adipsia History of traumatic brain injury LORETTA Hypophosphatemia -Sodium 168, chloride 128 on presentation. Slowly improving. Correcting at a rate of approximately 10 mEq/day. Currently on LR. Sodium this morning 148, chloride 112, Potassium 3.3. Monitor sodium every 8 hours. Continue p.o. free water intake. - Free water deficit calculated at admission of 6.5 L for goal sodium of 140. Correction rate of 8 to 10 mEq/day - Repeat CBC, CMP, magnesium ordered to the morning. - Strict I's and O's - Kidney function on admission with BUN down from 63, improved to 26 this morning with creatinine 0.7 No active nausea at this time. Initiated on Zofran 4 mg IV every 8 hours as needed. Will continue pantoprazole 40 mg HS and resume home famotidine daily as well. Advance diet as tolerated - Will consider further evaluation of esophagus and stomach if unable to tolerate p.o. intake due to previous presentations with similar p.o. intolerance, dyspepsia, nausea and vomiting. CAD: Holding aspirin and statin pending improvement in p.o. intake and electrolyte disturbances Bradycardia: Present on previous admissions. Chronic. Asymptomatic sinus bradycardia. No chest pain or discomfort. - Was hypotensive overnight. Increased midodrine to 10 mg 3 times a day. Goal SBP greater than 90 or MAP greater than 60. Able to wean off Levophed this morning. History of seizure disorder: Continue Keppra 500 mg twice daily per home regimen Historically on previous visits has had a difficult time with bowel movements due to his dehydration. Initiated on MiraLAX daily and docusate daily. Heparin subcu 5000 units 3 times daily for DVT prophylaxis On Protonix for GERD Regular diet Full code
[2024-09-08] MEDS: PANTOPRAZOLE 40MG TABLET 40 MG PO (20:33)
[2024-09-08 22:23] LABS: Anion Gap 9.7 mEq/L (5-15); Blood Urea Nitrogen 19 mg/dl (9-20); Calcium 7.5 mg/dl (8.4-10.2); Carbon Dioxide 28 mmol/L (22.0-30.0); Chloride 109 mmol/L (98-107); Creatinine Clearance Estimated 58 mL/min (50-200); Creatinine,Serum 0.70 mg/dl (0.66-1.25); Estimated Glomerular Filt Rate 114 ml/min (>60); GFR (African American) 138 ML/MIN (>60); Glucose 79 mg/dl (74-100); Potassium 3.7 mmoL/L (3.5-5.1); Sodium 143 mmol/L (136-145)
[2024-09-09] MEDS: LACTATED RINGERS 1000ML 1,000 ML 150 ML IV (02:57)
[2024-09-09 03:00] VITALS: BP 97/49; PULSE 42; RESP 19; TEMP 36.4; O2SAT 94; BMI 18.1
[2024-09-09 04:00] VITALS: PULSE 36
[2024-09-09 06:44] LABS: Hematocrit 37.0 % (42.0-52.0); Hemoglobin 11.7 g/dL (14.1-18.0); Immature Granulocytes % 0.3 %; Mean Corpuscular HGB Conc 31.6 g/dL (31.8-35.4); Mean Corpuscular Hemoglobin 32.1 pg (27.0-31.2); Mean Corpuscular Volume 101.4 fl (80-94); Nucleated Red Blood Cells % 0 %; Platelet Count 109 K/mm3 (142-424); Red Blood Count 3.65 M/mm3 (4.60-6.20); Red Cell Distribution Width-SD 47.2 fL; White Blood Count 7.1 K/mm3 (4.8-10.8)
[2024-09-09 06:57] LABS: Alanine Aminotransferase 19 U/L (12-78); Albumin Level 2.7 g/dl (3.5-5.0); Albumin/Globulin Ratio 1.2 (1.1-1.8); Alkaline Phosphatase 86 U/L (38-126); Anion Gap 7.1 mEq/L (5-15); Aspartate Amino Transferase 28 U/L (17-59); Bilirubin,Total 0.7 mg/dl (0.2-1.3); Blood Urea Nitrogen 17 mg/dl (9-20); Calcium 8.5 mg/dl (8.4-10.2); Carbon Dioxide 31 mmol/L (22.0-30.0); Chloride 109 mmol/L (98-107); Creatinine Clearance Estimated 59 mL/min (50-200); Creatinine,Serum 0.80 mg/dl (0.66-1.25); Estimated Glomerular Filt Rate 98 ml/min (>60); GFR (African American) 118 ML/MIN (>60); Globulin 2.3 g/dL (1.3-3.2); Glucose 85 mg/dl (74-100); Magnesium 2.1 mg/dl (1.6-2.3); Potassium 4.1 mmoL/L (3.5-5.1); Sodium 143 mmol/L (136-145); Total Protein,Serum 5.0 g/dl (6.3-8.2)
[2024-09-09] MEDS: ONDANSETRON 4MG/2ML VIAL 4 MG IV ×2 (07:16→17:22)
[2024-09-09 07:42] LABS: Phosphorous 1.9 mg/dl (2.5-4.5)
[2024-09-09 08:00] VITALS: BP 88/46; BP 93/46; PULSE 36; PULSE 42; PULSE 43; RESP 18; TEMP 36.5; O2SAT 93; O2SAT 94; O2SAT 95
[2024-09-09] MEDS: HEPARIN SODIUM 5,000 UNIT/ML VIAL 5000 UNIT SUBCUT ×3 (08:30→20:58)
[2024-09-09] MEDS: K-PHOS NEUTRAL 250MG TABLET 250 MG PO ×3 (08:30→20:58)
[2024-09-09] MEDS: DEXTROSE 5 % IN WATER 1,000 ML 125 ML IV (08:30)
[2024-09-09] MEDS: DOCUSATE SODIUM 100 MG CAPSULE PO (08:31)
[2024-09-09] MEDS: FAMOTIDINE 20MG TABLET 20 MG PO (08:31)
[2024-09-09] MEDS: POLYETHYLENE GLYCOL 3350 17 GM PACKET PO (08:32)
[2024-09-09] MEDS: MIDODRINE HCL 5 MG TABLET 10 MG PO ×3 (08:32→20:58)
--- NOTE | 2024-09-09 10:55 | PC.NURSE ---
pt moved from unit to second floor, med surg.
[2024-09-09 12:00] VITALS: BP 117/64; PULSE 39; PULSE 50; RESP 14; TEMP 35.6; O2SAT 97
[2024-09-09] MEDS: DESMOPRESSIN 0.1 MG 2 EACH PO ×2 (12:19→20:58)
--- NOTE | 2024-09-09 14:33 | PC.NURSE ---
Pt noted to have rectal temp of 96.1. Warm blankets applied. Temp in room increased. MD notified. Pt is resting in bed. No complaints at this time.
[2024-09-09 16:00] VITALS: BP 105/56; PULSE 30; PULSE 33; RESP 16; TEMP 35.7; O2SAT 98
[2024-09-09 18:41] LABS: Alanine Aminotransferase 22 U/L (12-78); Albumin Level 3.1 g/dl (3.5-5.0); Albumin/Globulin Ratio 1.2 (1.1-1.8); Alkaline Phosphatase 104 U/L (38-126); Anion Gap 10.8 mEq/L (5-15); Aspartate Amino Transferase 33 U/L (17-59); Bilirubin,Total 0.7 mg/dl (0.2-1.3); Blood Urea Nitrogen 17 mg/dl (9-20); Calcium 8.4 mg/dl (8.4-10.2); Carbon Dioxide 29 mmol/L (22.0-30.0); Chloride 105 mmol/L (98-107); Creatinine Clearance Estimated 59 mL/min (50-200); Creatinine,Serum 0.70 mg/dl (0.66-1.25); Estimated Glomerular Filt Rate 114 ml/min (>60); GFR (African American) 138 ML/MIN (>60); Globulin 2.5 g/dL (1.3-3.2); Glucose 75 mg/dl (74-100); Potassium 3.8 mmoL/L (3.5-5.1); Sodium 141 mmol/L (136-145); Total Protein,Serum 5.6 g/dl (6.3-8.2)
--- NOTE | 2024-09-09 18:44 | PC.NURSE ---
Pt is awake sitting up in bed c/o nausea this evening. medicated per may. He did not eat well for dinner, but did eat good for lunch. Pt has remained bradycardic since arrival to floor with HR as low as 30s. MD aware. Call light is within reach. Safety measures in place.
[2024-09-09 20:00] VITALS: BP 109/51; PULSE 35; PULSE 40; PULSE 41; RESP 16; TEMP 36.3; O2SAT 96
[2024-09-09] MEDS: PANTOPRAZOLE 40MG TABLET 40 MG PO (20:58)
--- NOTE | 2024-09-09 22:24 | P.PN_ITS ---
Subjective *Date: 09/09/24 *Time: 22:24 Exam Data for Last 24 hours Vital signs and Labs for Last 24 Hours: Temp Pulse Resp BP Pulse Ox O2 Del Method O2 Flow Rate 97.4 F L 41 L 16 109/51 L 96 Room Air 2 09/09/24 20:00 09/09/24 20:00 09/09/24 20:00 09/09/24 20:00 09/09/24 20:00 09/09/24 21:00 09/09/24 08:00 Laboratory Results - last 24 hr 09/08/24 22:02: Sodium 143, Potassium 3.7, Chloride 109 H, Carbon Dioxide 28, Anion Gap 9.7, BUN 19, Creatinine 0.70, Estimated Creat Clear 58, Estimated GFR 114, Est GFR ( Amer) 138, Glucose 79, Calcium 7.5 L 09/09/24 06:30: WBC 7.1 D, RBC 3.65 L, Hgb 11.7 L, Hct 37.0 L, MCV 101.4 H, MCH 32.1 H, MCHC 31.6 L, RDW 12.7, Plt Count 109 L, MPV 13.4 H, Neut % (Auto) 62.1, Lymph % (Auto) 28.1, [place] % (Auto) 7.6, Eos % (Auto) 1.8, Baso % (Auto) 0.1, Neut # (Auto) 4.4, Lymph # (Auto) 2.0, [place] # (Auto) 0.5, Eos # (Auto) 0.1, Baso # (Auto) 0.0, Sodium 143, Potassium 4.1, Chloride 109 H, Carbon Dioxide 31 H, Anion Gap 7.1, BUN 17, Creatinine 0.80, Estimated Creat Clear 59, Estimated GFR 98, Est GFR ( Amer) 118, Glucose 85, Calcium 8.5, Phosphorus 1.9 L, Magnesium 2.1, Total Bilirubin 0.7, AST 28, ALT 19, Alkaline Phosphatase 86, Total Protein 5.0 L, Albumin 2.7 L D, Globulin 2.3, Albumin/Globulin Ratio 1.2 09/09/24 18:17: Sodium 141, Potassium 3.8, Chloride 105, Carbon Dioxide 29, Anion Gap 10.8, BUN 17, Creatinine 0.70, Estimated Creat Clear 59, Estimated GFR 114, Est GFR ( Amer) 138, Glucose 75, Calcium 8.4, Total Bilirubin 0.7, AST 33, ALT 22, Alkaline Phosphatase 104, Total Protein 5.6 L, Albumin 3.1 L D, Globulin 2.5, Albumin/Globulin Ratio 1.2 I & O for Last 24 hours: Intake & Output 09/06/24 09/07/24 09/08/24 09/09/24 23:59 23:59 23:59 23:59 Intake Total 2624.824 / 2744.824 1108.448 / 2098.448 2165 / 2165 Output Total 400 / 400 600 / 600 1925 / 2125 1725 / 1725 Balance -400 / -160 2024.824 / 2144.824 -816.552 / -26.552 440 / 440 Weight 54.034 kg 54.703 kg 54.7 kg 55.61 kg Constitutional Constitutional: no acute distress, thin, chronically ill appearing and cooperative *Routine HEENT Exam Head: Present normocephalic Eye: Present EOMI and PERRL ENT: Present mucous membranes moist *Routine Neck Exam Neck: Present supple; Absent lymphadenopathy *Routine Respiratory Exam Respiratory: Present CTA bilaterally; Absent rhonchi, wheezes or crackles *Routine Cardiovascular Exam Cardiovascular: Present RRR and bradycardia *Routine Abdominal Exam Abdominal: Present soft and normoactive bowel sounds; Absent tenderness *Routine Rectal Exam Patient deferred: visual exam *Routine Exam Patient deferred: penile exam *Routine Extremities Exam Extremities: Absent cyanosis, clubbing or edema *Routine Skin Exam Skin: Present warm; Absent rash *Routine Neurological Exam Neurological: Present alert, oriented X3 and moving all extremities; Absent altered mental status Assessment and Plan *Assessment and plan (1) Hyperosmolality and hypernatremia: Status: Acute Category: Medical Code(s): E87.0 - Hyperosmolality and hypernatremia (2) Fall: Status: Acute Category: Medical Code(s): W19.XXXA - Unspecified fall, initial encounter (3) Acute dehydration: Status: Resolved Category: Medical Code(s): E86.0 - Dehydration (4) Generalized weakness: Status: Acute Category: Medical Code(s): R53.1 - Weakness (5) LORETTA (acute kidney injury): Status: Resolved Category: Medical Code(s): N17.9 - Acute kidney failure, unspecified (6) Minor head injury: Status: Acute Category: Medical Code(s): S09.90XA - Unspecified injury of head, initial encounter (7) Hypophosphatemia: Status: Resolved Category: Medical Code(s): E83.39 - Other disorders of phosphorus metabolism (8) History of traumatic brain injury: Status: Chronic Category: Medical Code(s): Z87.820 - Personal history of traumatic brain injury (9) Hypodipsia/adipsia: Status: Acute Category: Medical Code(s): E87.0 - Hyperosmolality and hypernatremia (10) History of coronary atherosclerosis: Status: Chronic Category: Medical Code(s): Z86.79 - Personal history of other diseases of the circulatory system (11) 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 Category: Medical Code(s): R41.89 - Other symptoms and signs involving cognitive functions and awareness; S06.9XAS - Unspecified intracranial injury with loss of consciousness status unknown, sequela (12) Diabetes insipidus: Status: Chronic Category: Medical Code(s): E23.2 - Diabetes insipidus (13) Severe protein-calorie malnutrition: Status: Acute Category: Medical Code(s): E43 - Unspecified severe protein-calorie malnutrition (14) Bradycardia: Status: Chronic Category: Medical Code(s): R00.1 - Bradycardia, unspecified Plan 64-year-old male with PMHx of moderate hypernatremia, traumatic brain injury, seizure, presented to the emergency department with weakness and nausea. Found to have elevated sodium at 168 and LORETTA with BUN of 63, cr 1.1. Discussed case with ER physician, request admission for management of his electrolyte disturbances. Patient has known history of traumatic brain injury with lack of thirst drive. Showing gradual improvement. Improved to the point he can de- escalate out of the ICU. Continues to require inpatient management. Problems addressed as follows: #Suspected diabetes insipidus Hyperosmolality and hypernatremia Generalized weakness Hypodipsia/adipsia History of traumatic brain injury LORETTA Hypophosphatemia -Sodium 168, chloride 128 on presentation. Slowly improving. Correcting at a rate of approximately 10 mEq/day. ?Sodium 143 today in the setting of LR fluid resuscitation. ? After further review, patient seems to be having longstanding hyponatremia since at least 2019. With a history of TBI, there is high suspicion for central diabetes insipidus. ? Will trial desmopressin 0.2 mg 3 times daily. Follow-up sodium, CMP, thirst, urine output. - Free water deficit calculated at admission of 6.5 L for goal sodium of 140. Correction rate of 8 to 10 mEq/day - Repeat CBC, CMP, magnesium ordered to the morning. - Strict I's and O's - Kidney function on admission with BUN down from 63, improved to 26 this morning with creatinine 0.7 No active nausea at this time. Initiated on Zofran 4 mg IV every 8 hours as needed. Will continue pantoprazole 40 mg HS and resume home famotidine daily as well. Advance diet as tolerated - Will consider further evaluation of esophagus and stomach if unable to tolerate p.o. intake due to previous presentations with similar p.o. intolerance, dyspepsia, nausea and vomiting. CAD: Holding aspirin and statin pending improvement in p.o. intake and electrolyte disturbances Bradycardia: Present on previous admissions. Chronic. Asymptomatic sinus bradycardia. No chest pain or discomfort. - Was hypotensive overnight. Increased midodrine to 10 mg 3 times a day. Goal SBP greater than 90 or MAP greater than 60. Able to wean off Levophed this morning. History of seizure disorder: Continue Keppra 500 mg twice daily per home regimen Historically on previous visits has had a difficult time with bowel movements due to his dehydration. Initiated on MiraLAX daily and docusate daily. Heparin subcu 5000 units 3 times daily for DVT prophylaxis On Protonix for GERD Regular diet Full code
[2024-09-10] VITALS: BP 89/44; PULSE 40; PULSE 42; RESP 16; TEMP 36.4; O2SAT 92
[2024-09-10 01:40] LABS: Sodium,Urine Random 190.0 mmol/L (30-90)
[2024-09-10 04:00] VITALS: BP 89/43; PULSE 45; PULSE 49; RESP 16; TEMP 36.6; O2SAT 94; BMI 20.9
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
[2024-09-10 07:08] LABS: Hematocrit 32.8 % (42.0-52.0); Hemoglobin 11.1 g/dL (14.1-18.0); Immature Granulocytes % 0.4 %; Mean Corpuscular HGB Conc 33.8 g/dL (31.8-35.4); Mean Corpuscular Hemoglobin 33.2 pg (27.0-31.2); Mean Corpuscular Volume 98.2 fl (80-94); Nucleated Red Blood Cells % 0 %; Platelet Count 101 K/mm3 (142-424); Red Blood Count 3.34 M/mm3 (4.60-6.20); Red Cell Distribution Width-SD 44.9 fL; White Blood Count 7.1 K/mm3 (4.8-10.8)
[2024-09-10 07:20] LABS: Alanine Aminotransferase 22 U/L (12-78); Albumin Level 2.6 g/dl (3.5-5.0); Albumin/Globulin Ratio 1.1 (1.1-1.8); Alkaline Phosphatase 98 U/L (38-126); Anion Gap 9.1 mEq/L (5-15); Aspartate Amino Transferase 31 U/L (17-59); Bilirubin,Total 0.7 mg/dl (0.2-1.3); Blood Urea Nitrogen 19 mg/dl (9-20); Calcium 7.9 mg/dl (8.4-10.2); Carbon Dioxide 27 mmol/L (22.0-30.0); Chloride 106 mmol/L (98-107); Creatinine Clearance Estimated 68 mL/min (50-200); Creatinine,Serum 0.80 mg/dl (0.66-1.25); Estimated Glomerular Filt Rate 98 ml/min (>60); GFR (African American) 118 ML/MIN (>60); Globulin 2.4 g/dL (1.3-3.2); Glucose 78 mg/dl (74-100); Potassium 3.1 mmoL/L (3.5-5.1); Sodium 139 mmol/L (136-145); Total Protein,Serum 5.0 g/dl (6.3-8.2)
[2024-09-10 08:00] VITALS: BP 103/52; PULSE 47; PULSE 50; RESP 16; TEMP 36.5; O2SAT 92
[2024-09-10] MEDS: HEPARIN SODIUM 5,000 UNIT/ML VIAL 5000 UNIT SUBCUT ×2 (09:14→12:51)
[2024-09-10] MEDS: FAMOTIDINE 20MG TABLET 20 MG PO (09:14)
[2024-09-10] MEDS: DOCUSATE SODIUM 100 MG CAPSULE PO (09:14)
[2024-09-10] MEDS: MIDODRINE HCL 5 MG TABLET 10 MG PO ×2 (09:14→12:51)
[2024-09-10] MEDS: K-PHOS NEUTRAL 250MG TABLET 250 MG PO ×2 (09:15→12:50)
[2024-09-10] MEDS: POLYETHYLENE GLYCOL 3350 17 GM PACKET PO (09:15)
[2024-09-10] MEDS: DESMOPRESSIN 0.1 MG 2 EACH PO ×2 (09:16→12:51)
--- NOTE | 2024-09-10 11:23 | PC.NURSE ---
DID WALK TEST WITH PT PER HOSPITALIST REQUEST. PT AMBULATED APPROX FT WITH WALKER/ STANDBY ASSISTANCE. HR REMAINED 45-55. PT VERBALIZED SLIGHT DIZZINESS, BUT STATES THIS IS HIS BASELINE AT HOME.
[2024-09-10 12:21] VITALS: BMI 20.9
--- NOTE | 2024-09-10 12:36 | SW/DCPLANNER ---
Addendum entered by Kayleigh Del Castillo 09/10/24 15:01: [facility] take patient due to they dont service [facility]. Azul Dickinson Addendum entered by Kayleigh Del Castillo 09/10/24 14:29: [facility] is not able to accept patient. I faxed patient's information to [facility] and will update once i hear back if they are able to accept patient. Azul Dickinson Addendum entered by Kayleigh Del Castillo 09/10/24 14:06: [facility] is not able to accept patient due to having a hard time the last time getting in contact with patient. I faxed patient's information to [facility] and will update once i hear back from them. Azul Dickinson Original Note: Spoke with patient once he is medically stable and ready for discharge if he would be interested in home health services. Patient stated that he would like to have home health and that he had home health before and it was with [facility]. I faxed patient's information to [facility] and will update once i hear back from them if they can accept or not. Azul Dickinson
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
[2024-09-10] MEDS: POTASSIUM CHLORIDE 20MEQ TAB 40 MEQ PO (12:50)
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
[2024-09-10 13:49] LABS: Chloride 103 mmol/L (98-107); Potassium 3.6 mmoL/L (3.5-5.1); Sodium 137 mmol/L (136-145)
[2024-09-10 13:52] LABS: Blood Urea Nitrogen 19 mg/dl (9-20); Creatinine Clearance Estimated 68 mL/min (50-200); Creatinine,Serum 0.80 mg/dl (0.66-1.25); Estimated Glomerular Filt Rate 98 ml/min (>60); GFR (African American) 118 ML/MIN (>60)
[2024-09-10 13:53] LABS: Anion Gap 8.6 mEq/L (5-15); Calcium 8.4 mg/dl (8.4-10.2); Carbon Dioxide 29 mmol/L (22.0-30.0); Glucose 84 mg/dl (74-100)
--- NOTE | 2024-09-11 13:28 | SW/DCPLANNER ---
Spoke with patient's niece on the phone. Patient's niece stated that patient is doing well. Patient's niece stated that she has called and scheduled his follow up appointments. Patient's niece stated that she was able to get patient's new medicine picked up from clinic pharmacy. Patient's niece stated that she has no concerns or questions at this time. I offered patient's niece if patient would be interested in outpatient therapy and she stated that they would try that out since no luck at getting home health services. Will send order down to therapy for they can call and schedule an appointment. Azul SINGH Document Review Attorney
[2024-09-13 20:13] LABS: Osmolality, Urine 805 mOsmol/kg (.)
== END 2024-09-10 14:33 | disposition home or self-care (01) | DRG 643 ==
LOC: ER 16:39 → ICU 09-07 00:20 → 2ND 09-09 10:14
PROVIDERS: Student in an Organized Health Care Education/Training Program; Admitting Provider Internal Medicine Adolescent Medicine; Emergency Provider Student in an Organized Health Care Education/Training Program; PCP Family Medicine; Visit Provider Internal Medicine Adolescent Medicine
DX: E23.2 Diabetes insipidus (principal); E43 Unspecified severe protein-calorie malnutrition; R57.1 Hypovolemic shock; N17.9 Acute kidney failure, unspecified; E86.0 Dehydration; R53.1 Weakness; E83.39 Other disorders of phosphorus metabolism; R41.89 Other symptoms and signs involving cognitive functions and awareness; F17.210 Nicotine dependence, cigarettes, uncomplicated; K21.9 Gastro-esophageal reflux disease without esophagitis; R00.1 Bradycardia, unspecified; G40.909 Epilepsy, unspecified, not intractable, without status epilepticus; I25.10 Atherosclerotic heart disease of native coronary artery without angina pectoris; S09.90XA Unspecified injury of head, initial encounter; I95.9 Hypotension, unspecified; S06.9XAS Unspecified intracranial injury with loss of consciousness status unknown, sequela; Z68.20 Body mass index [BMI] 20.0-20.9, adult; Z87.820 Personal history of traumatic brain injury; Z79.82 Long term (current) use of aspirin; Z79.899 Other long term (current) drug therapy
CPT/HCPCS: 36415; 70450; 71045; 72125; 80048; 80053; 81001; 82550; 83735; 83880; 83930; 83935; 84100; 84134; 84443; 84484; 84540; 85025; 87081; 93005; 93225; 93227; 93306; 97110; 97163; 97166; 97530; 97535; J1644; J2405; J2470; J7070; J7120